=== PATIENT | female | born 1955 | race Caucasian/White ===

== ENCOUNTER 2018-11-30 10:12 | Outpatient (CLI) | payer BC, MEDICARE ==
[~2018-11-30] VITALS: Ht 170.2 cm; Wt 104.4 kg
[~2018-11-30 10:12] MED LIST: AC325T PO; ASP81TEC PO; MULT-974 PO; PANT40TA2 PO; PNT40TEC PO; SERT25TA5 PO
== END 2018-11-30 10:36 | disposition home or self-care (01) ==
LOC: PREOP 10:12
PROVIDERS: ATTEND Surgery
DX: Z01.818 Encounter for other preprocedural examination (principal)

== ENCOUNTER 2018-12-03 08:55 | Inpatient (IN) | payer BC, MEDICARE ==
[2018-12-03] VITALS (13 sets, daily range): BP systolic 106–138; BP diastolic 47–84
[~2018-12-03] VITALS: Ht 170.2 cm; Wt 104.4 kg
[2018-12-03] MEDS: LACTATED RINGERS 1,000 ML IV PRN ×3 (09:20→12:40)
[2018-12-03 09:24] LABS: BASOPHILS % (AUTO) 0 % (0-10); EOSINOPHILS # (AUTO) 0.1 10^3/uL (0.0-0.3); EOSINOPHILS % (AUTO) 2 % (0-10); HEMATOCRIT 42 % (35-52); HEMOGLOBIN 14.1 G/DL (11.5-16.0); LYMPHOCYTES # (AUTO) 2.1 X 10^3 (1.0-4.0); LYMPHOCYTES % (AUTO) 35 % (12-44); MEAN CORPUSCULAR HEMOGLOBIN 29 PG (25-34); MEAN CORPUSCULAR HGB CONC 34 G/DL (32-36); MEAN CORPUSCULAR VOLUME 85 FL (80-99); MEAN PLATELET VOLUME 9.7 FL (7.4-10.4); MONOCYTES # (AUTO) 0.4 X 10^3 (0.0-1.0); MONOCYTES % (AUTO) 6 % (0-12); NEUTROPHILS # (AUTO) 3.4 X 10^3 (1.8-7.8); NEUTROPHILS % (AUTO) 57 % (42-75); PLATELET COUNT 221 10^3/uL (130-400); RED CELL DISTRIBUTION WIDTH 13.2 % (10.0-14.5)
[2018-12-03] MEDS ORDERED: FAMOTIDINE 20MG/2ML IV (PEPCID) ONE (10:00)
[2018-12-03] MEDS ORDERED: FAMOTIDINE 20MG/2ML IV (PEPCID) IVP ONE (10:00)
[2018-12-03] MEDS ORDERED: ceFAZolin 2 GM/50 ML NS 50 ML IV ONE (10:00)
[2018-12-03] MEDS ORDERED: ceFAZolin 2 GM/50 ML NS 50 ML ONE (10:00)
--- NOTE | 2018-12-03 10:16 | Progress Note-Pre Operative ---
Pre-Operative Progress Note H&P Reviewed The H&P was reviewed, patient examined and no changes noted. Date Seen by Provider: Dec 03, 2018 Time Seen by Provider: 10:00 Date H&P Reviewed: Dec 03, 2018 Time H&P Reviewed: :00 Pre-Operative Diagnosis: morbid obesity, GERD, DJD ELIDA FERNANDO MD Dec 03, 2018 10:16
[2018-12-03] MEDS ORDERED: BUP/EPI 0.5% 1:200,000 (SENSORCAINE) 30 ML VIAL ONE (11:46)
[2018-12-03] MEDS ORDERED: fentaNYL INJECTION 100 MCG/2 ML AMP ONE ×2 (11:50→13:57)
[2018-12-03] MEDS ORDERED: SEVOFLURANE (ULTANE) 15 ML INHAL SOLN ONE ×5 (11:50→13:54)
[2018-12-03] MEDS ORDERED: ONDANSETRON 4 MG/2 ML (SDV) Z0FRAN ONE (11:50)
[2018-12-03] MEDS ORDERED: DEXAMETHASONE 10 MG/ML (DECADRON) 1 ML VIAL ONE (11:50)
[2018-12-03] MEDS ORDERED: ROCURONIUM 10 MG/ML 5 ML SYRINGE IV ONE (11:50)
[2018-12-03] MEDS ORDERED: proPOfol 200 MG/20 ML (DIPRIVAN) VIAL IV ONE (11:50)
[2018-12-03] MEDS ORDERED: MIDAZOLAM 2 MG/2 ML (VERSED) VIAL ONE (11:50)
[2018-12-03] MEDS ORDERED: LIDOCAINE PF 2% 5 ML (XYLOCAINE) VIAL ONE (11:50)
[2018-12-03] MEDS ORDERED: diphenhydrAMINE 50 MG/ML INJ (BENADRYL) IVP PRN (14:00)
[2018-12-03] MEDS ORDERED: fentaNYL INJECTION 1,000 MCG in NS (IVPB) 80 ML IV SCH (14:00)
[2018-12-03] MEDS ORDERED: ONDANSETRON 4 MG/2 ML (SDV) Z0FRAN IV PRN (14:00)
[2018-12-03] MEDS ORDERED: NALOXONE 0.4 MG/ML 1 ML (NARCAN) VIAL IV PRN (14:00)
[2018-12-03] MEDS ORDERED: diphenhydrAMINE 50 MG/ML INJ (BENADRYL) IV PRN (14:00)
[2018-12-03] MEDS ORDERED: NS IV 1000 ML 1,000 ML IV SCH (14:00)
[2018-12-03] MEDS ORDERED: METOCLOPRAMIDE INJ 10 MG/2 ML (REGLAN) IV PRN (14:00)
--- NOTE | 2018-12-03 14:00 | Progress Note-Post Operative ---
Post-Operative Progess Note Surgeon (s)/Art Objects Supervisor (s) Surgeon ELIDA FERNANDO MD Art Objects Supervisor: dianne florian TEMPLATE REPRODUCTION TECHNICIAN Pre-Operative Diagnosis morbid obesity, GERD, DJD Post-Operative Diagnosis same, hiatal hernia Procedure & Operative Findings Date of Procedure 12/03/18 Procedure Performed/Findings laparoscopic hiatal hernia repair and gastric sleeve resection. Anesthesia Type GET Estimated Blood Loss Estimated blood loss (mL): minimal Specimens/Packing Specimens Removed stomach ELIDA FERNANDO MD Dec 03, 2018 14:00
[2018-12-03] MEDS ORDERED: ONDN4T PO (14:11)
[2018-12-03] MEDS ORDERED: HYDR-34 PO (14:11)
--- NOTE | 2018-12-03 14:12 | Discharge Inst-Surgical ---
D/C Lap Instructions-ABDULLAHI Follow Up Appt in 2 weeks Activity as tolerated No driving for 24 hours No driving while on pain medications Incentive Spirometry use every 2 hours while awake Phase 1 Clear Liquid Diet 2 weeks. Symptoms to Report: Fever over 101 degree F, Nausea/Vomiting Infection Signs and Symptoms to report: Increased redness, Foul odor of wound, Increased drainage Bathing instructions: May shower Operative Area Clean/Dry; Keep incision clean/dry If any problems/questions: Contact your physician or go to Emergency Room ELIDA FERNANDO MD Dec 03, 2018 14:12
[2018-12-03] MEDS ORDERED: GLYCOPYRROLATE 0.2 MG/ML (ROBINUL) 2 ML VIAL ONE (14:19)
[2018-12-03] MEDS ORDERED: NEOSTIGMINE 1 MG/ML 5 ML SYRINGE ONE (14:19)
[2018-12-03] MEDS ORDERED: morphine INJ 10 MG/ML 1ML (SYR OR VIAL) ONE (14:26)
[2018-12-03] MEDS ORDERED: ONDANSETRON 4 MG/2 ML (SDV) Z0FRAN IVP PRN (14:30)
[2018-12-03] MEDS ORDERED: HYDROmorphone 2 MG/ML VIAL (DILAUDID) IV ONE (14:30)
[2018-12-03] MEDS ORDERED: morphine INJ 10 MG/ML 1ML (SYR OR VIAL) IVP ONE (14:30)
[2018-12-03] MEDS: 1/2 NS W/KCL 20 MEQ/L 1,000 ML IV SCH ×2 (16:26→23:48)
[2018-12-03] MEDS: metroNIDAZOLE 500MG/100ML IVPB 100 ML IV SCH ×2 (16:27→23:52)
[2018-12-03] MEDS: RT-ALBUTEROL SULF 2.5 MG/3 ML PRE-MIX VIAL INH SCH (16:29)
--- NOTE | 2018-12-03 16:31 | NUR ---
patient did not get her 1400 svn bt due to RT not getting to even see the patient until this time; svn bt's will get started at 1600
[2018-12-03] MEDS: ceFAZolin 2 GM IV Premixed 50 ML IV SCH (18:33)
[2018-12-03] MEDS: ONDANSETRON 4 MG/2 ML (SDV) Z0FRAN IVP SCH ×2 (18:34→23:52)
[2018-12-03] MEDS: METOCLOPRAMIDE INJ 10 MG/2 ML (REGLAN) IVP SCH ×2 (18:34→23:52)
--- NOTE | 2018-12-03 20:20 | OPERATIVE REPORT ---
DATE OF SERVICE: 12/03/2018 ATTENDING CUSTOMER SERVICE SALES ASSOCIATE: Leanne Ellison APRN. PREOPERATIVE DIAGNOSES: Morbid obesity, history of hiatal hernia and gastroesophageal reflux disease. POSTOPERATIVE DIAGNOSES: Morbid obesity, history of hiatal hernia and gastroesophageal reflux disease. PROCEDURE: Laparoscopic gastric sleeve resection and hiatal hernia repair. SURGEON: Elida Fernando MD DATA MANAGEMENT ANALYST: Russel Dowell APRN. ANESTHESIA: General endotracheal. ESTIMATED BLOOD LOSS: Minimal. FINDINGS: Significant sized hiatal hernia approximately 3 cm in size. Intra-abdominal adhesions secondary to previous surgery. DISPOSITION: The patient tolerated the procedure well. The patient is a 63-year-old female who is in our surgical weight loss program for the laparoscopic gastric sleeve resection and meets the medical criteria for bariatric surgery. She began to gain the majority of adult weight in the past 4 years. She reports 9 years ago, her and she did have an emotional struggle and began gaining weight over the past several years. She has tried diet programs including Atkins, Weight Watchers, grapefruit diet, [facility] diet, GM diet and would lose some weight; however, would regain the weight back. She also has tried exercise regimens including walking, treadmill, water aerobics, resistance weight training and would again however, did have some success; however, would regain the weight back. She has also tried medications including phentermine and Contrave, however, again would regain weight back after discontinuation of the medication. Her medical comorbidities related to obesity include gastroesophageal reflux disease, hiatal hernia, depression, degenerative joint disease. DESCRIPTION OF PROCEDURE: The patient was brought back to the operating room, laid supine on the table. After adequate IV pain and sedating medications and general endotracheal intubation, the abdomen was prepped and draped in standard surgical fashion. A 0.5% Marcaine with epinephrine was used to anesthetize the overlying skin in the left upper abdominal quadrant and transverse skin incision made using a 15-blade. An 0 silk suture was applied to the medial aspect of the incision for traction and a Veress needle inserted with a low opening pressure of 0 mmHg. The abdomen was then insufflated to 15 mmHg pressure. The Veress needle removed and a 5 mm Xcel trocar placed followed by a 5 mm 45 degree angle laparoscope visualizing the peritoneal cavity. A 4-quadrant abdominal exploration was performed. There were omental adhesions towards the abdominal wall secondary to a previous Jamal incision as well as lower midline laparotomy incision. There was also a hiatal hernia identified which was moderate in size, approximately 3 cm. Under direct visualization, we then proceeded to place a midabdominal left of midline 10 mm port after the skin and peritoneal lining were anesthetized using 0.5% Marcaine with epinephrine and a transverse skin incision made using a 15-blade. In a similar manner, a midabdominal right of midline 15 mm port was placed followed by a right upper abdominal quadrant 5 mm port. The epigastric region was then anesthetized and a small skin incision made using 11-blade and through this opening, a tract was then created using a trocar to a 5 mm port. Through this opening, a medium sized Deb liver retractor was placed and the left lobe of the liver retracted anteriorly and superiorly. The patient was then placed in steep reverse Trendelenburg position. We measured 6 cm from the pylorus along the antrum and marked this with a marking pen. The gastrocolic ligament was then opened using Sonicision entering the lesser sac. We then proceeded with caudal dissection until we were approximately 2 cm below our marking using Sonicision. We then proceeded cephalad taking down the short gastric vessels using the Sonicision. The angle of His connective tissue fibers were then taken down as well as the posterior stomach behind this region. We then proceeded with the hiatal hernia repair and the entire hernia sac was reduced using a Sonicision and blunt dissection taking the phrenoesophageal ligament as well. We then proceeded to repair the defect posteriorly using interrupted 2-0 Surgidac sutures using EndoStitch device restoring the esophageal hiatal architecture. Good hemostasis was observed. A 42-Mauritanian bougie was then placed into the pylorus under direct visualization. We then proceed with a gastric sleeve resection approximately 2 cm below our marking using a GABE polyglycolic acid black load. We then proceeded with one 60 mm black load followed by 60 mm purple loads completing our resection. The stomach was removed through the 15 mm port site. Clips were then placed onto the staple line and then fibrin glue was placed on to the staple line and the omentum placed over the staple line. The fascia and peritoneum to the 10 and 15 mm port sites were then closed under direct visualization using a Tim-Daxa device and 0 Vicryl suture. The abdomen was desufflated. The remaining ports removed. All skin incisions were closed using 4-0 Monocryl running subcuticular sutures. Wounds were then cleaned. We then covered with Dermabond. The patient tolerated the procedure well. We will admit her to the floor and proceed with DVT prophylaxis with early ambulation, calf SCDs as well as Lovenox. We will also start her on a BOTTOM CAGER for pain control. We will also start a phase I clear liquid diet tomorrow morning and when she is able to tolerate at least 60 mL of liquids every half hour, is ambulating well and has adequate pain control with oral pain medication, we will discharge her home. Job ID: [id number] DocumentID: [id number] Dictated Date: 12/03/2018 14:22:32 Entertainment Lawyer Date: 12/03/2018 20:19:19 Dictated By: ELIDA FERNANDO MD MTDD
[2018-12-03] MEDS: ENOXAPARIN 40 MG/0.4 ML (LOVENOX) SYR SC SCH (21:07)
[2018-12-04 00:20] VITALS: BP 123/70
[2018-12-04] MEDS: ceFAZolin 2 GM IV Premixed 50 ML IV SCH ×2 (01:53→10:35)
[2018-12-04] MEDS: RT-ALBUTEROL SULF 2.5 MG/3 ML PRE-MIX VIAL INH SCH ×6 (02:24→22:50)
[2018-12-04 03:38] VITALS: BP 122/74
[2018-12-04 05:09] LABS: HEMOGLOBIN 13.7 G/DL (11.5-16.0); MEAN PLATELET VOLUME 9.8 FL (7.4-10.4); RED CELL DISTRIBUTION WIDTH 13.1 % (10.0-14.5); WHITE BLOOD COUNT 12.2 10^3/uL (4.3-11.0)
[2018-12-04] MEDS: ONDANSETRON 4 MG/2 ML (SDV) Z0FRAN IVP SCH ×2 (05:40→12:27)
[2018-12-04] MEDS: METOCLOPRAMIDE INJ 10 MG/2 ML (REGLAN) IVP SCH ×2 (05:40→12:28)
[2018-12-04 05:49] LABS: BUN/CREATININE RATIO 11; CARBON DIOXIDE 21 MMOL/L (21-32); CHLORIDE 105 MMOL/L (98-107); GFR ESTIMATED > 60; GLUCOSE 120 MG/DL (70-105); POTASSIUM 4.2 MMOL/L (3.6-5.0); SODIUM 135 MMOL/L (135-145)
[2018-12-04] MEDS: metroNIDAZOLE 500MG/100ML IVPB 100 ML IV SCH (06:43)
[2018-12-04] MEDS: 1/2 NS W/KCL 20 MEQ/L 1,000 ML IV SCH ×3 (08:14→12:29)
[2018-12-04 08:22] VITALS: BP 109/59
[2018-12-04] MEDS: oxyCODONE 5 MG/5 ML ORAL SOLN (roxiCODONE) 5 ML UDC PO PRN ×3 (08:26→20:14)
[2018-12-04] MEDS: PANTOPRAZOLE 40 MG (PROTONIX) TAB PO SCH (08:26)
[2018-12-04] MEDS: SENNA W/DOCUSATE (SENOKOT S) TABLET PO SCH (08:26)
[2018-12-04] MEDS: ENOXAPARIN 40 MG/0.4 ML (LOVENOX) SYR SC SCH ×2 (08:26→20:14)
[2018-12-04] MEDS: PANTOPRAZOLE 40 MG (PROTONIX) VIAL IV SCH (09:39)
[2018-12-04 12:53] VITALS: BP 128/67
[2018-12-04] MEDS ORDERED: ONDANSETRON 4 MG/2 ML (SDV) Z0FRAN IVP PRN (14:00)
[2018-12-04] MEDS ORDERED: METOCLOPRAMIDE INJ 10 MG/2 ML (REGLAN) IVP PRN (14:00)
--- NOTE | 2018-12-04 14:08 | Anesthesia-General Post-Op ---
General Patient Condition Mental Status/LOC: Same as Preop Cardiovascular: Satisfactory Nausea/Vomiting: Absent Respiratory: Satisfactory Pain: Controlled Complications: Absent Post Op Complications Complications None Follow Up Care/Instructions Patient Instructions None needed. Anesthesia/Patient Condition Patient Condition Patient is doing well, no complaints, stable vital signs, no apparent adverse anesthesia problems. MISSY CARRANZA DO Dec 04, 2018 14:08
--- NOTE | 2018-12-04 14:58 | Progress Note (SOAP) ---
Subjective Date Seen by a Provider: Dec 04, 2018 Time Seen by a Provider: 14:45 Subjective/Events-last exam doing well. tolerating liquids. pain controlled. no fever/chills. ambulating well. Objective Exam Vital Signs Date Time Temp Pulse Resp B/P (MAP) Pulse Ox O2 Delivery O2 Flow Rate FiO2 12/04/18 14:35 94 Room Air 12/04/18 12:53 97.4 84 19 128/67 (87) 96 Room Air 0.00 12/04/18 10:55 100 Room Air 12/04/18 09:00 98 Room Air 12/04/18 08:22 97.6 99 16 109/59 (76) 99 Nasal Cannula 2.00 12/04/18 07:23 20 12/04/18 06:43 97 Nasal Cannula 2.00 12/04/18 03:38 97.1 71 21 122/74 (90) 100 Nasal Cannula 2.00 12/04/18 02:25 96 Nasal Cannula 2.00 12/04/18 00:20 97.1 65 18 123/70 (87) 98 Nasal Cannula 2.00 12/03/18 22:02 99 Nasal Cannula 2.00 12/03/18 21:00 20 12/03/18 20:00 Nasal Cannula 2.00 12/03/18 19:02 97.9 60 18 126/62 (83) 100 Nasal Cannula 2.00 12/03/18 18:30 58 135/76 (95) 100 Nasal Cannula 3.00 12/03/18 17:30 91 132/84 (100) 99 Nasal Cannula 3.00 12/03/18 16:30 54 122/77 (92) 99 Nasal Cannula 3.00 12/03/18 15:30 98.4 50 15 119/76 (90) 99 Nasal Cannula 3.00 12/03/18 15:20 Nasal Cannula 3.00 12/03/18 15:10 97.4 16 99 Nasal Cannula 3 12/03/18 15:00 16 99 Nasal Cannula 3 I & O 12/04/18 07:00 Intake Total 2440 ml Output Total 2025 ml Balance 415 ml Capillary Refill : General Appearance: No Apparent Distress HEENT: PERRL/EOMI Neck: Full Range of Motion Respiratory: Chest Non Tender, Lungs Clear Cardiovascular: Regular Rate, Rhythm Gastrointestinal: normal bowel sounds, soft Extremity: Normal Capillary Refill Neurologic/Psychiatric: Alert, Oriented x3 Skin: Normal Color Lymphatic: No Adenopathy Results Lab Laboratory Tests 12/04/18 04:40: White Blood Count 12.2H, Red Blood Count 4.71, Hemoglobin 13.7, Hematocrit 39, Mean Corpuscular Volume 84, Mean Corpuscular Hemoglobin 29, Mean Corpuscular Hemoglobin Concent 35, Red Cell Distribution Width 13.1, Platelet Count 231, Mean Platelet Volume 9.8, Sodium Level 135, Potassium Level 4.2, Chloride Level 105, Carbon Dioxide Level 21, Anion Gap 9, Blood Urea Nitrogen 8, Creatinine 0.70, Estimat Glomerular Filtration Rate > 60, BUN/Creatinine Ratio 11, Glucose Level 120H, Calcium Level 9.0 Microbiology 12/03/18 MRSA Screen - Final, Complete MRSA not isolated Assessment/Plan Assessment/Plan Assess & Plan/Chief Complaint s/p laparoscopic gastric sleeve resection and hiatal hernia repair. continue phase 1 clear liquids for 2 weeks. continue ambulation. home soon. Clinical Quality Measures DVT/VTE Risk/Contraindication: Risk Factor Score Per Nursin RFS Level Per Nursing on Admit: 4+=Very High ELIDA FERNANDO MD Dec 04, 2018 14:58
[2018-12-04 15:32] VITALS: BP 100/53
--- OUTSIDE RECORDS SUMMARY | 2018-12-04 16:18 | XMS REPORT | CCD ---
Author Author MIKE FREY Unknown Address [address] [place] [address] Care Team Providers Care Welder Production Line Combination Name Role Phone YESSY HEARD, YAKOV Dwyer Attphys Allergies Allergy Code Allergy Type Reaction Status No Known Allergies 0 Drug allergy Active Active Medications Unknown or Not Available. Problems Unknown or Not Available. Procedures Procedure Code Procedure Type Date Esophagogastroduodenoscopy, flexible, transoral; [place] [id number] CPT 04/18/2017 PATHOLOGY ORDER [id number] SNOMED CT 04/18/2017 Results Unknown or Not Available. Function Status Unknown or Not Available. History of Immunizations Unknown or Not Available. Plan of Treatment Unknown or Not Available. Social History Smoking Status Code Start Date End Date Never smoker [id number] Vital Signs Vital Sign Value Unit Date/Time Recent/Initial? BMI (Body Mass Index) 32.69 kg/m2 04/17/2017 13:00 Initial VS Weight Measured 215 [lb_av] 04/17/2017 13:00 Initial VS Height 68 [in_i] 04/17/2017 13:00 Initial VS BSA (Body Surface Area) 2.16 m2 04/17/2017 13:00 Initial VS Function Status Unknown or Not Available. Goals Unknown or Not Available. ASSESSMENTS Unknown or Not Available. Health Concerns Section Unknown or Not Available.
--- OUTSIDE RECORDS SUMMARY | 2018-12-04 16:20 | XMS REPORT ---
Author Author Verenice Ellison [facility] Address [address] [place], [place] [id number] Care Team Providers Care Revenue Stamper Name Role Phone Verenice Ellison PCP Allergies and Adverse Reactions Name Reaction Notes NO KNOWN DRUG ALLERGIES Plan of Treatment Planned Activity Comments Planned Date Planned Time Plan/Goal Shoulder Min 2Views - Main 11/13/2018 12:00 AM Screening mammography of both breasts 11/25/2014 12:00 AM Bone and/or joint imaging; whole body 11/25/2014 12:00 AM Medications Active Name Start Date Estimated Completion Date SIG Comments pantoprazole 40 mg oral tablet,delayed release (DR/EC) take 1 tablet (40 mg) by oral route once daily sertraline 50 mg oral tablet 08/19/2018 TAKE ONE/HALF TABLET BY MOUTH ONCE DAILY FOR 7 DAYS AND THEN INCREASE TO 1 TABLET BY MOUTH ONCE DAILY Protonix 40 mg oral tablet,delayed release (DR/EC) 10/02/2018 04/30/2019 take 1 tablet (40 mg) by oral route once daily for 30 days Singulair 10 mg oral tablet 10/02/2018 12/26/2019 take 1 tablet (10 mg) by oral route once daily in the evening for 90 days prednisone 10 mg oral tablet 10/02/2018 12/31/2018 use as directed meclizine 25 mg oral tablet 10/02/2018 12/31/2018 take 1 tablet (25 mg) by oral route 4 times per day for 90 days hydrocodone-acetaminophen 10-325 mg oral tablet 11/13/2018 12/13/2018 take 1 tablet by oral route every 4-6 hours as needed for pain for 30 days cyclobenzaprine 10 mg oral tablet 11/13/2018 02/11/2019 take 1 tablet (10 mg) by oral route 3 times per day for 30 days Name Start Date Expiration Date SIG Comments prednisone 20 mg oral tablet 08/29/2014 09/07/2014 take 3 tabs PO x 3 days, then 2 tabs PO x 3 days, and then 1 tab PO x 3 days Ultram 50 mg oral tablet 11/25/2014 take 1 tablet (50 mg) by oral route every 4-6 hours as needed hydrocodone-acetaminophen 5-325 mg oral tablet 12/27/2014 take 1 tablet by oral route every 6 hours as needed for pain prednisone 20 mg oral tablet 01/04/2015 01/13/2015 take 3 tabs PO x 3 days, then 2 tabs PO x 3 days, and then 1 tab PO x 3 days cyclobenzaprine 10 mg oral tablet 07/18/2015 take 1 tablet (10 mg) by oral route 2 times per day as needed for muscle spasms/tension hydrocodone-acetaminophen 5-325 mg oral tablet 11/22/2015 take 1 tablet by oral route every 6 hours as needed for pain colchicine 0.6 mg oral tablet 12/27/2015 take 2 tablets (1.2 mg) by oral route initially, then take 1 tab (0.6 mg ) ievery hour until pain is gone or develops diarrhea Augmentin 875-125 mg oral tablet 04/25/2016 05/05/2016 take 1 tablet by oral route every 12 hours for 10 days phentermine 37.5 mg oral capsule 06/21/2016 07/21/2016 take 1 capsule (37.5 mg) by oral route once daily before breakfast for 30 days vitamin T05-uwkyl acid 500-400 mcg oral tablet 08/29/2016 09/28/2016 take 1 tablet by oral route daily for 30 days phentermine 37.5 mg oral tablet 08/29/2016 09/28/2016 take 1 tablet (37.5 mg) by oral route once daily before breakfast for 30 days Contrave 8-90 mg oral tablet extended release 10/22/2016 01/20/2017 take 2 tablets by oral route 2 times per day in the morning and evening for 30 days Zorvolex 35 mg oral capsule 04/15/2017 07/14/2017 TAKE ONE (1) CAPSULE BY MOUTH THREE (3) TIMES DAILY Zoloft 50 mg oral tablet 11/03/2017 take 1/2 tablet by oral route once daily for 7 days and then increase to 1 tablet by oral route once daily Discontinued Name Start Date Discontinued Date SIG Comments cyclobenzaprine 10 mg oral tablet 01/04/2015 07/18/2015 take 1 tablet (10 mg) by oral route 3 times per day as needed Zorvolex 35 mg oral capsule 01/04/2015 07/18/2015 TAKE 1 CAPSULE BY MOUTH THREE TIMES DAILY ProAir HFA 90 mcg/actuation inhalation HFA aerosol inhaler 03/16/2016 10/22/2016 inhale 1 - 2 puffs (90 - 180 mcg) by inhalation route every 4-6 hours as needed aspirin 81 mg oral tablet,delayed release (DR/EC) 05/04/2018 take 1 tablet (81 mg) by oral route once daily omeprazole 40 mg oral capsule,delayed release(DR/EC) 04/28/2017 take 1 capsule (40 mg) by oral route 2 times per day before a meal sucralfate 1 gram oral tablet 05/04/2018 take 1 tablet (1 gram) by oral route 4 times per day on an empty stomach 1 hour before meals and at bedtime Vitamin D3 oral 05/04/2018 Daily biotin oral 05/04/2018 Daily hxtlcri-rtccgcxvu-zfbj oral 05/04/2018 Daily vitamin B complex oral tablet 05/04/2018 take 1 tablet by oral route daily Probiotic oral 05/04/2018 Daily Turmeric Curcumin 05/04/2018 Daily Problem List Description Status Onset Depression Active Chronic back pain Active Vital Signs Date Time BP-Sys(mm[Hg] BP-Jaleesa(mm[Hg]) HR(bpm) RR(rpm) Temp WT HT HC BMI BSA BMI Percentile O2 Sat(%) 11/13/2018 1:21:00 PM 116 mmHg 68 mmHg 107 bpm 18 rpm 97.7 F 234 lbs 66 in 37.7682 kg/m 2.2232 m 97 % 10/02/2018 9:44:00 AM 110 mmHg 64 mmHg 61 bpm 18 rpm 98.8 F 230.5 lbs 66 in 37.20 kg/m2 2.21 m2 98 % 05/04/2018 3:01:00 PM 124 mmHg 76 mmHg 74 bpm 16 rpm 98.1 F 225 lbs 66 in 36.3156 kg/m 2.18 m 98 % 04/28/2017 11:59:00 AM 102 mmHg 80 mmHg 67 bpm 16 rpm 97.6 F 97 % 04/15/2017 2:21:00 PM 110 mmHg 70 mmHg 75 bpm 16 rpm 96.4 F 216 lbs 66 in 34.863 kg/m 2.136 m 99 % 11/26/2016 1:22:00 PM 114 mmHg 70 mmHg 79 bpm 16 rpm 97.1 F 210.125 lbs 66 in 33.91 kg/m2 2.11 m2 97 % 10/22/2016 4:11:00 PM 110 mmHg 61 mmHg 71 bpm 20 rpm 97.3 F 209.375 lbs 66 in 33.7937 kg/m 2.103 m 96 % 08/29/2016 3:26:00 PM 120 mmHg 70 mmHg 56 bpm 16 rpm 97.6 F 210 lbs 67 in 32.89 kg/m2 2.12 m2 96 % 06/21/2016 10:50:00 AM 130 mmHg 80 mmHg 60 bpm 16 rpm 96.7 F 207 lbs 66 in 33.41 kg/m2 2.09 m2 98 % 04/25/2016 4:07:00 PM 130 mmHg 72 mmHg 72 bpm 18 rpm 97 F 205 lbs 67 in 32.1072 kg/m 2.0966 m 97 % 03/16/2016 10:16:00 AM 118 mmHg 70 mmHg 67 bpm 18 rpm 97.3 F 205 lbs 67 in 32.11 kg/m2 2.10 m2 100 % 02/08/2016 3:43:00 PM 110 mmHg 66 mmHg 80 bpm 18 rpm 98.5 F 208 lbs 68 in 31.626 kg/m 2.1276 m 99 % 12/27/2015 10:49:00 AM 128 mmHg 74 mmHg 61 bpm 18 rpm 96.3 F 207.125 lbs 68 in 31.49 kg/m2 2.12 m2 99 % 11/22/2015 1:40:00 PM 112 mmHg 76 mmHg 57 bpm 17 rpm 97.6 F 216 lbs 68 in 32.8424 kg/m 2.1681 m 97 % 10/04/2015 3:09:00 PM 130 mmHg 80 mmHg 61 bpm 16 rpm 96.9 F 227 lbs 68 in 34.51 kg/m2 2.22 m2 98 % 09/12/2015 8:35:00 AM 110 mmHg 70 mmHg 59 bpm 16 rpm 96.5 F 214 lbs 68 in 32.5383 kg/m 2.158 m 99 % 07/18/2015 2:33:00 PM 117 mmHg 71 mmHg 80 bpm 20 rpm 96.8 F 220 lbs 99 % 05/25/2015 3:39:00 PM 130 mmHg 68 mmHg 69 bpm 16 rpm 96.7 F 213 lbs 98 % 01/04/2015 1:59:00 PM 115 mmHg 72 mmHg 63 bpm 20 rpm 98.2 F 216 lbs 68 in 32.8424 kg/m 2.1681 m 99 % 12/27/2014 2:25:00 PM 120 mmHg 70 mmHg 53 bpm 18 rpm 98.7 F 216 lbs 68 in 32.84 kg/m2 2.17 m2 98 % 11/25/2014 3:52:00 PM 102 mmHg 62 mmHg 65 bpm 20 rpm 97.4 F 219 lbs 68 in 33.2985 kg/m 2.1831 m 97 % 11/15/2014 3:54:00 PM 115 mmHg 69 mmHg 69 bpm 20 rpm 97.8 F 217.2 lbs 68 in 33.02 kg/m2 2.17 m2 99 % 08/29/2014 3:41:00 PM 104 mmHg 66 mmHg 67 bpm 20 rpm 96.6 F 221 lbs 68 in 33.6026 kg/m 2.1931 m 95 % 08/10/2014 3:44:00 PM 115 mmHg 61 mmHg 81 bpm 20 rpm 97.8 F 221 lbs 68 in 33.60 kg/m2 2.19 m2 96 % 03/05/2010 2:29:00 PM 100 mmHg 60 mmHg 64 bpm 18 rpm 97.3 F 243 lbs 01/09/2010 1:54:00 PM 96 mmHg 58 mmHg 88 bpm 18 rpm 98.5 F 244 lbs 68 in 37.0997 kg/m 2.3044 m Social History Name Description Comments Tobacco Never smoker 10/02/2018 - History of Procedures Date Ordered Description Order Status 05/25/2015 12:00 AM THER/PROPH/DIAG INJ SC/IM Reviewed 05/25/2015 12:00 AM Depo-Medrol, Per 80 Mg [facility]#[address]-03 Reviewed 05/25/2015 12:00 AM Decadron, Per 1 Mg [facility]# [address]-45 Reviewed 09/12/2015 12:00 AM COMPLETE CBC W/AUTO DIFF WBC Reviewed 09/12/2015 12:00 AM COMPREHEN METABOLIC PANEL Reviewed 09/12/2015 12:00 AM LIPID PANEL Reviewed 10/04/2015 12:00 AM ASSAY OF FREE THYROXINE Reviewed 10/04/2015 12:00 AM ASSAY THYROID STIM HORMONE Reviewed 10/04/2015 12:00 AM VITAMIN B-12 Reviewed 10/04/2015 12:00 AM ASSAY OF FOLIC ACID SERUM Reviewed 10/04/2015 12:00 AM URNLS DIP STICK/TABLET RGNT AUTO W/O MICROSCOPY Reviewed 04/03/2016 12:00 AM MAMMOGRAPHY BILATERAL DX DIGITAL Reviewed 04/25/2016 12:00 AM COMPLETE CBC W/AUTO DIFF WBC Reviewed 04/25/2016 12:00 AM COMPREHEN METABOLIC PANEL Reviewed 04/25/2016 12:00 AM X-RAY EXAM OF ABDOMEN Reviewed 08/28/2016 12:00 AM COMPLETE CBC W/AUTO DIFF WBC Reviewed 08/28/2016 12:00 AM COMPREHEN METABOLIC PANEL Reviewed 08/28/2016 12:00 AM LIPID PANEL Reviewed 08/28/2016 12:00 AM ASSAY THYROID STIM HORMONE Reviewed 09/02/2016 12:00 AM MAMMOGRAPHY SCREENING, DIGITAL Reviewed 11/26/2016 12:00 AM US EXAM OF HEAD AND NECK Reviewed 10/02/2018 12:00 AM COMPLETE CBC W/AUTO DIFF WBC Reviewed 10/02/2018 12:00 AM ASSAY THYROID STIM HORMONE Reviewed 10/02/2018 12:00 AM ASSAY OF FREE THYROXINE Reviewed 10/02/2018 12:00 AM JADA-MARQUEZ NUCLEAR ANTIGEN Reviewed 10/02/2018 12:00 AM JADA-MARQUEZ CAPSID VCA Reviewed 10/02/2018 12:00 AM ROUTINE VENIPUNCTURE Reviewed 11/13/2018 12:00 AM Decadron 8mg Injection Reviewed 11/13/2018 12:00 AM Depo-Medrol 80mg Injection Reviewed 11/13/2018 12:00 AM THER/PROPH/DIAG INJ SC/IM Reviewed 01/18/2010 12:00 AM MAMMOGRAM SCREENING Reviewed 08/10/2014 12:00 AM METABOLIC PANEL TOTAL CA Reviewed 08/10/2014 12:00 AM LIPID PANEL Reviewed 08/10/2014 12:00 AM General Surgery Consult Reviewed 08/29/2014 12:00 AM RADEX HIP UNILATERAL COMPLETE MINIMUM 2 VIEWS Reviewed 11/15/2014 12:00 AM RADEX SPINE THORACIC 2 VIEWS Reviewed 11/15/2014 12:00 AM RADEX SPINE LUMBOSACRAL 2/3 VIEWS Reviewed 11/15/2014 12:00 AM THER/PROPH/DIAG INJ SC/IM Reviewed 11/15/2014 12:00 AM Decadron, Per 1 Mg [facility]# [address]-48 Reviewed 11/15/2014 12:00 AM Depo-Medrol, Per 80 Mg [facility]#[address]-32 Reviewed 11/17/2014 12:00 AM MRI LUMBAR SPINE W/O DYE Reviewed 11/17/2014 12:00 AM MRI CHEST SPINE W/DYE Reviewed Results Summary Date and Description Results 09/12/2015 9:45 AM WBC 6.8 RBC 4.65 HGB 13.50 g/dLHCT 41.20 %MCV 89.0 fLMCH 29.0 pgMCHC 32.80 g/dLRDW SD 43 RDW CV 13.20 %MPV 9.0 fLPLT 210 NRBC# 0.00 NRBC% 0.0 %NEUT 63.50 %%LYMP 28.70 %%MONO 5.70 %%EOS 1.60 %%BASO 0.40 %#NEUT 4.33 #LYMP 1.96 #MONO 0.39 #EOS 0.11 #BASO 0.03 MANUAL DIFF NOT IND TRIGLYCERIDES 71.0 mg/dLCHOLESTEROL 182.0 mg/dLHDL 70.0 mg/dLTOT CHOL/HDL 2.6 LDL (CALC) 98.0 mg/dLGLUCOSE 94.0 mg/dLSODIUM 140.0 mmol/LPOTASSIUM 4.70 mmol/LCHLORIDE 108.0 mmol/LCO2 26.0 mmol/LBUN 15.0 mg/dLCREATININE 0.80 mg/dLSGOT/AST 20.0 IU/LSGPT/ALT 32.0 IU/LALK PHOS 75.0 IU/LTOTAL PROTEIN 6.60 g/dLALBUMIN 4.20 g/dLTOTAL BILI 0.30 mg/dLCALCIUM 9.30 mg/dLAGE 60 GFR NonAA 73 GFR AA 88 eGFR >60 mL/min/1.73meGFR AA* >60 10/04/2015 3:55 PM COLOR YELLOW APPEARANCE CLEAR SPEC GRAV 1.020 pH 6.0 PROTEIN NEGATIVE GLUCOSE NEGATIVE mg/dLKETONE NEGATIVE BILIRUBIN NEGATIVE BLOOD NEGATIVE NITRITE NEGATIVE LEUK SCREEN NEGATIVE MICRO INDICATED? NOT INDICATED TSH 2.740 uIU/mLVITAMIN B12 360.0 pg/mLFOLATE 11.10 ng/mLFREE T4 1.05 04/25/2016 4:42 PM GLUCOSE 96.0 mg/dLSODIUM 142.0 mmol/LPOTASSIUM 3.80 mmol/LCHLORIDE 107.0 mmol/LCO2 27.0 mmol/LBUN 14.0 mg/dLCREATININE 0.80 mg/dLSGOT/AST 23.0 IU/LSGPT/ALT 22.0 IU/LALK PHOS 152.0 IU/LTOTAL PROTEIN 7.30 g/dLALBUMIN 4.40 g/dLTOTAL BILI 0.20 mg/dLCALCIUM 9.30 mg/dLAGE 60 GFR NonAA 73 GFR AA 88 eGFR >60 mL/min/1.73meGFR AA* >60 WBC 8.0 RBC 4.48 HGB 12.80 g/dLHCT 39.20 %MCV 88.0 fLMCH 28.60 pgMCHC 32.70 g/dLRDW SD 40 RDW CV 12.60 %MPV 9.70 fLPLT 261 NRBC# 0.00 NRBC% 0.0 %NEUT 64.40 %%LYMP 27.50 %%MONO 5.50 %%EOS 1.80 %%BASO 0.50 %#NEUT 5.13 #LYMP 2.19 #MONO 0.44 #EOS 0.14 #BASO 0.04 MANUAL DIFF NOT IND 08/29/2016 5:25 AM WBC 6.4 RBC 4.35 HGB 12.70 g/dLHCT 38.40 %MCV 88.0 fLMCH 29.20 pgMCHC 33.10 g/dLRDW SD 41 RDW CV 12.70 %MPV 9.20 fLPLT 196 NRBC# 0.00 NRBC% 0.0 %NEUT 59.90 %%LYMP 31.0 %%MONO 6.60 %%EOS 2.0 %%BASO 0.30 %#NEUT 3.81 #LYMP 1.97 #MONO 0.42 #EOS 0.13 #BASO 0.02 MANUAL DIFF NOT IND TSH 2.830 uIU/mLGLUCOSE 85.0 mg/dLSODIUM 142.0 mmol/LPOTASSIUM 4.10 mmol/LCHLORIDE 107.0 mmol/LCO2 26.0 mmol/LBUN 16.0 mg/dLCREATININE 0.70 mg/dLSGOT/AST 26.0 IU/LSGPT/ALT 34.0 IU/LALK PHOS 129.0 IU/LTOTAL PROTEIN 6.80 g/dLALBUMIN 4.0 g/dLTOTAL BILI 0.50 mg/dLCALCIUM 9.10 mg/dLAGE 61 GFR NonAA 85 GFR AA 103 eGFR >60 mL/min/1.73meGFR AA* >60 TRIGLYCERIDES 42.0 mg/dLCHOLESTEROL 177.0 mg/dLHDL 74.0 mg/dLTOT CHOL/HDL 2.4 LDL (CALC) 95.0 mg/dL 10/02/2018 10:05 AM TSH 1.51 WBC 6.2 RBC 4.98 HGB 14.3 HCT 43.6 MCV 88 MCH 28.7 MCHC 32.8 RDW SD 44 RDW CV 13.8 MPV 10.3 PLT 273 NRBC# 0.00 NRBC% 0.0 %NEUT 56.5 %LYMP 34.0 %MONO 6.5 %EOS 2.3 %BASO 0.5 #NEUT 3.48 #LYMP 2.09 #MONO 0.40 #EOS 0.14 #BASO 0.03 MANUAL DIFF NOT IND FREE T4 0.96 EBV Ab VCA, IgM <36.0 EBV Early Antigen Ab, IgG 25.7 EBV Ab VCA, IgG 330.0 EBV Nuclear Antigen Ab,IgG <18.0 Interpretation: COMMENT History Of Immunizations Not available. History of Past Illness Name Date of Onset Comments Screening Examination for Breast Cancer Jan 09 2010 1:57PM Abdominal pain, epigastric Mar 05 2010 2:30PM Depression Chronic back pain Routine adult health maintenance Aug 10 2014 3:48PM Ischemic heart disease screen Aug 10 2014 3:48PM Colon cancer screening Aug 10 2014 3:48PM Left hip pain Aug 29 2014 4:10PM Colon Cancer Screening Aug 29 2014 3:43PM Thoracic back pain Nov 15 2014 3:56PM Lumbar pain Nov 15 2014 3:56PM Lumbar pain Nov 17 2014 11:26AM Thoracic back pain Nov 17 2014 11:26AM Thoracic back pain Nov 25 2014 3:55PM Lumbar back pain Nov 25 2014 3:55PM Breast cancer screening Nov 25 2014 3:55PM Abnormal radiographic examination Nov 25 2014 3:55PM Back pain Dec 27 2014 2:27PM Thoracic back pain Jan 04 2015 2:01PM Lumbar back pain Jan 04 2015 2:01PM Right-sided low back pain with right-sided sciatica May 25 2015 3:40PM Chronic back pain greater than 3 months duration Jul 18 2015 2:36PM Pain management Jul 18 2015 2:36PM Depression Jul 18 2015 2:36PM Annual physical exam Sep 12 2015 8:37AM Fatigue Oct 04 2015 3:10PM Dysuria Oct 04 2015 3:10PM Chronic back pain Nov 22 2015 1:45PM Acute gout involving toe of right foot, unspecified cause Nov 22 2015 1:45PM BMI 32.0-32.9,adult Nov 22 2015 1:45PM Dietary counseling and surveillance Nov 22 2015 1:45PM Acute gout involving toe of right foot, unspecified cause Dec 27 2015 10:50AM Dietary counseling and surveillance Dec 27 2015 10:50AM BMI 31.0-31.9,adult Dec 27 2015 10:50AM Dietary counseling and surveillance Feb 08 2016 3:53PM BMI 31.0-31.9,adult Feb 08 2016 3:53PM Chronic back pain Feb 08 2016 3:53PM Non morbid obesity due to excess calories Feb 08 2016 3:53PM Upper respiratory infection Mar 16 2016 10:19AM Cough Mar 16 2016 10:19AM Fatigue Mar 16 2016 10:19AM Screening for breast cancer Apr 03 2016 3:23PM Sinusitis Apr 25 2016 4:12PM Generalized abdominal pain Apr 25 2016 4:12PM Dietary counseling Apr 25 2016 4:12PM BMI 32.0-32.9,adult Apr 25 2016 4:12PM Dietary counseling Jun 21 2016 10:52AM BMI 32.0-32.9,adult Jun 21 2016 10:52AM Moderate episode of recurrent major depressive disorder Jun 21 2016 10:52AM Annual physical exam Aug 28 2016 10:30AM Fatigue Aug 28 2016 10:30AM Screening for breast cancer Sep 02 2016 10:54AM Annual physical exam Aug 29 2016 3:28PM Dorsalgia, unspecified Oct 22 2016 4:15PM Other chronic pain Oct 22 2016 4:15PM Dietary counseling and surveillance Oct 22 2016 4:15PM Polyphagia Oct 22 2016 4:15PM Dysphagia, unspecified type Nov 26 2016 1:26PM Abdominal pain, epigastric Apr 15 2017 2:21PM Dyspepsia Apr 15 2017 2:21PM Chronic hypertrophic gastritis Apr 28 2017 12:00PM Gastric erosion determined by endoscopy Apr 28 2017 12:00PM Abdominal pain, epigastric May 04 2018 3:01PM Dyspepsia May 04 2018 3:01PM [place] exposure Oct 02 2018 9:47AM Pneumonia Oct 02 2018 9:47AM Hypothyroid Oct 02 2018 9:47AM Right shoulder pain Nov 13 2018 1:28PM Plantar fasciitis of left foot Nov 13 2018 1:28PM Obesity Nov 13 2018 1:28PM Depression Nov 13 2018 1:28PM Asthma Nov 13 2018 1:28PM Payers Insurance Name Company Name Plan Name Plan Number Policy Number Policy Group Number Start Date [facility] [id number] Saturday, 2018 [employer] [id number] N/A [employer] Tuesday, 2009 [employer] [place] [id number] Saturday, 2014 [employer] [place] [id number] Thursday, 2017 Medicare Part B Medicare Of [place] [id number] Saturday, 2018 [employer] [place] [id number] N/A Medicare Part B Medicare [facility] [id number] Saturday, 2018 History of Encounters Visit Date Visit Type Provider 11/13/2018 Office visit Verenice Ellison SECURITY SPECIALIST 10/02/2018 Office visit Verenice Ellison SECURITY SPECIALIST 05/07/2018 Surgery Bhavesh Grider MD 05/04/2018 Office visit Bhavesh Grider MD 04/28/2017 Office visit Bhavesh Grider MD 04/18/2017 Surgery Bhavesh Grider MD 04/15/2017 Office visit Bhavesh Grider MD 11/26/2016 Office visit Kam Bullock APRN 10/22/2016 Office visit Kam Bullock APRN 08/29/2016 Office visit Kam Bullock SECURITY SPECIALIST 06/21/2016 Office visit Kam Bullock APRN 04/25/2016 Office visit Kam Bullock APRN 03/16/2016 Office visit Sidney Romero PA-C 02/08/2016 Office visit Kam Bullock APRN 12/27/2015 Office visit Kam Bullock SECURITY SPECIALIST 11/22/2015 Office visit Kam Bullock APRN 10/04/2015 Office visit Kam Bullock APRN 09/12/2015 Office visit Kam Bullock APRN 07/18/2015 Office visit Erica Cassidy SECURITY SPECIALIST 05/25/2015 Office visit Kam Bullock SECURITY SPECIALIST 01/04/2015 Office visit Erica Cassidy SECURITY SPECIALIST 12/27/2014 Office visit Kam Bullock SECURITY SPECIALIST 11/25/2014 Office visit Erica Cassidy SECURITY SPECIALIST 11/15/2014 Office visit Erica Cassidy SECURITY SPECIALIST 09/08/2014 Hospital Bhavesh Grider MD 08/29/2014 Office visit Erica Cassidy SECURITY SPECIALIST 08/29/2014 Voided Bhavesh Grider MD 08/10/2014 Office visit Erica Cassidy SECURITY SPECIALIST 03/08/2010 Surgery Bhavesh Grider MD 03/05/2010 Surgery Bhavesh Grider MD 03/02/2010 Voided Bhavesh Grider MD 01/09/2010 Office visit Hardeep Tsang DO 06/05/2009 Laboratory Adriana Stuart MD
--- OUTSIDE RECORDS SUMMARY | 2018-12-04 16:21 | XMS REPORT ---
Author Author Verenice Ellison [facility] Address [address] [place], [place] [address] Care Team Providers Care Supervisor Glycerin Name Role Phone Verenice Ellison PCP Allergies [...] daily before breakfast for 30 days vitamin B69-ctpuv acid 500-400 mcg oral tablet 08/29/2016 09/28/2016 [...] oral 05/04/2018 Daily biotin oral 05/04/2018 Daily zoqpyns-aurdcgaht-dihw oral 05/04/2018 Daily vitamin B complex oral [...] 05/25/2015 12:00 AM Depo-Medrol, Per 80 Mg [facility]#[address]-02 Reviewed 05/25/2015 12:00 AM Decadron, Per 1 Mg [facility]# [address]-97 Reviewed 09/12/2015 12:00 AM COMPLETE CBC W/AUTO [...] 11/15/2014 12:00 AM Decadron, Per 1 Mg [facility]# [address]-86 Reviewed 11/15/2014 12:00 AM Depo-Medrol, Per 80 Mg [facility]#[address]-37 Reviewed 11/17/2014 12:00 AM MRI LUMBAR SPINE [...] 2018 3:01PM Dyspepsia May 04 2018 3:01PM [place] exposure Oct 02 2018 9:47AM Pneumonia Oct 02 2018 9:47AM Hypothyroid Oct 02 2018 9:47AM Right shoulder pain Nov 13 2018 1:28PM Plantar fasciitis of left foot Nov 13 2018 1:28PM Obesity Nov 13 2018 1:28PM Depression Nov 13 2018 1:28PM Asthma Nov 13 2018 1:28PM Payers Insurance Name Company Name Plan Name Plan Number Policy Number Policy Group Number Start Date [facility] [id number] Saturday, 2018 [employer] [id number] N/A [employer] Assistance [employer] Tuesday, 2009 [employer] [place] [id number] Saturday, 2014 [employer] [place] [id number] Thursday, 2017 Medicare Part B Medicare Of [place] [id number] Saturday, 2018 [employer] [place] [id number] N/A Medicare Part B Medicare [facility] [id number] Saturday, 2018 History of Encounters Visit Date Visit Type Provider 11/13/2018 Office visit Verenice Ellison BANK CREDIT CARD COLLECTION CLERK 10/02/2018 Office visit Verenice Ellison BANK CREDIT CARD COLLECTION CLERK 05/07/2018 Surgery Bhavesh Grider MD 05/04/2018 Office visit Bhavesh Grider MD 04/28/2017 Office visit Bhavesh Grider MD 04/18/2017 Surgery Bhavesh Grider MD 04/15/2017 Office visit Bhavesh Grider MD 11/26/2016 Office visit Kam Bullock APRN 10/22/2016 Office visit Kam Bullock APRN 08/29/2016 Office visit Kam Bullock BANK CREDIT CARD COLLECTION CLERK 06/21/2016 Office visit Kam Bullock APRN 04/25/2016 Office visit Kam Bullock APRN 03/16/2016 Office visit Sidney Romero PA-C 02/08/2016 Office visit Kam Bullock APRN 12/27/2015 Office visit Kam Bullock BANK CREDIT CARD COLLECTION CLERK 11/22/2015 Office visit Kam Bullock APRN 10/04/2015 Office visit Kam Bullock APRN 09/12/2015 Office visit Kam Bullock APRN 07/18/2015 Office visit Erica Cassidy BANK CREDIT CARD COLLECTION CLERK 05/25/2015 Office visit Kam Bullock BANK CREDIT CARD COLLECTION CLERK 01/04/2015 Office visit Erica Cassidy BANK CREDIT CARD COLLECTION CLERK 12/27/2014 Office visit Kam Bullock BANK CREDIT CARD COLLECTION CLERK 11/25/2014 Office visit Erica Cassidy BANK CREDIT CARD COLLECTION CLERK 11/15/2014 Office visit Erica Cassidy BANK CREDIT CARD COLLECTION CLERK 09/08/2014 Hospital Bhavesh Grider MD 08/29/2014 Office visit Erica Cassidy BANK CREDIT CARD COLLECTION CLERK 08/29/2014 Voided Bhavesh Grider MD 08/10/2014 Office visit Erica Cassidy BANK CREDIT CARD COLLECTION CLERK 03/08/2010 Surgery Bhavesh Grider MD 03/05/2010 Surgery Bhavesh Grider MD 03/02/2010 Voided Bhavesh Grider MD 01/09/2010 Office visit Hardeep Tsang DO 06/05/2009 Laboratory Adriana Stuart MD
--- OUTSIDE RECORDS SUMMARY | 2018-12-04 16:22 | XMS REPORT ---
Author Author Verenice Ellison [facility] Address [address] [place], [place] [address] Care Team Providers Care Structural Iron Erector Name Role Phone Verenice Ellison PCP Allergies [...] daily before breakfast for 30 days vitamin J23-bxzqi acid 500-400 mcg oral tablet 08/29/2016 09/28/2016 [...] oral 05/04/2018 Daily biotin oral 05/04/2018 Daily bhimhen-wycusnrjw-dkwp oral 05/04/2018 Daily vitamin B complex oral [...] 05/25/2015 12:00 AM Depo-Medrol, Per 80 Mg [facility]#[address]-45 Reviewed 05/25/2015 12:00 AM Decadron, Per 1 Mg [facility]# [address]-74 Reviewed 09/12/2015 12:00 AM COMPLETE CBC W/AUTO [...] 11/15/2014 12:00 AM Decadron, Per 1 Mg [facility]# [address]-06 Reviewed 11/15/2014 12:00 AM Depo-Medrol, Per 80 Mg [facility]#[address]-14 Reviewed 11/17/2014 12:00 AM MRI LUMBAR SPINE [...] 2018 3:01PM Dyspepsia May 04 2018 3:01PM [place] exposure Oct 02 2018 9:47AM Pneumonia Oct 02 2018 9:47AM Hypothyroid Oct 02 2018 9:47AM Right shoulder pain Nov 13 2018 1:28PM Plantar fasciitis of left foot Nov 13 2018 1:28PM Obesity Nov 13 2018 1:28PM Depression Nov 13 2018 1:28PM Payers Insurance Name Company Name Plan Name Plan Number Policy Number Policy Group Number Start Date [facility] [id number] Saturday, 2018 Early Detection Works Early Detection Works [id number] N/A [employer] Financial Assistance [employer] Dc [place] Tuesday, 2009 BCBS [employer] [place] [id number] Saturday, 2014 BCBS [employer] [place] [id number] Thursday, 2017 Medicare Part B Medicare Of [place] [id number] Saturday, 2018 BCBS [employer] [place] [id number] N/A Medicare Part B Medicare Of [place] [id number] Saturday, 2018 History of Encounters Visit Date Visit Type Provider 11/13/2018 Office visit Verenice Ellison PATIENT SUPPORT PARTNER 10/02/2018 Office visit Verenice Ellison PATIENT SUPPORT PARTNER 05/07/2018 Surgery Bhavesh Grider MD 05/04/2018 Office visit Bhavesh Grider MD 04/28/2017 Office visit Bhavesh Grider MD 04/18/2017 Surgery Bhavesh Grider MD 04/15/2017 Office visit Bhavesh Grider MD 11/26/2016 Office visit Kam Bullock APRN 10/22/2016 Office visit Kam Bullock PATIENT SUPPORT PARTNER 08/29/2016 Office visit Kam Bullock PATIENT SUPPORT PARTNER 06/21/2016 Office visit Kam Bullock APRN 04/25/2016 Office visit Kam Bullock APRN 03/16/2016 Office visit Sidney Romero PA-C 02/08/2016 Office visit Kam Bullock APRN 12/27/2015 Office visit Kam Bullock APRN 11/22/2015 Office visit Kam Bullock APRN 10/04/2015 Office visit Kam Bullock APRN 09/12/2015 Office visit Kam Bullock APRN 07/18/2015 Office visit Erica Cassidy APRN 05/25/2015 Office visit Kam Bullock APRN 01/04/2015 Office visit Erica Cassidy PATIENT SUPPORT PARTNER 12/27/2014 Office visit Kam Bullock PATIENT SUPPORT PARTNER 11/25/2014 Office visit Erica Cassidy PATIENT SUPPORT PARTNER 11/15/2014 Office visit Erica Cassidy PATIENT SUPPORT PARTNER 09/08/2014 Hospital Bhavesh Grider MD 08/29/2014 Office visit Erica Cassidy PATIENT SUPPORT PARTNER 08/29/2014 Voided Bhavesh Grider MD 08/10/2014 Office visit Erica Cassidy PATIENT SUPPORT PARTNER 03/08/2010 Surgery Bhavesh Grider MD 03/05/2010 Surgery Bhavesh Grider MD 03/02/2010 Voided Bhavesh Grider MD 01/09/2010 Office visit Hardeep Tsang DO 06/05/2009 Laboratory Adriana Stuart MD
--- OUTSIDE RECORDS SUMMARY | 2018-12-04 16:23 | XMS REPORT ---
Author Author Verenice Ellison [facility] Address [address] [place], [place] [address] Care Team Providers Care Hr Intern Name Role Phone Verenice Ellison PCP Allergies [...] daily before breakfast for 30 days vitamin Y46-tqdxf acid 500-400 mcg oral tablet 08/29/2016 09/28/2016 [...] oral 05/04/2018 Daily biotin oral 05/04/2018 Daily hprvtsb-hzwkulldq-aufa oral 05/04/2018 Daily vitamin B complex oral [...] Per 80 Mg [facility]#[address]-71 Reviewed 05/25/2015 12:00 AM Decadron, Per 1 Mg [facility]# [address]-53 Reviewed 09/12/2015 12:00 AM COMPLETE CBC W/AUTO [...] 1 Mg [facility]# [address]-83 Reviewed 11/15/2014 12:00 AM Depo-Medrol, Per 80 Mg [facility]#[address]-20 Reviewed 11/17/2014 12:00 AM MRI LUMBAR SPINE [...] 2018 3:01PM Dyspepsia May 04 2018 3:01PM [place] exposure Oct 02 2018 9:47AM Pneumonia Oct 02 2018 9:47AM Hypothyroid Oct 02 2018 9:47AM Right shoulder pain Nov 13 2018 1:28PM Plantar fasciitis of left foot Nov 13 2018 1:28PM Obesity Nov 13 2018 1:28PM Depression Nov 13 2018 1:28PM Payers Insurance Name Company Name Plan Name Plan Number Policy Number Policy Group Number Start Date [facility] [id number] Saturday, 2018 Early Detection Works Early Detection Works [id number] N/A [employer] Financial Assistance [employer] Financial Dc Green Tuesday, 2009 BCBS [employer] [place] [id number] Saturday, 2014 BCBS [employer] [place] [id number] Thursday, 2017 Medicare Part B Medicare Of [place] [id number] Saturday, 2018 [employer]BS [employer] [place] [id number] N/A Medicare Part B Medicare Of [place] [id number] Saturday, 2018 History of Encounters Visit Date Visit Type Provider 11/13/2018 Office visit Verenice Ellison GLOBAL CLIMATE CHANGE ANALYST 10/02/2018 Office visit Verenice Ellison GLOBAL CLIMATE CHANGE ANALYST 05/07/2018 Surgery Bhavesh Grider MD 05/04/2018 Office visit Bhavesh Grider MD 04/28/2017 Office visit Bhavesh Grider MD 04/18/2017 Surgery Bhavesh Grider MD 04/15/2017 Office visit Bhavesh Grider MD 11/26/2016 Office visit Kam Bullock APRN 10/22/2016 Office visit Kam Bullock GLOBAL CLIMATE CHANGE ANALYST 08/29/2016 Office visit Kam Bullock GLOBAL CLIMATE CHANGE ANALYST 06/21/2016 Office visit Kam Bullock APRN 04/25/2016 [...] Bullock APRN 01/04/2015 Office visit Erica Cassidy GLOBAL CLIMATE CHANGE ANALYST 12/27/2014 Office visit Kam Bullock GLOBAL CLIMATE CHANGE ANALYST 11/25/2014 Office visit Erica Cassidy GLOBAL CLIMATE CHANGE ANALYST 11/15/2014 Office visit Erica Cassidy GLOBAL CLIMATE CHANGE ANALYST 09/08/2014 Hospital Bhavesh Grider MD 08/29/2014 Office visit Erica Cassidy GLOBAL CLIMATE CHANGE ANALYST 08/29/2014 Voided Bhavesh Grider MD 08/10/2014 Office visit Erica Cassidy GLOBAL CLIMATE CHANGE ANALYST 03/08/2010 Surgery Bhavesh Grider MD 03/05/2010 Surgery Bhavesh Grider MD 03/02/2010 Voided Bhavesh Grider MD 01/09/2010 Office visit Hardeep Tsang DO 06/05/2009 Laboratory Adriana Stuart MD
--- OUTSIDE RECORDS SUMMARY | 2018-12-04 16:24 | XMS REPORT ---
Author Author Verenice Ellison [facility] Address [address] [place], [place] [address] Care Team Providers Care Laundry Worker Name Role Phone Verenice Ellison PCP Allergies [...] daily before breakfast for 30 days vitamin U90-sgsuc acid 500-400 mcg oral tablet 08/29/2016 09/28/2016 [...] oral 05/04/2018 Daily biotin oral 05/04/2018 Daily lgbfkfa-wgvppjmde-vsej oral 05/04/2018 Daily vitamin B complex oral [...] 05/25/2015 12:00 AM Depo-Medrol, Per 80 Mg [facility]#[address]-52 Reviewed 05/25/2015 12:00 AM Decadron, Per 1 Mg [facility]# [address]-93 Reviewed 09/12/2015 12:00 AM COMPLETE CBC W/AUTO [...] 11/15/2014 12:00 AM Decadron, Per 1 Mg [facility]# [address]-41 Reviewed 11/15/2014 12:00 AM Depo-Medrol, Per 80 Mg [facility]#[address]-08 Reviewed 11/17/2014 12:00 AM MRI LUMBAR SPINE [...] 2018 3:01PM Dyspepsia May 04 2018 3:01PM [place] exposure Oct 02 2018 9:47AM Pneumonia Oct 02 2018 9:47AM Hypothyroid Oct 02 2018 9:47AM Right shoulder pain Nov 13 2018 1:28PM Plantar fasciitis of left foot Nov 13 2018 1:28PM Obesity Nov 13 2018 1:28PM Depression Nov 13 2018 1:28PM Payers Insurance Name Company Name Plan Name Plan Number Policy Number Policy Group Number Start Date [facility] [id number] Saturday, 2018 Early Detection Works Early Detection Works [id number] N/A [employer] Financial Assistance [employer] Dc [place] Tuesday, 2009 BCBS [employer] [place] [id number] Saturday, 2014 BCBS [employer] [place] [id number] Thursday, 2017 Medicare Part B Medicare Of [place] [id number] Saturday, 2018 BCBS [employer] [place] [id number] N/A Medicare Part B Medicare Of [place] [id number] Saturday, 2018 History of Encounters Visit Date Visit Type Provider 11/13/2018 Office visit Verenice Ellison DRUM BARKER OPERATOR 10/02/2018 Office visit Verenice Ellison DRUM BARKER OPERATOR 05/07/2018 Surgery Bhavesh Grider MD 05/04/2018 Office visit Bhavesh Grider MD 04/28/2017 Office visit Bhavesh Grider MD 04/18/2017 Surgery Bhavesh Grider MD 04/15/2017 Office visit Bhavesh Grider MD 11/26/2016 Office visit Kam Bullock APRN 10/22/2016 Office visit Kam Bullock DRUM BARKER OPERATOR 08/29/2016 Office visit Kam Bullock DRUM BARKER OPERATOR 06/21/2016 Office visit Kam Bullock APRN 04/25/2016 Office visit Kam Bullock APRN 03/16/2016 Office visit Sidney Romero PA-C 02/08/2016 Office visit Kam Bullock APRN 12/27/2015 Office visit Kam Bullock APRN 11/22/2015 Office visit Kam Bullock APRN 10/04/2015 Office visit Kam Bullock APRN 09/12/2015 Office visit Kam Blulock APRN 07/18/2015 Office visit Erica Cassidy APRN 05/25/2015 Office visit Kam Blulock APRN 01/04/2015 Office visit Erica Cassidy DRUM BARKER OPERATOR 12/27/2014 Office visit Kam Bullock DRUM BARKER OPERATOR 11/25/2014 Office visit Erica Cassidy DRUM BARKER OPERATOR 11/15/2014 Office visit Erica Cassidy DRUM BARKER OPERATOR 09/08/2014 Hospital Bhavesh Grider MD 08/29/2014 Office visit Erica Cassidy DRUM BARKER OPERATOR 08/29/2014 Voided Bhavesh Grider MD 08/10/2014 Office visit Erica Cassidy DRUM BARKER OPERATOR 03/08/2010 Surgery Bhavesh Grider MD 03/05/2010 Surgery Bhavesh Grider MD 03/02/2010 Voided Bhavesh Grider MD 01/09/2010 Office visit Hardeep Tsang DO 06/05/2009 Laboratory Adriana Stuart MD
--- OUTSIDE RECORDS SUMMARY | 2018-12-04 16:25 | XMS REPORT ---
Author Author Verenice Ellison [facility] Address [address] [place], [place] [address] Care Team Providers Care Contact Center Team Lead Name Role Phone Verenice Ellison PCP Allergies [...] daily before breakfast for 30 days vitamin T75-ekwqu acid 500-400 mcg oral tablet 08/29/2016 09/28/2016 [...] oral 05/04/2018 Daily biotin oral 05/04/2018 Daily pejoleq-ktyfzevrp-swqj oral 05/04/2018 Daily vitamin B complex oral [...] 12:00 AM Depo-Medrol, Per 80 Mg [facility]#[address]-49 Reviewed 05/25/2015 12:00 AM Decadron, Per 1 Mg [facility]# [address]-23 Reviewed 09/12/2015 12:00 AM COMPLETE CBC W/AUTO [...] 12:00 AM Decadron, Per 1 Mg [facility]# [address]-76 Reviewed 11/15/2014 12:00 AM Depo-Medrol, Per 80 Mg [facility]#[address]-60 Reviewed 11/17/2014 12:00 AM MRI LUMBAR SPINE [...] 2018 3:01PM Dyspepsia May 04 2018 3:01PM [place] exposure Oct 02 2018 9:47AM Pneumonia Oct 02 2018 9:47AM Hypothyroid Oct 02 2018 9:47AM Right shoulder pain Nov 13 2018 1:28PM Plantar fasciitis of left foot Nov 13 2018 1:28PM Obesity Nov 13 2018 1:28PM Depression Nov 13 2018 1:28PM Payers Insurance Name Company Name Plan Name Plan Number Policy Number Policy Group Number Start Date Medicare Part B Medicare Of [place] [id number] N/A BCBS Bcbs [employer] [place] [id number] N/A Early Detection Works Early Detection Works [id number] N/A [employer] Financial Assistance [employer] Financial Dc Green Tuesday, 2009 BCBS [employer] [place] [id number] Saturday, 2014 BCBS [employer] [place] [id number] Thursday, 2017 Medicare Part B Medicare Of [place] [id number] Saturday, 2018 History of Encounters Visit Date Visit Type Provider 11/13/2018 Office visit Verenice Ellison FIELD SUPERINTENDENT 10/02/2018 Office visit Verenice Ellison FIELD SUPERINTENDENT 05/07/2018 Surgery Bhavesh Grider MD 05/04/2018 Office visit Bhavesh Grider MD 04/28/2017 Office visit Bhavesh Grider MD 04/18/2017 Surgery Bhavesh Grider MD 04/15/2017 Office visit Bhavesh Grider MD 11/26/2016 Office visit Kam Bullock FIELD SUPERINTENDENT 10/22/2016 Office visit Kam Bullock FIELD SUPERINTENDENT 08/29/2016 Office visit Kam Bullock FIELD SUPERINTENDENT 06/21/2016 Office visit Kam Bullock FIELD SUPERINTENDENT 04/25/2016 Office visit Kam Bullock FIELD SUPERINTENDENT 03/16/2016 Office visit Sidney Romero PA-C 02/08/2016 Office visit Kam Bullock FIELD SUPERINTENDENT 12/27/2015 Office visit Kam Bullock FIELD SUPERINTENDENT 11/22/2015 Office visit Kam Bullock FIELD SUPERINTENDENT 10/04/2015 Office visit Kam Bullock APRN 09/12/2015 Office visit Kam Bullock FIELD SUPERINTENDENT 07/18/2015 Office visit Erica Cassidy FIELD SUPERINTENDENT 05/25/2015 Office visit Kam Bullock APRN 01/04/2015 Office visit Erica Cassidy FIELD SUPERINTENDENT 12/27/2014 Office visit Kam Bullock APRN 11/25/2014 Office visit Erica Cassidy FIELD SUPERINTENDENT 11/15/2014 Office visit Erica Cassidy FIELD SUPERINTENDENT 09/08/2014 Hospital Bhavesh Grider MD 08/29/2014 Office visit Erica Cassidy FIELD SUPERINTENDENT 08/29/2014 Voided Bhavesh Grider MD 08/10/2014 Office visit Erica Cassidy FIELD SUPERINTENDENT 03/08/2010 Surgery Bhavesh Grider MD 03/05/2010 Surgery Bhavesh Grider MD 03/02/2010 Voided Bhavesh Grider MD 01/09/2010 Office visit Hardeep Tsang DO 06/05/2009 Laboratory Adriana Stuart MD
--- OUTSIDE RECORDS SUMMARY | 2018-12-04 16:26 | XMS REPORT ---
Author Author Verenice Ellison Organization [facility] Address [address] [place], [place] [address] Care Team Providers Care Electrical Parts Reconditioner Name Role Phone Verenice Ellison PCP Allergies and Adverse Reactions Name Reaction Notes NO KNOWN DRUG ALLERGIES Plan of Treatment Planned Activity Comments Planned Date Planned Time Plan/Goal Screening mammography of both breasts 11/25/2014 12:00 [...] 4 times per day for 90 days Name Start Date Expiration Date SIG [...] daily before breakfast for 30 days vitamin L56-aazxp acid 500-400 mcg oral tablet 08/29/2016 09/28/2016 [...] oral 05/04/2018 Daily biotin oral 05/04/2018 Daily ktjmeiq-vxxorasij-ufkm oral 05/04/2018 Daily vitamin B complex oral tablet 05/04/2018 take 1 tablet by oral route daily Probiotic oral 05/04/2018 Daily Turmeric Curcumin 05/04/2018 Daily Problem List Description Status Onset Depression Active Chronic back pain Active Vital Signs Date Time BP-Sys(mm[Hg] BP-Jaleesa(mm[Hg]) HR(bpm) RR(rpm) Temp WT HT HC BMI BSA BMI Percentile O2 Sat(%) 10/02/2018 9:44:00 AM 110 mmHg 64 mmHg 61 bpm 18 rpm 98.8 F 230.5 lbs 66 in 37.2033 kg/m 2.2065 m 98 % 05/04/2018 3:01:00 PM 124 mmHg 76 mmHg 74 bpm 16 rpm 98.1 F 225 lbs 66 in 36.32 kg/m2 2.18 m2 98 % 04/28/2017 11:59:00 AM 102 mmHg [...] 05/25/2015 12:00 AM Depo-Medrol, Per 80 Mg [facility]#[address]-35 Reviewed 05/25/2015 12:00 AM Decadron, Per 1 Mg [facility]# [address]-39 Reviewed 09/12/2015 12:00 AM COMPLETE CBC W/AUTO [...] 12:00 AM COMPLETE CBC W/AUTO DIFF WBC Returned 10/02/2018 12:00 AM ASSAY THYROID STIM HORMONE Returned 10/02/2018 12:00 AM ASSAY OF FREE THYROXINE Returned 10/02/2018 12:00 AM JADA-MARQUEZ NUCLEAR ANTIGEN Returned 10/02/2018 12:00 AM JADA-MARQUEZ CAPSID VCA Returned 10/02/2018 12:00 AM ROUTINE VENIPUNCTURE Reviewed 01/18/2010 12:00 AM MAMMOGRAM SCREENING Reviewed [...] 11/15/2014 12:00 AM Decadron, Per 1 Mg [facility]# [address]-39 Reviewed 11/15/2014 12:00 AM Depo-Medrol, Per 80 Mg [facility]#[address]-66 Reviewed 11/17/2014 12:00 AM MRI LUMBAR SPINE [...] mg/dLTOT CHOL/HDL 2.4 LDL (CALC) 95.0 mg/dL History Of Immunizations Not available. History of [...] 2018 3:01PM Dyspepsia May 04 2018 3:01PM [place] exposure Oct 02 2018 9:47AM Pneumonia Oct 02 2018 9:47AM Hypothyroid Oct 02 2018 9:47AM Payers Insurance Name Company Name Plan Name Plan Number Policy Number Policy Group Number Start Date Medicare Part B Medicare Of [place] [id number] N/A BCBS Bcbs [facility] [id number] N/A Early Detection Works Early Detection Works [id number] N/A [employer] Financial Assistance [employer] Dc [place] Tuesday, 2009 BCBS Bcbs [facility] [id number] Saturday, 2014 BCBS Bcbs [facility] [id number] Thursday, 2017 History of Encounters Visit Date Visit Type Provider 10/02/2018 Office visit Verenice Ellison APRN 05/07/2018 Surgery Bhavesh Grider MD 05/04/2018 Office visit Bhavesh Grider MD 04/28/2017 Office visit Bhavesh Grider MD 04/18/2017 Surgery Bhavesh Grider MD 04/15/2017 Office visit Bhavesh Grider MD 11/26/2016 Office visit Kam Bullock APRN 10/22/2016 Office visit Kam Bullock APRN 08/29/2016 Office visit Kam Bullock APRN 06/21/2016 Office visit Kam Bullock APRN 04/25/2016 Office visit Kam Bullock APRN 03/16/2016 Office visit Sidney Romero PA-C 02/08/2016 Office visit Kam Bullock APRN 12/27/2015 Office visit Kam Bullock APRN 11/22/2015 Office visit Kam Bullock APRN 10/04/2015 Office visit Kam Bullock APRN 09/12/2015 Office visit Kam Bullock APRN 07/18/2015 Office visit Erica Cassidy PIGMENT WEIGHER 05/25/2015 Office visit Kam Bullock PIGMENT WEIGHER 01/04/2015 Office visit Erica Cassidy PIGMENT WEIGHER 12/27/2014 Office visit Kam Bullock PIGMENT WEIGHER 11/25/2014 Office visit Erica Cassidy PIGMENT WEIGHER 11/15/2014 Office visit Erica Cassidy PIGMENT WEIGHER 09/08/2014 Hospital Bhavesh Grider MD 08/29/2014 Office visit Erica Cassidy PIGMENT WEIGHER 08/29/2014 Voided Bhavesh Girder MD 08/10/2014 Office visit Erica Cassidy PIGMENT WEIGHER 03/08/2010 Surgery Bhavesh Grider MD 03/05/2010 Surgery Bhavesh Grider MD 03/02/2010 Voided Bhavesh Grider MD 01/09/2010 Office visit Hardeep Tsang DO 06/05/2009 Laboratory Adriana Stuart MD
--- OUTSIDE RECORDS SUMMARY | 2018-12-04 16:27 | XMS REPORT ---
Author Author Verenice Ellison Organization [facility] Address [address] [place], [place] [address] Care Team Providers Care Client Experience Administrator Name Role Phone Verenice Ellison PCP Allergies and Adverse Reactions Name Reaction Notes NO KNOWN DRUG ALLERGIES Plan of Treatment Planned Activity Comments Planned Date Planned Time Plan/Goal CBC W/ AUTO DIFF (RFLX MAN DIFF IF IND). 10/02/2018 12:00 AM TSH 10/02/2018 12:00 AM T4 FREE 10/02/2018 12:00 AM EBV comprehensive antibody panel 10/02/2018 12:00 AM EBV comprehensive antibody panel 10/02/2018 12:00 AM Screening mammography of both breasts [...] daily before breakfast for 30 days vitamin F91-ossdc acid 500-400 mcg oral tablet 08/29/2016 09/28/2016 [...] oral 05/04/2018 Daily biotin oral 05/04/2018 Daily ixtzdhn-uquxybupn-jmnc oral 05/04/2018 Daily vitamin B complex oral [...] 12:00 AM Depo-Medrol, Per 80 Mg [facility]#[address]-11 Reviewed 05/25/2015 12:00 AM Decadron, Per 1 Mg [facility]# [address]-78 Reviewed 09/12/2015 12:00 AM COMPLETE CBC W/AUTO [...] HEAD AND NECK Reviewed 10/02/2018 12:00 AM ROUTINE VENIPUNCTURE Reviewed 01/18/2010 [...] 12:00 AM Decadron, Per 1 Mg [facility]# [address]-92 Reviewed 11/15/2014 12:00 AM Depo-Medrol, Per 80 Mg [facility]#[address]-95 Reviewed 11/17/2014 12:00 AM MRI LUMBAR SPINE [...] 2018 3:01PM Dyspepsia May 04 2018 3:01PM [place] exposure Oct 02 2018 9:47AM Pneumonia Oct 02 2018 9:47AM Hypothyroid Oct 02 2018 9:47AM Payers Insurance Name Company Name Plan Name Plan Number Policy Number Policy Group Number Start Date Medicare Part B Medicare Of [place] [id number] N/A BCBS Bcbs Of [place] [id number] N/A Early Detection Works Early Detection Works [id number] N/A [employer] Financial Assistance [employer] Dc [place] Tuesday, 2009 BCBS Bcbs [facility] [id number] Saturday, 2014 BCBS Bcbs [employer] [place] [id number] Thursday, 2017 History of Encounters Visit Date [...] Bullock APRN 07/18/2015 Office visit Erica Cassidy PHP CONSULTANT 05/25/2015 Office visit Kam Bullock PHP CONSULTANT 01/04/2015 Office visit Erica Cassidy PHP CONSULTANT 12/27/2014 Office visit Kam Bullock PHP CONSULTANT 11/25/2014 Office visit Erica Cassidy PHP CONSULTANT 11/15/2014 Office visit Erica Cassidy PHP CONSULTANT 09/08/2014 Hospital Bhavesh Grider MD 08/29/2014 Office visit Erica Cassidy PHP CONSULTANT 08/29/2014 Voided Bhavesh Grider MD 08/10/2014 Office visit Erica Cassidy PHP CONSULTANT 03/08/2010 Surgery Bhavesh Grider MD 03/05/2010 Surgery Bhavesh Grider MD 03/02/2010 Voided Bhavesh Grider MD 01/09/2010 Office visit Hardeep Tsang DO 06/05/2009 Laboratory Adriana Stuart MD
--- OUTSIDE RECORDS SUMMARY | 2018-12-04 16:27 | XMS REPORT ---
Author Author Verenice Ellison Organization [facility] Address [address] [place], [place] [address] Care Team Providers Care It Admin Name Role Phone Verenice Ellison PCP Allergies and Adverse Reactions Name Reaction Notes NO KNOWN DRUG ALLERGIES Plan of Treatment Planned Activity Comments Planned Date Planned Time Plan/Goal EBV comprehensive antibody panel 10/02/2018 12:00 AM [...] daily before breakfast for 30 days vitamin Q59-fsmxh acid 500-400 mcg oral tablet 08/29/2016 09/28/2016 [...] oral 05/04/2018 Daily biotin oral 05/04/2018 Daily mxusogm-pjsqmcmfn-woch oral 05/04/2018 Daily vitamin B complex oral [...] 12:00 AM Depo-Medrol, Per 80 Mg [facility]#[address]-09 Reviewed 05/25/2015 12:00 AM Decadron, Per 1 Mg [facility]# [address]-18 Reviewed 09/12/2015 12:00 AM COMPLETE CBC W/AUTO [...] OF FREE THYROXINE Returned 10/02/2018 12:00 AM ROUTINE VENIPUNCTURE Reviewed [...] 12:00 AM Decadron, Per 1 Mg [facility]# [address]-07 Reviewed 11/15/2014 12:00 AM Depo-Medrol, Per 80 Mg [facility]#[address]-81 Reviewed 11/17/2014 12:00 AM MRI LUMBAR SPINE [...] 2018 3:01PM Dyspepsia May 04 2018 3:01PM [place] exposure Oct 02 2018 9:47AM Pneumonia Oct 02 2018 9:47AM Hypothyroid Oct 02 2018 9:47AM Payers Insurance Name Company Name Plan Name Plan Number Policy Number Policy Group Number Start Date Medicare Part B Medicare Of [place] [id number] N/A BCBS Bcbs Of [place] [id number] N/A Early Detection Works Early Detection Works [id number] N/A [employer] Financial Assistance [employer] Dc [place] Tuesday, 2009 BCBS Bcbs [facility] [id number] Saturday, 2014 BCBS Bcbs [facility] [id number] Thursday, 2017 History of Encounters Visit Date [...] Bullock APRN 07/18/2015 Office visit Erica Cassidy CHIEF DATA OFFICER 05/25/2015 Office visit Kam Bullock CHIEF DATA OFFICER 01/04/2015 Office visit Erica Cassidy CHIEF DATA OFFICER 12/27/2014 Office visit Kam Bullock CHIEF DATA OFFICER 11/25/2014 Office visit Erica Cassidy CHIEF DATA OFFICER 11/15/2014 Office visit Erica Cassidy CHIEF DATA OFFICER 09/08/2014 Hospital Bhavesh Grider MD 08/29/2014 Office visit Erica Cassidy CHIEF DATA OFFICER 08/29/2014 Voided Bhavesh Grider MD 08/10/2014 Office visit Erica Cassidy CHIEF DATA OFFICER 03/08/2010 Surgery Bhavesh Grider MD 03/05/2010 Surgery Bhavesh Grider MD 03/02/2010 Voided Bhavesh Grider MD 01/09/2010 Office visit Hardeep Tsang DO 06/05/2009 Laboratory Adriana Stuart MD
--- OUTSIDE RECORDS SUMMARY | 2018-12-04 16:28 | XMS REPORT ---
Author Author Verenice Ellison Organization [facility] Address [address] [place], [place] [id number] Care Team Providers Care Screener And Blender Operator Name Role Phone Verenice Ellison PCP Allergies [...] daily before breakfast for 30 days vitamin G49-gntbo acid 500-400 mcg oral tablet 08/29/2016 09/28/2016 [...] oral 05/04/2018 Daily biotin oral 05/04/2018 Daily dottrld-sakblbmne-mndn oral 05/04/2018 Daily vitamin B complex oral [...] 05/25/2015 12:00 AM Depo-Medrol, Per 80 Mg [facility]#[address]-77 Reviewed 05/25/2015 12:00 AM Decadron, Per 1 Mg [facility]# [address]-30 Reviewed 09/12/2015 12:00 AM COMPLETE CBC W/AUTO [...] US EXAM OF HEAD AND NECK Reviewed 01/18/2010 12:00 AM MAMMOGRAM SCREENING Reviewed [...] 11/15/2014 12:00 AM Decadron, Per 1 Mg [facility]# [address]-87 Reviewed 11/15/2014 12:00 AM Depo-Medrol, Per 80 Mg [facility]#[address]-19 Reviewed 11/17/2014 12:00 AM MRI LUMBAR SPINE [...] 2018 3:01PM Dyspepsia May 04 2018 3:01PM [place] exposure Oct 02 2018 9:47AM Pneumonia Oct 02 2018 9:47AM Hypothyroid Oct 02 2018 9:47AM Payers Insurance Name Company Name Plan Name Plan Number Policy Number Policy Group Number Start Date Medicare Part B [employer] [place] [id number] N/A BCBS Bcbs [facility] [id number] N/A Early Detection Works Early Detection Works [id number] N/A [employer] Financial Assistance [employer] Dc Green Tuesday, 2009 BCBS Bcbs [facility] [id number] Saturday, 2014 BCBS Bcbs [facility] [id number] Thursday, 2017 History of Encounters Visit Date [...] Bullock APRN 01/04/2015 Office visit Erica Cassidy SOLID FIBER PASTER OPERATOR 12/27/2014 Office visit Kam Bullock SOLID FIBER PASTER OPERATOR 11/25/2014 Office visit Erica Cassidy SOLID FIBER PASTER OPERATOR 11/15/2014 Office visit Erica Cassidy SOLID FIBER PASTER OPERATOR 09/08/2014 Hospital Bhavesh Grider MD 08/29/2014 Office visit Erica Cassidy SOLID FIBER PASTER OPERATOR 08/29/2014 Voided Bhavesh Grider MD 08/10/2014 Office visit Erica Cassidy SOLID FIBER PASTER OPERATOR 03/08/2010 Surgery Bhavesh Grider MD 03/05/2010 Surgery Bhavesh Grider MD 03/02/2010 Voided Bhavesh Grider MD 01/09/2010 Office visit Hardeep Tsang DO 06/05/2009 Laboratory Adriana Stuart MD
--- OUTSIDE RECORDS SUMMARY | 2018-12-04 16:29 | XMS REPORT ---
Author Author Bhavesh Grider [facility] Address [address] [place], [place] [id number] Care Team Providers Care Staff Internist Office Based Only Name Role Phone Bhavesh Grider PCP Allergies and Adverse Reactions Name Reaction [...] (40 mg) by oral route once daily Zoloft 50 mg oral tablet 11/03/2017 take 1/2 tablet by oral route once daily for 7 days and then increase to 1 tablet by oral route once daily sertraline 50 mg oral tablet 04/14/2018 TAKE ONE/HALF TABLET BY MOUTH ONCE DAILY FOR 7 DAYS AND THEN INCREASE TO 1 TABLET BY MOUTH ONCE DAILY Name Start Date Expiration Date SIG Comments [...] daily before breakfast for 30 days vitamin S37-vyeae acid 500-400 mcg oral tablet 08/29/2016 09/28/2016 [...] CAPSULE BY MOUTH THREE (3) TIMES DAILY Discontinued Name Start Date Discontinued Date SIG [...] oral 05/04/2018 Daily biotin oral 05/04/2018 Daily qwlqtdg-khsuggbac-pqcz oral 05/04/2018 Daily vitamin B complex oral tablet 05/04/2018 take 1 tablet by oral route daily Probiotic oral 05/04/2018 Daily Turmeric Curcumin 05/04/2018 Daily Problem List Description Status Onset Depression Active Chronic back pain Active Vital Signs Date Time BP-Sys(mm[Hg] BP-Jaleesa(mm[Hg]) HR(bpm) RR(rpm) Temp WT HT HC BMI BSA BMI Percentile O2 Sat(%) 05/04/2018 3:01:00 PM 124 mmHg 76 mmHg [...] History Name Description Comments Tobacco Never smoker History of Procedures Date Ordered Description Order Status 05/25/2015 12:00 AM THER/PROPH/DIAG INJ SC/IM Reviewed 05/25/2015 12:00 AM Depo-Medrol, Per 80 Mg [facility]#[address]-21 Reviewed 05/25/2015 12:00 AM Decadron, Per 1 Mg [facility]# [address]-32 Reviewed 09/12/2015 12:00 AM COMPLETE CBC W/AUTO [...] 12:00 AM Decadron, Per 1 Mg [facility]# [address]-09 Reviewed 11/15/2014 12:00 AM Depo-Medrol, Per 80 Mg [facility]#[address]-19 Reviewed 11/17/2014 12:00 AM MRI LUMBAR SPINE [...] 2018 3:01PM Dyspepsia May 04 2018 3:01PM Payers Insurance Name Company Name Plan Name Plan Number Policy Number Policy Group Number Start Date [facility] [id number] Thursday, 2017 Early Detection Works Early Detection Works [id number] N/A PRX Financial Assistance [employer] Dc Galindo Tuesday, 2009 [facility] [id number] Saturday, 2014 History of Encounters Visit Date Visit Type Provider 05/04/2018 Office visit Bhavesh Grider MD 04/28/2017 Office visit Bhavesh Grider MD 04/18/2017 Surgery Bhavesh Grider MD 04/15/2017 Office visit Bhavesh Grider MD 11/26/2016 Office visit Kam Bullock TEST DRILLER 10/22/2016 Office visit Kam Bullock TEST DRILLER 08/29/2016 Office visit Kam Bullock TEST DRILLER 06/21/2016 Office visit Kam Dengran TEST DRILLER 04/25/2016 Office visit Kam Degnran TEST DRILLER 03/16/2016 Office visit Sidney Romero PA-C 02/08/2016 Office visit Kam Bullock TEST DRILLER 12/27/2015 Office visit Kam Dengran TEST DRILLER 11/22/2015 Office visit Kam Dengran TEST DRILLER 10/04/2015 Office visit Kam Dengran TEST DRILLER 09/12/2015 Office visit Kam Dengran TEST DRILLER 07/18/2015 Office visit Erica Cassidy TEST DRILLER 05/25/2015 Office visit Kam Bullock TEST DRILLER 01/04/2015 Office visit Erica Cassidy TEST DRILLER 12/27/2014 Office visit Kam Bullock TEST DRILLER 11/25/2014 Office visit Erica Cassidy TEST DRILLER 11/15/2014 Office visit Erica Cassidy TEST DRILLER 09/08/2014 Hospital Bhavesh Grider MD 08/29/2014 Office visit Erica Cassidy TEST DRILLER 08/29/2014 Voided Bhavesh Grider MD 08/10/2014 Office visit Erica Cassidy TEST DRILLER 03/08/2010 Surgery Bhavesh Grider MD 03/05/2010 Surgery Bhavesh Grider MD 03/02/2010 Voided Bhavesh Grider MD 01/09/2010 Office visit Hardeep Tsang DO 06/05/2009 Laboratory Adriana Stuart MD
--- OUTSIDE RECORDS SUMMARY | 2018-12-04 16:30 | XMS REPORT ---
Author Author Kam Bullock [facility] Address [address] [place], [place] [address] Care Team Providers Care Media Consultant Name Role Phone Kam Bullock PCP Allergies and Adverse Reactions Name Reaction Notes NO KNOWN DRUG ALLERGIES Plan of Treatment Planned Activity Comments Planned Date Planned Time Plan/Goal MAMMOGRAM SCREENING 11/25/2014 12:00 AM BONE IMAGING WHOLE BODY 11/25/2014 12:00 AM Medications Active Name Start Date Estimated Completion Date SIG Comments cyclobenzaprine 10 mg oral tablet 07/18/2015 take 1 tablet (10 mg) by oral route 2 times per day as needed for muscle spasms/tension Zoloft 50 mg oral tablet 10/20/2015 take 1/2 tablet by oral route once daily for 7 days and then increase to 1 tablet by oral route once daily hydrocodone-acetaminophen 5-325 mg oral tablet 11/22/2015 take 1 tablet by oral route every 6 hours as needed for pain phentermine 37.5 mg oral capsule 11/22/2015 12/22/2015 take 1 capsule (37.5 mg) by oral route once daily before breakfast for 30 days colchicine 0.6 mg oral tablet 11/22/2015 take 2 tablets (1.2 mg) by oral route initially, then take 1 tab (0.6 mg ) ievery hour until pain is gone or develops diarrhea Zorvolex 35 mg oral capsule 11/22/2015 take 1 capsule (35 mg) by oral route 3 times per day Name Start Date Expiration Date SIG Comments [...] then 1 tab PO x 3 days Discontinued Name Start Date Discontinued Date SIG Comments cyclobenzaprine 10 mg oral tablet 01/04/2015 07/18/2015 take 1 tablet (10 mg) by oral route 3 times per day as needed Zorvolex 35 mg oral capsule 01/04/2015 07/18/2015 TAKE 1 CAPSULE BY MOUTH THREE TIMES DAILY Problem List Description Status Onset Depression Active Chronic back pain Active Vital Signs Date Time BP-Sys(mm[Hg] BP-Jaleesa(mm[Hg]) HR(bpm) RR(rpm) Temp WT HT HC BMI BSA BMI Percentile O2 Sat(%) 11/22/2015 1:40:00 PM 112 mmHg 76 mmHg 57 bpm 17 rpm 97.6 F 216 lbs 68 in 32.84 kg/m2 2.17 m2 97 % 10/04/2015 3:09:00 PM 130 mmHg 80 mmHg 61 bpm 16 rpm 96.9 F 227 lbs 68 in 34.5149 kg/m 2.2226 m 98 % 09/12/2015 8:35:00 AM 110 mmHg 70 mmHg 59 bpm 16 rpm 96.5 F 214 lbs 68 in 32.54 kg/m2 2.16 m2 99 % 07/18/2015 2:33:00 PM 117 mmHg [...] rpm 98.5 F 244 lbs 68 in 37.10 kg/m2 2.30 m2 Social History Name Description Comments Tobacco Never smoker History of Procedures Date Ordered Description Order Status 05/25/2015 12:00 AM THER/PROPH/DIAG INJ SC/IM Reviewed 05/25/2015 12:00 AM Depo-Medrol, Per 80 Mg [facility]#[address]-61 Reviewed 05/25/2015 12:00 AM Decadron, Per 1 Mg [facility]# [address]-75 Reviewed 09/12/2015 12:00 AM COMPLETE CBC W/AUTO DIFF WBC Returned 09/12/2015 12:00 AM COMPREHEN METABOLIC PANEL Returned 09/12/2015 12:00 AM LIPID PANEL Returned 10/04/2015 12:00 AM ASSAY OF FREE THYROXINE Returned 10/04/2015 12:00 AM ASSAY THYROID STIM HORMONE Returned 10/04/2015 12:00 AM VITAMIN B-12 Returned 10/04/2015 12:00 AM ASSAY OF FOLIC ACID SERUM Returned 10/04/2015 12:00 AM URNLS DIP STICK/TABLET RGNT AUTO W/O MICROSCOPY Returned 01/18/2010 12:00 AM MAMMOGRAM SCREENING Reviewed 08/10/2014 12:00 AM METABOLIC PANEL TOTAL CA Returned 08/10/2014 12:00 AM LIPID PANEL Returned 08/10/2014 12:00 AM General Surgery Consult Reviewed 08/29/2014 12:00 AM RADEX HIP UNILATERAL COMPLETE MINIMUM 2 VIEWS Returned 11/15/2014 12:00 AM RADEX SPINE THORACIC 2 VIEWS Returned 11/15/2014 12:00 AM RADEX SPINE LUMBOSACRAL 2/3 VIEWS Returned 11/15/2014 12:00 AM THER/PROPH/DIAG INJ SC/IM Reviewed 11/15/2014 12:00 AM Decadron, Per 1 Mg [facility]# [address]-65 Reviewed 11/15/2014 12:00 AM Depo-Medrol, Per 80 Mg [facility]#[address]-91 Reviewed 11/17/2014 12:00 AM MRI LUMBAR SPINE W/O DYE Returned 11/17/2014 12:00 AM MRI CHEST SPINE W/DYE Returned Results Summary Data and Description Results 09/12/2015 9:45 AM WBC 6.8 RBC 4.65 HGB 13.50 g/dLHCT 41.20 %MCV 89.0 fLMCH 29.0 pgMCHC 32.80 g/dLRDW CV 13.20 %MPV 9.0 fLPLT 210 %NEUT 63.50 %%LYMP 28.70 %%MONO 5.70 %%EOS 1.60 %%BASO 0.40 %#NEUT 4.33 #LYMP 1.96 #MONO 0.39 #EOS 0.11 #BASO 0.03 TRIGLYCERIDES 71.0 mg/dLCHOLESTEROL 182.0 mg/dLHDL 70.0 mg/dLLDL (CALC) 98.0 mg/dLGLUCOSE 94.0 mg/dLSODIUM 140.0 mmol/LPOTASSIUM 4.70 mmol/LCHLORIDE 108.0 mmol/LCO2 26.0 mmol/LBUN 15.0 mg/dLCREATININE 0.80 mg/dLSGOT/AST 20.0 IU/LSGPT/ALT 32.0 IU/LALK PHOS 75.0 IU/LTOTAL PROTEIN 6.60 g/dLALBUMIN 4.20 g/dLTOTAL BILI 0.30 mg/dLCALCIUM 9.30 mg/dLeGFR >60 mL/min/1.73m 10/04/2015 3:55 PM COLOR YELLOW APPEARANCE CLEAR SPEC GRAV 1.020 pH 6.0 PROTEIN NEGATIVE GLUCOSE NEGATIVE mg/dLKETONE NEGATIVE BILIRUBIN NEGATIVE BLOOD NEGATIVE NITRITE NEGATIVE LEUK SCREEN NEGATIVE TSH 2.740 uIU/mLVITAMIN B12 360.0 pg/mLFOLATE 11.10 ng/mL History Of Immunizations Not available. History of [...] counseling and surveillance Nov 22 2015 1:45PM Payers Insurance Name Company Name Plan Name Plan Number Policy Number Policy Group Number Start Date [id number] Saturday, 2014 Early Detection Works Early Detection Works [id number] N/A [employer] Financial Assistance [employer] D[employer] Tuesday, 2009 History of Encounters Visit Date Visit Type Provider 11/22/2015 Office visit Kam Bullock BUS DISPATCHER INTERSTATE 10/04/2015 Office visit Kam Bullock BUS DISPATCHER INTERSTATE 09/12/2015 Office visit Kam Bullock BUS DISPATCHER INTERSTATE 07/18/2015 Office visit Erica Cassidy BUS DISPATCHER INTERSTATE 05/25/2015 Office visit Kam Bullock BUS DISPATCHER INTERSTATE 01/04/2015 Office visit Erica Cassidy BUS DISPATCHER INTERSTATE 12/27/2014 Office visit Kam Bullock BUS DISPATCHER INTERSTATE 11/25/2014 Office visit Erica Cassidy BUS DISPATCHER INTERSTATE 11/15/2014 Office visit Erica Cassidy BUS DISPATCHER INTERSTATE 09/08/2014 [facility] Bhavesh Grider MD 08/29/2014 Office visit Erica Cassidy APRN 08/29/2014 Voided Bhavesh Grider MD 08/10/2014 Office visit Erica Cassidy APRN 03/08/2010 Surgery Bhavesh Grider MD 03/05/2010 Surgery Bhavesh Grider MD 03/02/2010 Voided hBavesh Grider MD 01/09/2010 Office visit Hardeep Tsang DO 06/05/2009 Laboratory Adriana Stuart MD
--- OUTSIDE RECORDS SUMMARY | 2018-12-04 16:30 | XMS REPORT ---
Author Author [facility] Organization [facility] Address [address] [place], [place] [address] Care Team Providers Care Black Ash Worker Name Role Phone PCP Unavailable Allergies and Adverse Reactions Name Reaction Notes NO KNOWN DRUG ALLERGIES Plan of Treatment Planned Activity Comments Planned Date Planned Time Plan/Goal X-RAY EXAM THORAC SPINE 2VWS 11/15/2014 12:00 AM X-RAY EXAM L-S SPINE 07/26 VWS 11/15/2014 12:00 AM Medications Active Name Start Date Estimated Completion Date SIG Comments Zorvolex oral capsule 35 mg 08/29/2014 take 1 capsule (35 mg) by oral route 3 times per day cyclobenzaprine oral tablet 10 mg 11/15/2014 take 1 tablet (10 mg) by oral route 3 times per day as needed Name Start Date Expiration Date SIG Comments prednisone oral tablet 20 mg 08/29/2014 09/07/2014 take 3 tabs PO x 3 days, then 2 tabs PO x 3 days, and then 1 tab PO x 3 days Problem List Not available. Vital Signs Date Time BP-Sys(mm[Hg] BP-Jaleesa(mm[Hg]) HR(bpm) RR(rpm) Temp WT HT HC BMI BSA BMI Percentile O2 Sat(%) 11/15/2014 3:54:00 PM 115 mmHg 69 mmHg [...] of Procedures Date Ordered Description Order Status 01/18/2010 12:00 AM MAMMOGRAM SCREENING Reviewed 08/10/2014 12:00 AM METABOLIC PANEL TOTAL CA Returned 08/10/2014 12:00 AM LIPID PANEL Returned Results Summary Not available. History Of Immunizations Not available. History of Past Illness Name Date of Onset Comments Screening Examination for Breast Cancer Jan 09 2010 1:57PM Abdominal pain, epigastric Mar 05 2010 2:30PM Routine adult health maintenance Aug 10 2014 3:48PM Ischemic heart disease screen Aug 10 2014 3:48PM Colon cancer screening Aug 10 2014 3:48PM Left hip pain Aug 29 2014 4:10PM Colon Cancer Screening Aug 29 2014 3:43PM Thoracic back pain Nov 15 2014 3:56PM Lumbar pain Nov 15 2014 3:56PM Payers Insurance Name Company Name Plan Name Plan Number Policy Number Policy Group Number Start Date Bcbs Bcbs [facility] [id number] Saturday, 2014 Early Detection Works Early Detection Works [id number] N/A [employer] Financial Assistance [employer] Dc Green Tuesday, 2009 History of Encounters Visit Date Visit Type Provider 11/15/2014 Office visit Erica Cassidy INDUSTRIAL ECOLOGIST 09/08/2014 [facility] Bhavesh Grider MD 08/29/2014 Voided Bhavesh Grider MD 08/29/2014 Office visit Erica Cassidy INDUSTRIAL ECOLOGIST 08/10/2014 Office visit Erica Cassidy INDUSTRIAL ECOLOGIST 03/08/2010 Surgery Bhavesh Grider MD 03/05/2010 Surgery Bhavesh Grider MD 03/02/2010 Voided Bhavesh Grider MD 01/09/2010 Office visit Hardeep Tsang DO 06/05/2009 Laboratory Adriana Stuart MD
--- OUTSIDE RECORDS SUMMARY | 2018-12-04 16:30 | XMS REPORT ---
Author Author Kam Bullock [facility] Address [address] [place], [place] [address] Care Team Providers Care Programmer Analyst Name Role Phone Kam Bullock PCP Allergies and Adverse Reactions Name Reaction Notes NO KNOWN DRUG ALLERGIES Plan of Treatment Planned Activity Comments Planned Date Planned Time Plan/Goal MAMMOGRAM SCREENING 11/25/2014 12:00 AM BONE IMAGING WHOLE BODY 11/25/2014 12:00 AM Medications Active Name Start Date Estimated Completion Date SIG Comments Zorvolex 35 mg oral capsule 08/29/2014 take 1 capsule (35 mg) by oral route 3 times per day cyclobenzaprine 10 mg oral tablet 01/04/2015 take 1 tablet (10 mg) by oral route 3 times per day as needed Zorvolex 35 mg oral capsule 01/04/2015 TAKE 1 CAPSULE BY MOUTH THREE TIMES DAILY Name Start Date Expiration Date SIG [...] HC BMI BSA BMI Percentile O2 Sat(%) 05/25/2015 3:39:00 PM 130 mmHg 68 mmHg [...] 12:00 AM Depo-Medrol, Per [address] [facility]#[address]-26 Reviewed 05/25/2015 12:00 AM Decadron, Per [address] [facility]# [address]-93 Reviewed 01/18/2010 12:00 AM MAMMOGRAM SCREENING Reviewed [...] 12:00 AM Decadron, Per [address] [facility]# [address]-65 Reviewed 11/15/2014 12:00 AM Depo-Medrol, Per [address] [facility]#[address]-61 Reviewed 11/17/2014 12:00 AM MRI LUMBAR SPINE W/O DYE Returned 11/17/2014 12:00 AM MRI CHEST SPINE W/DYE Returned Results Summary Not available. History Of [...] with right-sided sciatica May 25 2015 3:40PM Payers Insurance Name Company Name Plan Name Plan Number Policy Number Policy Group Number Start Date [facility] [id number] Saturday, 2014 Early Detection Works Early Detection Works [id number] N/A [employer] Financial Assistance [employer] Dc Green Tuesday, 2009 History of Encounters Visit Date Visit Type Provider 05/25/2015 Office visit Kam Bullock APRN 01/04/2015 Office visit Erica Cassidy APRN 12/27/2014 Office visit Kam Bullock APRN 11/25/2014 Office visit Erica Cassidy APRN 11/15/2014 Office visit Erica Cassidy APRN 09/08/2014 [facility] Bhavesh Grider MD 08/29/2014 Office visit Erica Cassidy APRN 08/29/2014 Voided Bhavesh Grider MD 08/10/2014 Office visit Erica Cassidy APRN 03/08/2010 Surgery Bhavesh Grider MD 03/05/2010 Surgery Bhavesh Grider MD 03/02/2010 Voided Bhavesh Grider MD 01/09/2010 Office visit Hardeep Tsang DO 06/05/2009 Laboratory Adriana Stuart MD
--- OUTSIDE RECORDS SUMMARY | 2018-12-04 16:30 | XMS REPORT ---
Author Author Erica Cassidy [facility] Address [address] [place], [place] [address] Care Team Providers Care Jar Filler Name Role Phone Erica Cassidy PCP Unavailable Allergies and Adverse Reactions Name Reaction Notes NO KNOWN DRUG ALLERGIES Plan of Treatment Planned Activity Comments Planned Date Planned Time Plan/Goal MAMMOGRAM SCREENING 11/25/2014 12:00 AM BONE IMAGING WHOLE BODY 11/25/2014 12:00 AM Medications Active Name Start Date Estimated Completion Date SIG Comments Zorvolex 35 mg oral capsule 07/18/2015 take 1 capsule (35 mg) by oral route 3 times per day cyclobenzaprine 10 mg oral tablet 07/18/2015 take 1 tablet (10 mg) by oral route 2 times per day as needed for muscle spasms/tension hydrocodone-acetaminophen 5-325 mg oral tablet 07/18/2015 take 1 tablet by oral route every 6 hours as needed for pain Zoloft 50 mg oral tablet 07/18/2015 take 1/2 tablet by oral route once daily for 7 days and then increase to 1 tablet by oral route once daily Name Start Date Expiration Date SIG Comments [...] BY MOUTH THREE TIMES DAILY Problem List Not available. Vital Signs Date Time BP-Sys(mm[Hg] BP-Jaleesa(mm[Hg]) HR(bpm) RR(rpm) Temp WT HT HC BMI BSA BMI Percentile O2 Sat(%) 07/18/2015 2:33:00 PM 117 mmHg 71 mmHg 80 bpm 20 rpm 96.8 F 220 lbs 99 % 05/25/2015 3:39:00 PM 130 mmHg 68 mmHg 69 bpm 16 rpm 96.7 F 213 lbs 98 % 01/04/2015 1:59:00 PM 115 mmHg 72 mmHg 63 bpm 20 rpm 98.2 F 216 lbs 68 in 32.84 kg/m2 2.17 m2 99 % 12/27/2014 2:25:00 PM 120 mmHg 70 mmHg 53 bpm 18 rpm 98.7 F 216 lbs 68 in 32.8424 kg/m 2.1681 m 98 % 11/25/2014 3:52:00 PM 102 mmHg 62 mmHg 65 bpm 20 rpm 97.4 F 219 lbs 68 in 33.30 kg/m2 2.18 m2 97 % 11/15/2014 3:54:00 PM 115 mmHg 69 mmHg 69 bpm 20 rpm 97.8 F 217.2 lbs 68 in 33.0248 kg/m 2.1741 m 99 % 08/29/2014 3:41:00 PM 104 mmHg 66 mmHg 67 bpm 20 rpm 96.6 F 221 lbs 68 in 33.60 kg/m2 2.19 m2 95 % 08/10/2014 3:44:00 PM 115 mmHg 61 mmHg 81 bpm 20 rpm 97.8 F 221 lbs 68 in 33.6026 kg/m 2.1931 m 96 % 03/05/2010 2:29:00 PM 100 mmHg [...] 05/25/2015 12:00 AM Depo-Medrol, Per 80 Mg [facility]#[address]-42 Reviewed 05/25/2015 12:00 AM Decadron, Per 1 Mg [facility]# [address]-49 Reviewed 01/18/2010 12:00 AM MAMMOGRAM SCREENING Reviewed [...] 11/15/2014 12:00 AM Decadron, Per 1 Mg [facility]# [address]-90 Reviewed 11/15/2014 12:00 AM Depo-Medrol, Per 80 Mg [facility]#[address]-74 Reviewed 11/17/2014 12:00 AM MRI LUMBAR SPINE [...] 2015 2:36PM Depression Jul 18 2015 2:36PM Payers Insurance Name Company Name Plan Name Plan Number Policy Number Policy Group Number Start Date BCBS [facility] [place] [id number] Saturday, 2014 Early Detection Works Early Detection Works [id number] N/A [employer] Financial Assistance [employer] [employer] Tuesday, 2009 History of Encounters Visit Date Visit Type Provider 07/18/2015 Office visit Erica Cassidy CASTING SORTER 05/25/2015 Office visit Kam Bullock CASTING SORTER 01/04/2015 Office visit Erica Cassidy CASTING SORTER 12/27/2014 Office visit Kam Bullock CASTING SORTER 11/25/2014 Office visit Erica Cassidy CASTING SORTER 11/15/2014 Office visit Erica Cassidy CASTING SORTER 09/08/2014 [facility] Bhavesh Grider MD 08/29/2014 Office visit Erica Cassidy CASTING SORTER 08/29/2014 Voided Bhavesh Grider MD 08/10/2014 Office visit Erica Cassidy APRN 03/08/2010 Surgery Bhavesh Grider MD 03/05/2010 Surgery Bhavesh Grider MD 03/02/2010 Voided Bhavesh Grider MD 01/09/2010 Office visit Hardeep Tsang DO 06/05/2009 Laboratory Adriana Stuart MD
--- OUTSIDE RECORDS SUMMARY | 2018-12-04 16:31 | XMS REPORT ---
Author Author Kam Bullock [facility] Address [address] [place], [place] [id number] Care Team Providers Care Director Field Services Name Role Phone Kam Bullock PCP Allergies [...] until pain is gone or develops diarrhea ProAir HFA 90 mcg/actuation inhalation HFA aerosol inhaler 03/16/2016 inhale 1 - 2 puffs (90 - 180 mcg) by inhalation route every 4-6 hours as needed Zorvolex 35 mg oral capsule 04/25/2016 take 1 capsule (35 mg) by oral route 3 times per day phentermine 37.5 mg oral capsule 06/21/2016 07/21/2016 take 1 capsule (37.5 mg) by oral route once daily before breakfast for 30 days Zoloft 50 mg oral tablet 06/21/2016 take 1/2 tablet by oral route once [...] then 1 tab PO x 3 days Augmentin 875-125 mg oral tablet 04/25/2016 05/05/2016 take 1 tablet by oral route every 12 hours for 10 days Discontinued Name Start Date Discontinued Date [...] HC BMI BSA BMI Percentile O2 Sat(%) 06/21/2016 10:50:00 AM 130 mmHg 80 mmHg [...] Depo-Medrol, Per 80 Mg [facility]#[address]-80 Reviewed 05/25/2015 12:00 AM Decadron, Per 1 Mg [facility]# [address]-91 Reviewed 09/12/2015 12:00 AM COMPLETE CBC W/AUTO [...] DIP STICK/TABLET RGNT AUTO W/O MICROSCOPY Returned 04/25/2016 12:00 AM COMPLETE CBC W/AUTO DIFF WBC Returned 04/25/2016 12:00 AM COMPREHEN METABOLIC PANEL Returned 04/25/2016 12:00 AM X-RAY EXAM OF ABDOMEN Returned 01/18/2010 12:00 AM MAMMOGRAM SCREENING Reviewed [...] Per 1 Mg [facility]# [address]-40 Reviewed 11/15/2014 12:00 AM Depo-Medrol, Per 80 Mg [facility]#[address]-87 Reviewed 11/17/2014 12:00 AM MRI LUMBAR SPINE W/O DYE Reviewed 11/17/2014 12:00 AM MRI CHEST SPINE W/DYE Reviewed Results Summary Data and Description Results 09/12/2015 [...] 0.14 #BASO 0.04 MANUAL DIFF NOT IND History Of Immunizations Not available. History of [...] major depressive disorder Jun 21 2016 10:52AM Payers Insurance Name Company Name Plan Name Plan Number Policy Number Policy Group Number Start Date BCBS [employer] [place] [id number] Saturday, 2014 Early Detection Works [employer] [id number] N/A [employer] Financial Assistance [employer] Tuesday, 2009 History of Encounters Visit Date Visit Type Provider 06/21/2016 Office visit Kam Bullock APRN 04/25/2016 Office visit Kam Bullock ALLERGY AND IMMUNOLOGY CHIEF 03/16/2016 Office visit Sidney Romero PA-C 02/08/2016 Office visit Kam Bullock APRN 12/27/2015 Office visit Kam Bullock APRN 11/22/2015 Office visit Kam Bullock APRN 10/04/2015 Office visit Kam Bullock APRN 09/12/2015 Office visit Kam Bullock APRN 07/18/2015 Office visit Erica Cassidy APRN 05/25/2015 Office visit Kam Bullock APRN 01/04/2015 Office visit Erica Cassidy APRN 12/27/2014 Office visit Kam Bullock ALLERGY AND IMMUNOLOGY CHIEF 11/25/2014 Office visit Erica Cassidy APRN 11/15/2014 Office visit Erica Cassidy APRN 09/08/2014 [facility] Bhavesh Grider MD 08/29/2014 Office visit Erica Cassidy APRN 08/29/2014 Voided Bhavesh Grider MD 08/10/2014 Office visit Erica Cassidy APRN 03/08/2010 Surgery Bhavesh Grider MD 03/05/2010 Surgery Bhavesh Grider MD 03/02/2010 Voided Bhavesh Grider MD 01/09/2010 Office visit Hardeep Tsang DO 06/05/2009 Laboratory Adriana Stuart MD
--- OUTSIDE RECORDS SUMMARY | 2018-12-04 16:31 | XMS REPORT ---
Author Author Kam Bullock [facility] Address [address] [place], [place] [address] Care Team Providers Care Baker Pastry Name Role Phone Kam Bullock PCP Allergies [...] every 6 hours as needed for pain Zorvolex 35 mg oral capsule 11/22/2015 take 1 capsule (35 mg) by oral route 3 times per day Zoloft 50 mg oral tablet 12/22/2015 take 1/2 tablet by oral route once daily for 7 days and then increase to 1 tablet by oral route once daily phentermine 37.5 mg oral capsule 12/27/2015 01/26/2016 take 1 capsule (37.5 mg) by oral route once daily before breakfast for 30 days colchicine 0.6 mg oral tablet 12/27/2015 take 2 tablets (1.2 mg) by oral route initially, then take 1 tab (0.6 mg ) ievery hour until pain is gone or develops diarrhea Name Start Date Expiration Date SIG Comments [...] HC BMI BSA BMI Percentile O2 Sat(%) 12/27/2015 10:49:00 AM 128 mmHg 74 mmHg [...] 05/25/2015 12:00 AM Depo-Medrol, Per 80 Mg [facility]#[address]-11 Reviewed 05/25/2015 12:00 AM Decadron, Per 1 Mg [facility]# [address]-08 Reviewed 09/12/2015 12:00 AM COMPLETE CBC W/AUTO [...] 11/15/2014 12:00 AM Decadron, Per 1 Mg [facility]# [address]-42 Reviewed 11/15/2014 12:00 AM Depo-Medrol, Per 80 Mg [facility]#[address]-19 Reviewed 11/17/2014 12:00 AM MRI LUMBAR SPINE [...] 10:50AM BMI 31.0-31.9,adult Dec 27 2015 10:50AM Payers Insurance Name Company Name Plan Name Plan Number Policy Number Policy Group Number [id number], 2014 Early Detection Works Early [employer] [id number] N/A [employer] Financial Assistance [employer] Tuesday, 2009 History of Encounters Visit Date Visit Type Provider 12/27/2015 Office visit Kam Bullock APRN 11/22/2015 Office visit Kam Bullock APRN 10/04/2015 Office visit Kam Bullock MERCHANDISING STOCK ASSOCIATE 09/12/2015 Office visit Kam Bullock MERCHANDISING STOCK ASSOCIATE 07/18/2015 Office visit Erica Cassidy MERCHANDISING STOCK ASSOCIATE 05/25/2015 Office visit Kam Bullock MERCHANDISING STOCK ASSOCIATE 01/04/2015 Office visit Erica Cassidy MERCHANDISING STOCK ASSOCIATE 12/27/2014 Office visit Kam Bullock MERCHANDISING STOCK ASSOCIATE 11/25/2014 Office visit Erica Cassidy MERCHANDISING STOCK ASSOCIATE 11/15/2014 Office visit Erica Cassidy MERCHANDISING STOCK ASSOCIATE 09/08/2014 Hospital Bhavesh Grider MD 08/29/2014 Office visit Erica Cassidy MERCHANDISING STOCK ASSOCIATE 08/29/2014 Voided Bhavesh Grider MD 08/10/2014 Office visit Erica Cassidy MERCHANDISING STOCK ASSOCIATE 03/08/2010 Surgery Bhavesh Grider MD 03/05/2010 Surgery Bhavesh Grider MD 03/02/2010 Voided Bhavesh Grider MD 01/09/2010 Office visit Hardeep Tsang DO 06/05/2009 Laboratory Adriana Stuart MD
--- OUTSIDE RECORDS SUMMARY | 2018-12-04 16:32 | XMS REPORT ---
Author Author Sidney Romero Organization [facility] Address [address] [place], [place] [id number] Care Team Providers Care Runner Out Name Role Phone Sidney Romero PCP Unavailable Allergies and Adverse Reactions Name [...] 1 tablet by oral route once daily colchicine 0.6 mg oral tablet 12/27/2015 take 2 tablets (1.2 mg) by oral route initially, then take 1 tab (0.6 mg ) ievery hour until pain is gone or develops diarrhea Augmentin 875-125 mg oral tablet 03/16/2016 03/26/2016 take 1 tablet by oral route every 12 hours for 10 days ProAir HFA 90 mcg/actuation inhalation HFA aerosol inhaler 03/16/2016 inhale 1 - 2 puffs (90 - 180 mcg) by inhalation route every 4-6 hours as needed Name Start Date Expiration Date [...] then 1 tab PO x 3 days phentermine 37.5 mg oral capsule 02/08/2016 03/09/2016 take 1 capsule (37.5 mg) by oral route once daily before breakfast for 30 days Discontinued Name Start Date Discontinued Date [...] HC BMI BSA BMI Percentile O2 Sat(%) 03/16/2016 10:16:00 AM 118 mmHg 70 mmHg [...] F 216 lbs 68 in 32.8424 kg/m 2.17 m2 99 % 12/27/2014 2:25:00 PM 120 mmHg 70 mmHg 53 bpm 18 rpm 98.7 F 216 lbs 68 in 32.84 kg/m2 2.1681 m 98 % 11/25/2014 3:52:00 PM 102 mmHg 62 mmHg 65 bpm 20 rpm 97.4 F 219 lbs 68 in 33.2985 kg/m 2.18 m2 97 % 11/15/2014 3:54:00 PM 115 mmHg 69 mmHg 69 bpm 20 rpm 97.8 F 217.2 lbs 68 in 33.02 kg/m2 2.1741 m 99 % 08/29/2014 3:41:00 PM 104 mmHg 66 mmHg 67 bpm 20 rpm 96.6 F 221 lbs 68 in 33.6026 kg/m 2.19 m2 95 % 08/10/2014 3:44:00 PM 115 mmHg 61 mmHg 81 bpm 20 rpm 97.8 F 221 lbs 68 in 33.60 kg/m2 2.1931 m 96 % 03/05/2010 2:29:00 PM 100 mmHg 60 mmHg 64 bpm 18 rpm 97.3 F 243 lbs 01/09/2010 1:54:00 PM 96 mmHg 58 mmHg 88 bpm 18 rpm 98.5 F 244 lbs 68 in 37.10 kg/m2 2.3044 m Social History Name Description Comments Tobacco Never smoker History of Procedures Date Ordered Description Order Status 05/25/2015 12:00 AM THER/PROPH/DIAG INJ SC/IM Reviewed 05/25/2015 12:00 AM Depo-Medrol, Per 80 Mg [facility]#[address]-16 Reviewed 05/25/2015 12:00 AM Decadron, Per 1 Mg [facility]# [address]-94 Reviewed 09/12/2015 12:00 AM COMPLETE CBC W/AUTO [...] 11/15/2014 12:00 AM Decadron, Per 1 Mg [facility]# [address]-26 Reviewed 11/15/2014 12:00 AM Depo-Medrol, Per 80 Mg [facility]#[address]-91 Reviewed 11/17/2014 12:00 AM MRI LUMBAR SPINE [...] 2016 10:19AM Fatigue Mar 16 2016 10:19AM Payers Insurance Name Company Name Plan Name Plan Number Policy Number Policy Group Number Start Date BCBS [employer] [place] [id number] Saturday, 2014 Early Detection Works Early [employer] [id number] N/A [employer] Financial Assistance [employer] Tuesday, 2009 History of Encounters Visit Date Visit Type Provider 03/16/2016 Office visit Sidney Romero PA-C 02/08/2016 Office visit Kam Bullock ENGAGEMENT EXECUTIVE 12/27/2015 Office visit Kam Bullock ENGAGEMENT EXECUTIVE 11/22/2015 Office visit Kam Blulock ENGAGEMENT EXECUTIVE 10/04/2015 Office visit Kam Bullock ENGAGEMENT EXECUTIVE 09/12/2015 Office visit Kam Bullock ENGAGEMENT EXECUTIVE 07/18/2015 Office visit Erica Cassidy ENGAGEMENT EXECUTIVE 05/25/2015 Office visit Kam Bullock APRN 01/04/2015 Office visit Erica Cassidy ENGAGEMENT EXECUTIVE 12/27/2014 Office visit Kam Bullock ENGAGEMENT EXECUTIVE 11/25/2014 Office visit Erica Cassidy ENGAGEMENT EXECUTIVE 11/15/2014 Office visit Erica Cassidy ENGAGEMENT EXECUTIVE 09/08/2014 Hospital Bhavesh Grider MD 08/29/2014 Office visit Erica Cassidy ENGAGEMENT EXECUTIVE 08/29/2014 Voided Bhavesh Grider MD 08/10/2014 Office visit Erica Cassidy ENGAGEMENT EXECUTIVE 03/08/2010 Surgery Bhavesh Grider MD 03/05/2010 Surgery Bhavesh Grider MD 03/02/2010 Voided Bhavesh Grider MD 01/09/2010 Office visit Hardeep Tsang DO 06/05/2009 Laboratory Adriana Stuart MD
--- OUTSIDE RECORDS SUMMARY | 2018-12-04 16:33 | XMS REPORT ---
Author Author Sidney Romero [facility] Address [address] [place], [place] [address] Care Team Providers Care Pipe Puller Name Role Phone Sidney Romero PCP Unavailable [...] once daily before breakfast for 30 days Augmentin 875-125 mg oral tablet 03/16/2016 03/26/2016 [...] Depo-Medrol, Per 80 Mg [facility]#[address]-59 Reviewed 05/25/2015 12:00 AM Decadron, Per 1 Mg [facility]# [address]-39 Reviewed 09/12/2015 12:00 AM COMPLETE CBC W/AUTO [...] Decadron, Per 1 Mg [facility]# [address]-04 Reviewed 11/15/2014 12:00 AM Depo-Medrol, Per 80 Mg [facility]#[address]-89 Reviewed 11/17/2014 12:00 AM MRI LUMBAR SPINE [...] for breast cancer Apr 03 2016 3:23PM Payers Insurance Name Company Name Plan Name Plan Number Policy Number Policy Group Number Start Date BCBS [employer] [place] [id number] Saturday, 2014 Early Detection Works Early Detection Works [id number] N/A [employer] Financial Assistance [employer] Tuesday, 2009 History of Encounters Visit Date Visit Type Provider 03/16/2016 Office visit Sidney Romero PA-C 02/08/2016 Office visit Kam Bullock BIOINFORMATICS SCIENTIST 12/27/2015 Office visit Kam Bullock BIOINFORMATICS SCIENTIST 11/22/2015 Office visit Kam Bullock BIOINFORMATICS SCIENTIST 10/04/2015 Office visit Kam Bullock BIOINFORMATICS SCIENTIST 09/12/2015 Office visit Kam Bullock BIOINFORMATICS SCIENTIST 07/18/2015 Office visit Erica Cassidy BIOINFORMATICS SCIENTIST 05/25/2015 Office visit Kam Bullock BIOINFORMATICS SCIENTIST 01/04/2015 Office visit Erica Cassidy BIOINFORMATICS SCIENTIST 12/27/2014 Office visit Kam Bullock BIOINFORMATICS SCIENTIST 11/25/2014 Office visit Erica Cassidy BIOINFORMATICS SCIENTIST 11/15/2014 Office visit Erica Cassidy BIOINFORMATICS SCIENTIST 09/08/2014 Hospital Bhavesh Grider MD 08/29/2014 Office visit Erica Cassidy BIOINFORMATICS SCIENTIST 08/29/2014 Voided Bhavesh Grider MD 08/10/2014 Office visit Erica Cassidy BIOINFORMATICS SCIENTIST 03/08/2010 Surgery Bhavesh Grider MD 03/05/2010 Surgery Bhavesh Grider MD 03/02/2010 Voided Bhavesh Grider MD 01/09/2010 Office visit Hardeep Tsang DO 06/05/2009 Laboratory Adriana Sutart MD
--- OUTSIDE RECORDS SUMMARY | 2018-12-04 16:33 | XMS REPORT ---
Author Author Kam Bullock [facility] Address [address] [place], [place] [address] Care Team Providers Care Photographic Supervisor Name Role Phone Kam Bullock PCP Kam Bullock PreferredProvider Allergies and Adverse Reactions Name Reaction Notes NO KNOWN DRUG ALLERGIES Plan of Treatment Planned Activity Comments Planned Date Planned Time Plan/Goal Screening mammography of both breasts 11/25/2014 12:00 AM Bone and/or joint imaging; whole body 11/25/2014 12:00 AM Medications Active Name Start Date Estimated Completion Date SIG Comments ProAir HFA 90 mcg/actuation inhalation HFA aerosol inhaler 03/16/2016 inhale 1 - 2 puffs (90 - 180 mcg) by inhalation route every 4-6 hours as needed Zorvolex 35 mg oral capsule 04/25/2016 take 1 capsule (35 mg) by oral route 3 times per day Zoloft 50 mg oral tablet 06/21/2016 take 1/2 tablet by oral route once daily for 7 days and then increase to 1 tablet by oral route once daily vitamin G66-sdgrv acid 500-400 mcg oral tablet 08/29/2016 09/28/2016 take 1 tablet by oral route daily for 30 days phentermine 37.5 mg oral tablet 08/29/2016 09/28/2016 take 1 tablet (37.5 mg) by oral route once daily before breakfast for 30 days Name Start Date Expiration [...] HC BMI BSA BMI Percentile O2 Sat(%) 08/29/2016 3:26:00 PM 120 mmHg 70 mmHg 56 bpm 16 rpm 97.6 F 210 lbs 67 in 32.89 kg/m2 2.12 m2 96 % 06/21/2016 10:50:00 AM 130 mmHg 80 mmHg 60 bpm 16 rpm 96.7 F 207 lbs 66 in 33.4103 kg/m 2.091 m 98 % 04/25/2016 4:07:00 PM 130 mmHg 72 mmHg 72 bpm 18 rpm 97 F 205 lbs 67 in 32.11 kg/m2 2.10 m2 97 % 03/16/2016 10:16:00 AM 118 mmHg 70 mmHg 67 bpm 18 rpm 97.3 F 205 lbs 67 in 32.1072 kg/m 2.0966 m 100 % 02/08/2016 3:43:00 PM 110 mmHg 66 mmHg 80 bpm 18 rpm 98.5 F 208 lbs 68 in 31.63 kg/m2 2.13 m2 99 % 12/27/2015 10:49:00 AM 128 mmHg 74 mmHg 61 bpm 18 rpm 96.3 F 207.125 lbs 68 in 31.4929 kg/m 2.1231 m 99 % 11/22/2015 1:40:00 PM 112 mmHg [...] 05/25/2015 12:00 AM Depo-Medrol, Per [address] [facility]#[address]-34 Reviewed 05/25/2015 12:00 AM Decadron, Per [address] [facility]# [address]-41 Reviewed 09/12/2015 12:00 AM COMPLETE CBC W/AUTO [...] 09/02/2016 12:00 AM MAMMOGRAPHY SCREENING, DIGITAL Reviewed 01/18/2010 12:00 AM MAMMOGRAM SCREENING Reviewed [...] 11/15/2014 12:00 AM Decadron, Per [address] [facility]# [address]-77 Reviewed 11/15/2014 12:00 AM Depo-Medrol, Per [address] [facility]#[address]-33 Reviewed 11/17/2014 12:00 AM MRI LUMBAR SPINE [...] Annual physical exam Aug 29 2016 3:28PM Payers Insurance Name Company Name Plan Name Plan Number Policy Number Policy Group Number [facility] Date [id number] Saturday, 2014 Early Detection Works Early Detection Works [id number] N/A [employer] Financial Assistance [employer] Tuesday, 2009 History of Encounters Visit Date Visit Type Provider 08/29/2016 Office visit Kam Bullock APRN 06/21/2016 [...] Bullock APRN 01/04/2015 Office visit Erica Cassidy OPTOMECHANICAL TECHNICIAN 12/27/2014 Office visit Kam Bullock OPTOMECHANICAL TECHNICIAN 11/25/2014 Office visit Erica Cassidy OPTOMECHANICAL TECHNICIAN 11/15/2014 Office visit Erica Cassidy OPTOMECHANICAL TECHNICIAN 09/08/2014 Hospital Bhavesh Grider MD 08/29/2014 Office visit Erica Cassidy OPTOMECHANICAL TECHNICIAN 08/29/2014 Voided Bhavesh Grider MD 08/10/2014 Office visit Erica Cassidy OPTOMECHANICAL TECHNICIAN 03/08/2010 Surgery Bhavesh Grider MD 03/05/2010 Surgery Bhavesh Grider MD 03/02/2010 Voided Bhavesh Grider MD 01/09/2010 Office visit Hardeep Tsang DO 06/05/2009 Laboratory Adriana Stuart MD
--- OUTSIDE RECORDS SUMMARY | 2018-12-04 16:34 | XMS REPORT ---
Author Author Kam Bullock [facility] Address [address] [place], [place] [address] Care Team Providers Care Jig And Fixture Builder Name Role Phone Kam Bullock PCP Allergies [...] muscle spasms/tension Zoloft 50 mg oral tablet 07/18/2015 take 1/2 tablet by oral route once daily for 7 days and then increase to 1 tablet by oral route once daily hydrocodone-acetaminophen 5-325 mg oral tablet 09/12/2015 take 1 tablet by oral route every 6 hours as needed for pain Name Start Date Expiration Date SIG Comments [...] HC BMI BSA BMI Percentile O2 Sat(%) 09/12/2015 8:35:00 AM 110 mmHg 70 mmHg [...] 12:00 AM Depo-Medrol, Per 80 Mg [facility]#[address]-71 Reviewed 05/25/2015 12:00 AM Decadron, Per 1 Mg [facility]# [address]-66 Reviewed 09/12/2015 12:00 AM COMPLETE CBC W/AUTO DIFF WBC Returned 09/12/2015 12:00 AM COMPREHEN METABOLIC PANEL Returned 09/12/2015 12:00 AM LIPID PANEL Returned 01/18/2010 12:00 AM MAMMOGRAM SCREENING Reviewed [...] 12:00 AM Decadron, Per 1 Mg [facility]# [address]-49 Reviewed 11/15/2014 12:00 AM Depo-Medrol, Per 80 Mg [facility]#[address]-57 Reviewed 11/17/2014 12:00 AM MRI LUMBAR SPINE [...] BILI 0.30 mg/dLCALCIUM 9.30 mg/dLeGFR >60 mL/min/1.73m History Of Immunizations Not available. History of [...] Annual physical exam Sep 12 2015 8:37AM Payers Insurance Name Company Name Plan Name Plan Number Policy Number Policy Group Number Start Date [facility] [id number] Saturday, 2014 Early Detection Works Early Detection Works [id number] N/A [employer] Financial Assistance [employer] Tuesday, June 23, 2009 History of Encounters Visit Date Visit Type Provider 09/12/2015 Office visit Kam Bullock CLERICAL SUPPORT SPECIALIST 07/18/2015 Office visit Erica Cassidy CLERICAL SUPPORT SPECIALIST 05/25/2015 Office visit Kam Bullock CLERICAL SUPPORT SPECIALIST 01/04/2015 Office visit Erica Cassidy CLERICAL SUPPORT SPECIALIST 12/27/2014 Office visit Kam Bullock CLERICAL SUPPORT SPECIALIST 11/25/2014 Office visit Erica Cassidy CLERICAL SUPPORT SPECIALIST 11/15/2014 Office visit Erica Cassidy CLERICAL SUPPORT SPECIALIST 09/08/2014 Hospital Bhavesh Grider MD 08/29/2014 Office visit Erica Cassidy CLERICAL SUPPORT SPECIALIST 08/29/2014 Voided Bhavesh Grider MD 08/10/2014 Office visit Erica Cassidy CLERICAL SUPPORT SPECIALIST 03/08/2010 Surgery Bhavesh Grider MD 03/05/2010 Surgery Bhavesh Grider MD 03/02/2010 Voided Bhavesh Grider MD 01/09/2010 Office visit Hardeep Tsang DO 06/05/2009 Laboratory Adriana Stuart MD
--- OUTSIDE RECORDS SUMMARY | 2018-12-04 16:35 | XMS REPORT ---
Author Author Sidney Romero Organization [facility] Address [address] [place], [place] [address] Care Team Providers Care Specialty Cook Name Role Phone Sidney Romero PCP Unavailable [...] 05/25/2015 12:00 AM Depo-Medrol, Per [address] [facility]#[address]-84 Reviewed 05/25/2015 12:00 AM Decadron, Per [address] [facility]# [address]-20 Reviewed 09/12/2015 12:00 AM COMPLETE CBC W/AUTO [...] 11/15/2014 12:00 AM Decadron, Per [address] [facility]# [address]-31 Reviewed 11/15/2014 12:00 AM Depo-Medrol, Per [address] [facility]#[address]-17 Reviewed 11/17/2014 12:00 AM MRI LUMBAR SPINE [...] Group Number Start Date BCBS [employer] [place] [id number] Saturday, 2014 Early Detection Works Early Detection Works [id number] N/A [employer] Financial Assistance [employer] Tuesday, 2009 History of Encounters Visit Date Visit Type Provider 03/16/2016 Office visit Sidney Romero PA-C 02/08/2016 Office visit Kam Bullock DRY STARCH OPERATOR 12/27/2015 Office visit Kam Bullock DRY STARCH OPERATOR 11/22/2015 Office visit Kam Bullock DRY STARCH OPERATOR 10/04/2015 Office visit Kam Bullock DRY STARCH OPERATOR 09/12/2015 Office visit Kam Bullock DRY STARCH OPERATOR 07/18/2015 Office visit Erica Cassidy DRY STARCH OPERATOR 05/25/2015 Office visit Kam Bullock APRN 01/04/2015 Office visit Erica Cassidy DRY STARCH OPERATOR 12/27/2014 Office visit Kam Bullock DRY STARCH OPERATOR 11/25/2014 Office visit Erica Cassidy DRY STARCH OPERATOR 11/15/2014 Office visit Erica Cassidy DRY STARCH OPERATOR 09/08/2014 Hospital Bhavesh Grider MD 08/29/2014 Office visit Erica Cassidy DRY STARCH OPERATOR 08/29/2014 Voided Bhavesh Grider MD 08/10/2014 Office visit Erica Cassidy DRY STARCH OPERATOR 03/08/2010 Surgery Bhavesh Grider MD 03/05/2010 Surgery Bhavesh Grider MD 03/02/2010 Voided Bhavesh Grider MD 01/09/2010 Office visit Hardeep Tsang DO 06/05/2009 Laboratory Adriana Stuart MD
--- OUTSIDE RECORDS SUMMARY | 2018-12-04 16:35 | XMS REPORT ---
Author Author Kam Bullock [facility] Address [address] [place], [place] [address] Care Team Providers Care Pepper Picker Name Role Phone Kam Bullock PCP Kam Bullock PreferredProvider Allergies and Adverse Reactions Name Reaction Notes NO KNOWN DRUG ALLERGIES Plan of Treatment Planned Activity Comments Planned Date Planned Time Plan/Goal US SOFT TISSUES HEAD AND NECK 11/26/2016 12:00 AM Screening mammography of both breasts 11/25/2014 12:00 AM Bone and/or joint imaging; whole body 11/25/2014 12:00 AM Medications Active Name Start Date Estimated Completion Date SIG Comments Zoloft 50 mg oral tablet 06/21/2016 take 1/2 tablet by oral route once daily for 7 days and then increase to 1 tablet by oral route once daily Contrave 8-90 mg oral tablet extended release 10/22/2016 01/20/2017 take 2 tablets by oral route 2 times per day in the morning and evening for 30 days Zorvolex 35 mg oral capsule 10/22/2016 take 1 capsule (35 mg) by oral [...] daily before breakfast for 30 days vitamin F50-tvrkq acid 500-400 mcg oral tablet 08/29/2016 09/28/2016 [...] inhalation route every 4-6 hours as needed Problem List Description Status Onset Depression Active Chronic back pain Active Vital Signs Date Time BP-Sys(mm[Hg] BP-Jaleesa(mm[Hg]) HR(bpm) RR(rpm) Temp WT HT HC BMI BSA BMI Percentile O2 Sat(%) 11/26/2016 1:22:00 PM 114 mmHg 70 mmHg [...] 05/25/2015 12:00 AM Depo-Medrol, Per 80 Mg [facility]#[id number] Reviewed 05/25/2015 12:00 AM Decadron, Per 1 Mg [facility]# [id number] Reviewed 09/12/2015 12:00 AM COMPLETE CBC W/AUTO [...] 11/15/2014 12:00 AM Decadron, Per 1 Mg [facility]# [id number] Reviewed 11/15/2014 12:00 AM Depo-Medrol, Per 80 Mg [facility]#[id number] Reviewed 11/17/2014 12:00 AM MRI LUMBAR SPINE [...] Dysphagia, unspecified type Nov 26 2016 1:26PM Payers Insurance Name Company Name Plan Name Plan Number Policy Number Policy Group Number [id number] Saturday, 2014 Early Detection Works [employer] [id number] N/A [employer] Financial Assistance [facility] Financial D[employer] Tuesday, June 23, 2009 History of Encounters Visit Date Visit Type Provider 11/26/2016 Office visit Kam Bullock AVIATION SURVIVAL TECHNICIAN 10/22/2016 Office visit Kam Bullock AVIATION SURVIVAL TECHNICIAN 08/29/2016 Office visit Kam Bullock AVIATION SURVIVAL TECHNICIAN 06/21/2016 Office visit Kam Bullock AVIATION SURVIVAL TECHNICIAN 04/25/2016 Office visit Kam Bullock AVIATION SURVIVAL TECHNICIAN 03/16/2016 Office visit Sidney Romero PA-C 02/08/2016 Office visit Kam Bullock AVIATION SURVIVAL TECHNICIAN 12/27/2015 Office visit Kam Bullock AVIATION SURVIVAL TECHNICIAN 11/22/2015 Office visit Kam Bullock AVIATION SURVIVAL TECHNICIAN 10/04/2015 Office visit Kam Bullock AVIATION SURVIVAL TECHNICIAN 09/12/2015 Office visit Kam Bullock AVIATION SURVIVAL TECHNICIAN 07/18/2015 Office visit Erica Cassidy AVIATION SURVIVAL TECHNICIAN 05/25/2015 Office visit Kam Bullock AVIATION SURVIVAL TECHNICIAN 01/04/2015 Office visit Erica Cassidy AVIATION SURVIVAL TECHNICIAN 12/27/2014 Office visit Kam Bullock AVIATION SURVIVAL TECHNICIAN 11/25/2014 Office visit rEica Cassidy AVIATION SURVIVAL TECHNICIAN 11/15/2014 Office visit Erica Cassidy AVIATION SURVIVAL TECHNICIAN 09/08/2014 Hospital Bhavesh Gridre MD 08/29/2014 Office visit Erica Cassidy AVIATION SURVIVAL TECHNICIAN 08/29/2014 Voided Bhavesh Grider MD 08/10/2014 Office visit Erica Cassidy AVIATION SURVIVAL TECHNICIAN 03/08/2010 Surgery Bhavesh Grider MD 03/05/2010 Surgery Bhavesh Grider MD 03/02/2010 Voided Bhavesh Grider MD 01/09/2010 Office visit Hardeep Tsang DO 06/05/2009 Laboratory Adriana Stuart MD
--- OUTSIDE RECORDS SUMMARY | 2018-12-04 16:36 | XMS REPORT ---
Author Author Kam Bullock [facility] Address [address] [place], [place] [address] Care Team Providers Care Sailing Officer Name Role Phone Kam Bullock PCP Allergies [...] HC BMI BSA BMI Percentile O2 Sat(%) 10/04/2015 3:09:00 PM 130 mmHg 80 mmHg [...] 05/25/2015 12:00 AM Depo-Medrol, Per 80 Mg [facility]#[id number] Reviewed 05/25/2015 12:00 AM Decadron, Per 1 Mg [place]# [id number] Reviewed 09/12/2015 12:00 AM COMPLETE CBC W/AUTO [...] 12:00 AM Decadron, Per 1 Mg [facility]# [id number] Reviewed 11/15/2014 12:00 AM Depo-Medrol, Per 80 Mg ND#[id number] Reviewed 11/17/2014 12:00 AM MRI LUMBAR SPINE [...] 2015 3:10PM Dysuria Oct 04 2015 3:10PM Payers Insurance Name Company Name Plan Name Plan Number Policy Number Policy Group Number Start Date BCBS [facility] [place] [id number] Saturday, 2014 Early Detection Works [employer] [id number] N/A [employer] Financial Assistance [employer] Financial D[employer] Tuesday, 2009 History of Encounters Visit Date Visit Type Provider 10/04/2015 Office visit Kam Bullock LINUX ADMIN ENGINEER 09/12/2015 Office visit Kam Bullock LINUX ADMIN ENGINEER 07/18/2015 Office visit Erica Cassidy LINUX ADMIN ENGINEER 05/25/2015 Office visit Kam Bullock LINUX ADMIN ENGINEER 01/04/2015 Office visit Erica Cassidy LINUX ADMIN ENGINEER 12/27/2014 Office visit Kam Bullock LINUX ADMIN ENGINEER 11/25/2014 Office visit Erica Cassidy LINUX ADMIN ENGINEER 11/15/2014 Office visit Erica Cassidy LINUX ADMIN ENGINEER 09/08/2014 Hospital Bhavesh Grider MD 08/29/2014 Office visit Erica Cassidy LINUX ADMIN ENGINEER 08/29/2014 Voided Bhavesh Grider MD 08/10/2014 Office visit Erica Cassidy LINUX ADMIN ENGINEER 03/08/2010 Surgery Bhavesh Grider MD 03/05/2010 Surgery Bhavesh Grider MD 03/02/2010 Voided Bhavesh Grider MD 01/09/2010 Office visit Hardeep Tsang DO 06/05/2009 Laboratory Adriana Stuart MD
--- OUTSIDE RECORDS SUMMARY | 2018-12-04 16:37 | XMS REPORT ---
Author Author [facility] Organization [facility] Address [address] [place], [place] [address] Care Team Providers Care Radiologic Tech Name Role Phone PCP Unavailable Allergies and Adverse Reactions Name Reaction Notes NO KNOWN DRUG ALLERGIES Plan of Treatment Planned Activity Comments Planned Date Planned Time Plan/Goal MRI LUMBAR SPINE W/O DYE 11/17/2014 12:00 AM MRI CHEST SPINE W/DYE 11/17/2014 12:00 AM Medications Active Name Start Date [...] Returned 08/10/2014 12:00 AM LIPID PANEL Returned 11/15/2014 12:00 AM THER/PROPH/DIAG INJ SC/IM Reviewed Results Summary Not available. History Of Immunizations [...] Thoracic back pain Nov 17 2014 11:26AM Payers Insurance Name Company Name Plan Name Plan Number Policy Number Policy Group Number Start Date Bcbs Bcbs [facility] [id number] Saturday, 2014 Early Detection Works [employer] [id number] N/A [employer] Financial Assistance [employer] D[employer] Tuesday, 2009 History of Encounters Visit Date Visit Type Provider 11/15/2014 Office visit Erica Cassidy FOOD CLERK 09/08/2014 Hospital Bhavesh Grider MD 08/29/2014 Voidjorge alberto Grider MD 08/29/2014 Office visit Erica Cassidy FOOD CLERK 08/10/2014 Office visit Erica Cassidy APRN 03/08/2010 Surgery Bhavesh Grider MD 03/05/2010 Surgery Bhavesh Grider MD 03/02/2010 Voided Bhavesh Grider MD 01/09/2010 Office visit Hardeep Tsang DO 06/05/2009 Laboratory Adriana Stuart MD
--- OUTSIDE RECORDS SUMMARY | 2018-12-04 16:37 | XMS REPORT ---
Author Author Kam Bullock [facility] Address [address] [place], [place] [phone] Care Team Providers Care Cattle Feeder Name Role Phone Kam Bullock PCP Allergies and Adverse Reactions Name Reaction Notes NO KNOWN DRUG ALLERGIES Plan of Treatment Planned Activity Comments Planned Date Planned Time Plan/Goal CBC W/ AUTO DIFF (RFLX MAN DIFF IF IND). 08/28/2016 12:00 AM CMP 08/28/2016 12:00 AM LIPID PANEL 08/28/2016 12:00 AM TSH 08/28/2016 12:00 AM Screening mammography of both breasts [...] 05/25/2015 12:00 AM Depo-Medrol, Per 80 Mg ND#[id number] Reviewed 05/25/2015 12:00 AM Decadron, Per 1 Mg [facility]# [address]-91 Reviewed 09/12/2015 12:00 AM COMPLETE CBC W/AUTO [...] DIP STICK/TABLET RGNT AUTO W/O MICROSCOPY Reviewed 04/25/2016 12:00 AM COMPLETE CBC W/AUTO DIFF WBC Reviewed 04/25/2016 12:00 AM COMPREHEN METABOLIC PANEL Reviewed 04/25/2016 12:00 AM X-RAY EXAM OF ABDOMEN Reviewed 01/18/2010 12:00 AM MAMMOGRAM SCREENING Reviewed [...] 11/15/2014 12:00 AM Decadron, Per 1 Mg [facility]# [address]-74 Reviewed 11/15/2014 12:00 AM Depo-Medrol, Per 80 Mg [facility]#[address]-11 Reviewed 11/17/2014 12:00 AM MRI LUMBAR SPINE [...] 2016 10:30AM Fatigue Aug 28 2016 10:30AM Payers Insurance Name Company Name Plan Name Plan Number Policy Number Policy Group Number Start Date BCBS [facility] [id number] Saturday, 2014 Early Detection Works Early [employer] [id number] N/A [employer] Financial Assistance [email or web address] Financial D[employer] Tuesday, 2009 History of [...] Cassidy APRN 12/27/2014 Office visit Kam Bullock DIE STORAGE WORKER 11/25/2014 Office visit Erica Cassidy DIE STORAGE WORKER 11/15/2014 Office visit Erica Cassidy DIE STORAGE WORKER 09/08/2014 Hospital Bhavesh Grider MD 08/29/2014 Office visit Erica Cassidy DIE STORAGE WORKER 08/29/2014 Voided Bhavesh Grider MD 08/10/2014 Office visit Erica Cassidy DIE STORAGE WORKER 03/08/2010 Surgery Bhavesh Grider MD 03/05/2010 Surgery Bhavesh Grider MD 03/02/2010 Voided Bhavesh Grider MD 01/09/2010 Office visit Hardeep Tsang DO 06/05/2009 Laboratory Adriana Stuart MD
--- OUTSIDE RECORDS SUMMARY | 2018-12-04 16:37 | XMS REPORT ---
Author Author Kam Bullock [facility] Address [address] [place], [place] [address] Care Team Providers Care Costume Technician Name Role Phone Kam Bullock PCP Kam [...] tablet by oral route once daily vitamin C18-skhyo acid 500-400 mcg oral tablet 08/29/2016 09/28/2016 [...] 05/25/2015 12:00 AM Depo-Medrol, Per 80 Mg [facility]#[address]-30 Reviewed 05/25/2015 12:00 AM Decadron, Per 1 Mg [facility]# [address]-14 Reviewed 09/12/2015 12:00 AM COMPLETE CBC W/AUTO [...] AM COMPLETE CBC W/AUTO DIFF WBC Returned 08/28/2016 12:00 AM COMPREHEN METABOLIC PANEL Returned 08/28/2016 12:00 AM LIPID PANEL Returned 08/28/2016 12:00 AM ASSAY THYROID STIM HORMONE Returned 01/18/2010 12:00 AM MAMMOGRAM SCREENING Reviewed [...] 11/15/2014 12:00 AM Decadron, Per 1 Mg [facility]# [address]-64 Reviewed 11/15/2014 12:00 AM Depo-Medrol, Per 80 Mg [facility]#[address]-39 Reviewed 11/17/2014 12:00 AM MRI LUMBAR SPINE [...] Number Policy Group Number [facility] Date [id number] Saturday, 2014 Early Detection Works Early [employer] Works [id number] N/A [employer] Financial Assistance [employer] Financial Dc Green Tuesday, 2009 History of Encounters Visit Date Visit Type Provider 08/29/2016 Office visit Kam Bullock APRN 06/21/2016 Office visit Kam Bullock APRN 04/25/2016 Office visit Kam Bullock DUTY ENGINEER 03/16/2016 Office visit Sidney Romero PA-C 02/08/2016 Office visit Kam Bullock DUTY ENGINEER 12/27/2015 Office visit Kam Bullock DUTY ENGINEER 11/22/2015 Office visit Kam Bullock DUTY ENGINEER 10/04/2015 Office visit Kam Bullock DUTY ENGINEER 09/12/2015 Office visit Kam Bullock DUTY ENGINEER 07/18/2015 Office visit Erica Cassidy DUTY ENGINEER 05/25/2015 Office visit Kam Bullock DUTY ENGINEER 01/04/2015 Office visit Erica Cassidy DUTY ENGINEER 12/27/2014 Office visit Kam Bullock DUTY ENGINEER 11/25/2014 Office visit Erica Cassidy DUTY ENGINEER 11/15/2014 Office visit Erica Cassidy DUTY ENGINEER 09/08/2014 Hospital Bhavesh Grider MD 08/29/2014 Office visit Erica Cassidy DUTY ENGINEER 08/29/2014 Voided Bhavesh Grider MD 08/10/2014 Office visit Erica Cassidy APRN 03/08/2010 Surgery Bhavesh Grider MD 03/05/2010 Surgery Bhavesh Grider MD 03/02/2010 Voided Bhavesh Grider MD 01/09/2010 Office visit Hardeep Tsang DO 06/05/2009 Laboratory Adriana Stuart MD
--- OUTSIDE RECORDS SUMMARY | 2018-12-04 16:38 | XMS REPORT ---
Author Author [facility] Organization [facility] Address [address] [place], [place] [address] Care Team Providers Care Psychiatric Registered Nurse Name Role Phone PCP Unavailable Allergies and [...] route 3 times per day as needed hydrocodone-acetaminophen oral tablet 5-325 mg 12/27/2014 take 1 tablet by oral route every 6 hours as needed for pain Name Start Date Expiration Date SIG Comments prednisone oral tablet 20 mg 08/29/2014 09/07/2014 take 3 tabs PO x 3 days, then 2 tabs PO x 3 days, and then 1 tab PO x 3 days Ultram oral tablet 50 mg 11/25/2014 take 1 tablet (50 mg) by oral route every 4-6 hours as needed Problem List Not available. Vital Signs Date Time BP-Sys(mm[Hg] BP-Jaleesa(mm[Hg]) HR(bpm) RR(rpm) Temp WT HT HC BMI BSA BMI Percentile O2 Sat(%) 12/27/2014 2:25:00 PM 120 mmHg 70 mmHg [...] 11/15/2014 12:00 AM THER/PROPH/DIAG INJ SC/IM Reviewed 11/17/2014 12:00 AM MRI LUMBAR SPINE [...] 3:55PM Back pain Dec 27 2014 2:27PM Payers Insurance Name Company Name Plan Name Plan Number Policy Number Policy Group Number Start Date Bcbs [facility] [id number] Saturday, 2014 Early Detection Works Early [employer] [id number] N/A [employer] Financial Assistance [employer] D[employer] Tuesday, 2009 History of Encounters Visit Date Visit Type Provider 12/27/2014 Office visit Kam Bullock DANCE MASTER 11/25/2014 Office visit Erica Cassidy DANCE MASTER 11/15/2014 Office visit Erica Cassidy DANCE MASTER 09/08/2014 Hospital Bhavesh Grider MD 08/29/2014 Voided Bhavesh Grider MD 08/29/2014 Office visit Erica Cassidy DANCE MASTER 08/10/2014 Office visit Erica Cassidy DANCE MASTER 03/08/2010 Surgery Bhavesh Grider MD 03/05/2010 Surgery Bhavesh Grider MD 03/02/2010 Voided Bhavesh Griedr MD 01/09/2010 Office visit Hardeep Tsang DO 06/05/2009 Laboratory Adriana Stuart MD
--- OUTSIDE RECORDS SUMMARY | 2018-12-04 16:38 | XMS REPORT ---
Author Author Kam Bullock [facility] Address [address] [place], [place] [address] Care Team Providers Care Folder Gluer Operator Name Role Phone Kam Bullock PCP Allergies [...] for pain Zoloft 50 mg oral tablet 12/22/2015 take [...] per day phentermine 37.5 mg oral capsule 04/25/2016 05/25/2016 take 1 capsule (37.5 mg) by oral [...] HC BMI BSA BMI Percentile O2 Sat(%) 04/25/2016 4:07:00 PM 130 mmHg 72 mmHg [...] 05/25/2015 12:00 AM Depo-Medrol, Per 80 Mg [facility]#[address]-96 Reviewed 05/25/2015 12:00 AM Decadron, Per 1 Mg [facility]# [address]-79 Reviewed 09/12/2015 12:00 AM COMPLETE CBC W/AUTO [...] 11/15/2014 12:00 AM Decadron, Per 1 Mg [facility]# [address]-70 Reviewed 11/15/2014 12:00 AM Depo-Medrol, Per 80 Mg [facility]#[address]-73 Reviewed 11/17/2014 12:00 AM MRI LUMBAR SPINE [...] 4:12PM BMI 32.0-32.9,adult Apr 25 2016 4:12PM Payers Insurance Name Company Name Plan Name Plan Number Policy Number Policy Group Number Start Date BCBS [facility] [facility] [place] [id number] Saturday, 2014 Early Detection Works [employer] [id number] N/A [employer] Financial Assistance [employer] D[employer] Tuesday, 2009 History of Encounters Visit Date Visit Type Provider 04/25/2016 Office visit Kam Bullock IMPREGNATION OPERATOR 03/16/2016 Office visit Sidney Romero PA-C 02/08/2016 Office visit Kam Bullock IMPREGNATION OPERATOR 12/27/2015 Office visit Kam Bullock IMPREGNATION OPERATOR 11/22/2015 Office visit Kam Bullock IMPREGNATION OPERATOR 10/04/2015 Office visit Kam Bullock IMPREGNATION OPERATOR 09/12/2015 Office visit Kam Bullock IMPREGNATION OPERATOR 07/18/2015 Office visit Erica Cassidy IMPREGNATION OPERATOR 05/25/2015 Office visit Kam Bullock IMPREGNATION OPERATOR 01/04/2015 Office visit Erica Cassidy IMPREGNATION OPERATOR 12/27/2014 Office visit Kam Bullock IMPREGNATION OPERATOR 11/25/2014 Office visit Erica Cassidy IMPREGNATION OPERATOR 11/15/2014 Office visit Erica Cassidy IMPREGNATION OPERATOR 09/08/2014 Hospital Bhavesh Grider MD 08/29/2014 Office visit Erica Cassidy IMPREGNATION OPERATOR 08/29/2014 Voided Bhavesh Grider MD 08/10/2014 Office visit Erica Cassidy APRN 03/08/2010 Surgery Bhavesh Grider MD 03/05/2010 Surgery Bhavesh Grider MD 03/02/2010 Voided Bhavesh Grider MD 01/09/2010 Office visit Hardeep Tsang DO 06/05/2009 Laboratory Adriana Stuart MD
--- OUTSIDE RECORDS SUMMARY | 2018-12-04 16:39 | XMS REPORT ---
Author Author Kam Bullock [facility] Address [address] [place], [place] [address] Care Team Providers Care Plaster Machine Tender Name Role Phone Kam Bullock PCP Kam [...] daily before breakfast for 30 days vitamin B58-zmdva acid 500-400 mcg oral tablet 08/29/2016 09/28/2016 [...] HC BMI BSA BMI Percentile O2 Sat(%) 10/22/2016 4:11:00 PM 110 mmHg 61 mmHg 71 bpm 20 rpm 97.3 F 209.375 lbs 66 in 33.79 kg/m2 2.10 m2 96 % 08/29/2016 3:26:00 PM 120 mmHg 70 mmHg 56 bpm 16 rpm 97.6 F 210 lbs 67 in 32.8903 kg/m 2.122 m 96 % 06/21/2016 10:50:00 AM 130 mmHg [...] 12:00 AM Depo-Medrol, Per [address] [facility]#[address]-03 Reviewed 05/25/2015 12:00 AM Decadron, Per [address] [facility]# [address]-39 Reviewed 09/12/2015 12:00 AM COMPLETE CBC W/AUTO [...] 12:00 AM Decadron, Per [address] [facility]# [address]-43 Reviewed 11/15/2014 12:00 AM Depo-Medrol, Per [address] [facility]#[address]-09 Reviewed 11/17/2014 12:00 AM MRI LUMBAR SPINE [...] 2016 4:15PM Polyphagia Oct 22 2016 4:15PM Payers Insurance Name Company Name Plan Name Plan Number Policy Number Policy Group Number [facility] [id number] Saturday, 2014 Early Detection Works [employer] [id number] N/A [employer] Financial Assistance [employer] D[employer] Tuesday, 2009 History of Encounters Visit Date Visit Type Provider 10/22/2016 Office visit Kam Bullock TOOL SHAPER SET UP OPERATOR 08/29/2016 Office visit Kam Dengran TOOL SHAPER SET UP OPERATOR 06/21/2016 Office visit Kam Dengran TOOL SHAPER SET UP OPERATOR 04/25/2016 Office visit Kam Dengran TOOL SHAPER SET UP OPERATOR 03/16/2016 Office visit Sidney Romero PA-C 02/08/2016 Office visit Kam Bullock TOOL SHAPER SET UP OPERATOR 12/27/2015 Office visit Kam Bullock TOOL SHAPER SET UP OPERATOR 11/22/2015 Office visit Kam Bullock TOOL SHAPER SET UP OPERATOR 10/04/2015 Office visit Kam Dengran TOOL SHAPER SET UP OPERATOR 09/12/2015 Office visit Kam Bullock TOOL SHAPER SET UP OPERATOR 07/18/2015 Office visit Erica Cassidy TOOL SHAPER SET UP OPERATOR 05/25/2015 Office visit Kam Bullock TOOL SHAPER SET UP OPERATOR 01/04/2015 Office visit Erica Cassidy TOOL SHAPER SET UP OPERATOR 12/27/2014 Office visit Kam Bullock TOOL SHAPER SET UP OPERATOR 11/25/2014 Office visit Erica Cassidy TOOL SHAPER SET UP OPERATOR 11/15/2014 Office visit Erica Cassidy TOOL SHAPER SET UP OPERATOR 09/08/2014 Hospital Bhavesh Grider MD 08/29/2014 Office visit Erica Cassidy TOOL SHAPER SET UP OPERATOR 08/29/2014 Voided Bhavesh Grider MD 08/10/2014 Office visit Erica Cassidy TOOL SHAPER SET UP OPERATOR 03/08/2010 Surgery Bhavesh Grider MD 03/05/2010 Surgery Bhavesh Grider MD 03/02/2010 Voided Bhavesh Grider MD 01/09/2010 Office visit Hardeep Tsang DO 06/05/2009 Laboratory Adriana Stuart MD
--- OUTSIDE RECORDS SUMMARY | 2018-12-04 16:40 | XMS REPORT ---
Author Author [facility] Organization [facility] Address [address] [place], [place] [address] Care Team Providers Care Residential Assistant Name Role Phone PCP Unavailable Allergies and [...] route 3 times per day as needed Ultram oral tablet 50 mg 11/25/2014 take 1 tablet (50 mg) by oral route every 4-6 hours as needed Name [...] HC BMI BSA BMI Percentile O2 Sat(%) 11/25/2014 3:52:00 PM 102 mmHg 62 mmHg [...] Abnormal radiographic examination Nov 25 2014 3:55PM Payers Insurance Name Company Name Plan Name Plan Number Policy Number Policy Group Number Start Date Bcbs [employer] [place] [id number] Saturday, 2014 Early Detection Works [employer] [id number] N/A [employer] Financial Assistance [employer] Dc [employer] Tuesday, 2009 History of Encounters Visit Date Visit Type Provider 11/25/2014 Office visit Erica Cassidy BLOCKER HAND 11/15/2014 Office visit Erica Cassidy BLOCKER HAND 09/08/2014 [facility] Bhavesh Grider MD 08/29/2014 Voided Bhavesh Grider MD 08/29/2014 Office visit Erica Cassidy BLOCKER HAND 08/10/2014 Office visit Erica Cassidy BLOCKER HAND 03/08/2010 Surgery Bhavesh Grider MD 03/05/2010 Surgery Bhavesh Grider MD 03/02/2010 Voided Bhavesh Grider MD 01/09/2010 Office visit Hardeep Tsang DO 06/05/2009 Laboratory Adriana Stuart MD
--- OUTSIDE RECORDS SUMMARY | 2018-12-04 16:40 | XMS REPORT ---
Author Author Bhavesh Grider [facility] Address [address] [place], [place] [id number] Care Team Providers Care Pain Management Specialist Name Role Phone Bhavesh Grider PCP Unavailable Kam Bullock PreferredProvider Allergies and Adverse Reactions Name Reaction Notes NO KNOWN DRUG ALLERGIES Plan of Treatment Planned Activity Comments Planned Date Planned Time Plan/Goal Screening mammography of both breasts 11/25/2014 12:00 AM Bone and/or joint imaging; whole body 11/25/2014 12:00 AM Medications Active Name Start Date Estimated Completion Date SIG Comments Zoloft 50 mg oral tablet 12/30/2016 take 1/2 tablet by oral route once daily for 7 days and then increase to 1 tablet by oral route once daily Zorvolex 35 mg oral capsule 04/15/2017 07/14/2017 TAKE ONE (1) CAPSULE BY MOUTH THREE (3) TIMES DAILY aspirin 81 mg oral tablet,delayed release (DR/EC) take 1 tablet (81 mg) by oral route once daily omeprazole 40 mg oral capsule,delayed release(DR/EC) take 1 capsule (40 mg) by oral route 2 times per day before a meal sucralfate 1 gram oral tablet take 1 tablet (1 gram) by oral route 4 times per day on an empty stomach 1 hour before meals and at bedtime Vitamin D3 oral Daily biotin oral Daily hynvtih-gpgihvbrp-ibyy oral Daily vitamin B complex oral tablet take 1 tablet by oral route daily Probiotic oral Daily Turmeric Curcumin Daily Name Start Date Expiration Date SIG Comments [...] daily before breakfast for 30 days vitamin U87-czczw acid 500-400 mcg oral tablet 08/29/2016 09/28/2016 [...] the morning and evening for 30 days Discontinued Name Start Date [...] HC BMI BSA BMI Percentile O2 Sat(%) 04/15/2017 2:21:00 PM 110 mmHg 70 mmHg 75 bpm 16 rpm 96.4 F 216 lbs 66 in 34.86 kg/m2 2.14 m2 99 % 11/26/2016 1:22:00 PM 114 mmHg 70 mmHg 79 bpm 16 rpm 97.1 F 210.125 lbs 66 in 33.9147 kg/m 2.1067 m 97 % 10/22/2016 4:11:00 PM 110 mmHg [...] 05/25/2015 12:00 AM Depo-Medrol, Per 80 Mg [facility]#[address]-05 Reviewed 05/25/2015 12:00 AM Decadron, Per 1 Mg [facility]# [address]-70 Reviewed 09/12/2015 12:00 AM COMPLETE CBC W/AUTO [...] 11/15/2014 12:00 AM Decadron, Per 1 Mg [facility]# [address]-57 Reviewed 11/15/2014 12:00 AM Depo-Medrol, Per 80 Mg [facility]#[address]-88 Reviewed 11/17/2014 12:00 AM MRI LUMBAR SPINE [...] 2017 2:21PM Dyspepsia Apr 15 2017 2:21PM Payers Insurance Name Company Name Plan Name Plan Number Policy Number Policy Group Number Start Date BCBS Bcbs [facility] [id number] Saturday, 2014 Early Detection Works Early Detection [employer] [id number] N/A [employer] Assistance [employer] Tuesday, 2009 History of Encounters Visit Date Visit Type Provider 04/15/2017 Office visit Bhavesh Grider MD 11/26/2016 [...] 11/15/2014 Office visit Erica Cassidy APRN 09/08/2014 [facility] Bhavesh Grider MD 08/29/2014 Office visit Erica Cassidy APRN 08/29/2014 Voided Bhavesh Grider MD 08/10/2014 Office visit Erica Cassidy APRN 03/08/2010 Surgery Bhavesh Grider MD 03/05/2010 Surgery Bhvaesh Grider MD 03/02/2010 Voided Bhavesh Grider MD 01/09/2010 Office visit Hardeep Tsang DO 06/05/2009 Laboratory Adriana Stuart MD
--- OUTSIDE RECORDS SUMMARY | 2018-12-04 16:41 | XMS REPORT ---
Author Author Sidney Romero Organization [facility] Address [address] [place], [place] [address] Care Team Providers Care On Car Supervisor Name Role Phone Sidney Romero PCP Unavailable [...] AM Depo-Medrol, Per 80 Mg [facility]#[address]-23 Reviewed 05/25/2015 12:00 AM Decadron, Per 1 Mg [facility]# [address]-21 Reviewed 09/12/2015 12:00 AM COMPLETE CBC W/AUTO [...] AM Decadron, Per 1 Mg [facility]# [address]-07 Reviewed 11/15/2014 12:00 AM Depo-Medrol, Per 80 Mg [facility]#[address]-73 Reviewed 11/17/2014 12:00 AM MRI LUMBAR SPINE [...] Group Number Start Date BCBS [employer]bs [facility] [place] [id number] Saturday, 2014 Early Detection Works [employer] [id number] N/A [employer] Financial Assistance [employer] Dc [employer] Tuesday, 2009 History of Encounters Visit Date Visit Type Provider 03/16/2016 Office visit Sidney Romero PA-C 02/08/2016 Office visit Kam Bullock BASKETBALL SCOUT 12/27/2015 Office visit Kam Bullock BASKETBALL SCOUT 11/22/2015 Office visit Kam Bullock BASKETBALL SCOUT 10/04/2015 Office visit Kam Bullock BASKETBALL SCOUT 09/12/2015 Office visit Kam Bullock BASKETBALL SCOUT 07/18/2015 Office visit Erica Cassidy BASKETBALL SCOUT 05/25/2015 Office visit Kam Bullock APRN 01/04/2015 Office visit Erica Cassidy BASKETBALL SCOUT 12/27/2014 Office visit Kam Bullock BASKETBALL SCOUT 11/25/2014 Office visit Erica Cassidy BASKETBALL SCOUT 11/15/2014 Office visit Erica Cassidy BASKETBALL SCOUT 09/08/2014 Hospital Bhavesh Grider MD 08/29/2014 Office visit Erica Cassidy BASKETBALL SCOUT 08/29/2014 Voided Bhavesh Grider MD 08/10/2014 Office visit Erica Cassidy BASKETBALL SCOUT 03/08/2010 Surgery Bhavesh Grider MD 03/05/2010 Surgery Bhavesh Grider MD 03/02/2010 Voided Bhavesh Grider MD 01/09/2010 Office visit Hardeep Tsang DO 06/05/2009 Laboratory Adriana Stuart MD
--- OUTSIDE RECORDS SUMMARY | 2018-12-04 16:41 | XMS REPORT ---
Author Author Kam Bullock [facility] Address [address] [place], [place] [address] Care Team Providers Care Cruise Coordinator Name Role Phone Kam Bullock PCP Kam [...] tablet by oral route once daily vitamin Q12-vsahw acid 500-400 mcg oral tablet 08/29/2016 09/28/2016 [...] 05/25/2015 12:00 AM Depo-Medrol, Per 80 Mg [facility]#[address]-81 Reviewed 05/25/2015 12:00 AM Decadron, Per 1 Mg [facility]# [address]-78 Reviewed 09/12/2015 12:00 AM COMPLETE CBC W/AUTO [...] 11/15/2014 12:00 AM Decadron, Per 1 Mg [facility]# [address]-01 Reviewed 11/15/2014 12:00 AM Depo-Medrol, Per 80 Mg [facility]#[address]-89 Reviewed 11/17/2014 12:00 AM MRI LUMBAR SPINE [...] for breast cancer Sep 02 2016 10:54AM Payers Insurance Name Company Name Plan Name Plan Number Policy Number Policy Group Number Start Date [facility] [id number] Saturday, 2014 Early Detection Works Early Detection Works [id number] N/A [employer] Financial Assistance [employer] Dc Green Tuesday, 2009 History of [...] Cassidy APRN 12/27/2014 Office visit Kam Bullock MAINTENANCE ADVISOR 11/25/2014 Office visit Erica Cassidy MAINTENANCE ADVISOR 11/15/2014 Office visit Erica Cassidy MAINTENANCE ADVISOR 09/08/2014 Hospital Bhavesh Grider MD 08/29/2014 Office visit Erica Cassidy MAINTENANCE ADVISOR 08/29/2014 Voided Bhavesh Grider MD 08/10/2014 Office visit Erica Cassidy MAINTENANCE ADVISOR 03/08/2010 Surgery Bhavesh Grider MD 03/05/2010 Surgery Bhavesh Grider MD 03/02/2010 Voided Bhavesh Grider MD 01/09/2010 Office visit Hardeep Tsang DO 06/05/2009 Laboratory Adriana Stuart MD
--- OUTSIDE RECORDS SUMMARY | 2018-12-04 16:42 | XMS REPORT ---
Author Author Kam Bullock [facility] Address [address] [place], [place] [address] Care Team Providers Care Nursery Manager Name Role Phone Kam Bullock PCP Allergies [...] until pain is gone or develops diarrhea phentermine 37.5 mg oral capsule 02/08/2016 03/09/2016 [...] HC BMI BSA BMI Percentile O2 Sat(%) 02/08/2016 3:43:00 PM 110 mmHg 66 mmHg [...] lbs 68 in 32.84 kg/m2 2.1681 m 99 % 12/27/2014 2:25:00 PM 120 mmHg 70 mmHg 53 bpm 18 rpm 98.7 F 216 lbs 68 in 32.8424 kg/m 2.17 m2 98 % 11/25/2014 3:52:00 PM 102 mmHg 62 mmHg 65 bpm 20 rpm 97.4 F 219 lbs 68 in 33.30 kg/m2 2.1831 m 97 % 11/15/2014 3:54:00 PM 115 mmHg 69 mmHg 69 bpm 20 rpm 97.8 F 217.2 lbs 68 in 33.0248 kg/m 2.17 m2 99 % 08/29/2014 3:41:00 PM 104 mmHg 66 mmHg 67 bpm 20 rpm 96.6 F 221 lbs 68 in 33.60 kg/m2 2.1931 m 95 % 08/10/2014 3:44:00 PM 115 mmHg 61 mmHg 81 bpm 20 rpm 97.8 F 221 lbs 68 in 33.6026 kg/m 2.19 m2 96 % 03/05/2010 2:29:00 PM 100 mmHg 60 mmHg 64 bpm 18 rpm 97.3 F 243 lbs 01/09/2010 1:54:00 PM 96 mmHg 58 mmHg 88 bpm 18 rpm 98.5 F 244 lbs 68 in 37.0997 kg/m 2.30 m2 Social History Name Description Comments Tobacco Never smoker History of Procedures Date Ordered Description Order Status 05/25/2015 12:00 AM THER/PROPH/DIAG INJ SC/IM Reviewed 05/25/2015 12:00 AM Depo-Medrol, Per 80 Mg [facility]#[address]-29 Reviewed 05/25/2015 12:00 AM Decadron, Per 1 Mg [facility]# [address]-18 Reviewed 09/12/2015 12:00 AM COMPLETE CBC W/AUTO [...] 1 Mg [facility]# [address]-08 Reviewed 11/15/2014 12:00 AM Depo-Medrol, Per 80 Mg [facility]#[address]-77 Reviewed 11/17/2014 12:00 AM MRI LUMBAR SPINE [...] to excess calories Feb 08 2016 3:53PM Payers Insurance Name Company Name Plan Name Plan Number Policy Number Policy Group Number Start Date [id number] Saturday, 2014 Early Detection Works Early Detection Works [id number] N/A [employer] Financial Assistance [employer] Financial Dc Green Tuesday, 2009 History of Encounters Visit Date Visit Type Provider 02/08/2016 Office visit Kam Bullock JOB FORWARDER 12/27/2015 Office visit Kam Bullock JOB FORWARDER 11/22/2015 Office visit Kam Bullock JOB FORWARDER 10/04/2015 Office visit Kam Bullock JOB FORWARDER 09/12/2015 Office visit Kam Bullock JOB FORWARDER 07/18/2015 Office visit Erica Cassidy JOB FORWARDER 05/25/2015 Office visit Kam Bullock JOB FORWARDER 01/04/2015 Office visit Erica Cassidy JOB FORWARDER 12/27/2014 Office visit Kam Bullock JOB FORWARDER 11/25/2014 Office visit Erica Cassidy JOB FORWARDER 11/15/2014 Office visit Erica Cassidy JOB FORWARDER 09/08/2014 [facility] Bhavesh Grider MD 08/29/2014 Office visit Erica Cassidy JOB FORWARDER 08/29/2014 Voided Bhavesh Grider MD 08/10/2014 Office visit Erica Cassidy APRN 03/08/2010 Surgery Bhavesh Grider MD 03/05/2010 Surgery Bhavesh Grider MD 03/02/2010 Voided Bhavesh Grider MD 01/09/2010 Office visit Hardeep Tsang DO 06/05/2009 Laboratory Adriana Stuart MD
--- OUTSIDE RECORDS SUMMARY | 2018-12-04 16:42 | XMS REPORT ---
Author Author Kam Bullock [facility] Address [address] [place], [place] [address] Care Team Providers Care Nail Feeder Name Role Phone Kam Bullock PCP Kam [...] tablet by oral route once daily vitamin A56-ujvmp acid 500-400 mcg oral tablet 08/29/2016 09/28/2016 [...] 05/25/2015 12:00 AM Depo-Medrol, Per 80 Mg [facility]#[address]-40 Reviewed 05/25/2015 12:00 AM Decadron, Per 1 Mg [facility]# [address]-40 Reviewed 09/12/2015 12:00 AM COMPLETE CBC W/AUTO [...] 12:00 AM ASSAY THYROID STIM HORMONE Reviewed 01/18/2010 12:00 AM MAMMOGRAM SCREENING Reviewed [...] 11/15/2014 12:00 AM Decadron, Per 1 Mg [facility]# [address]-94 Reviewed 11/15/2014 12:00 AM Depo-Medrol, Per 80 Mg [facility]#[address]-76 Reviewed 11/17/2014 12:00 AM MRI LUMBAR SPINE [...] Group Number Start Date BCBS Bcbs [facility] [place] [id number] Saturday, 2014 Early Detection Works Early Detection Works [id number] N/A [employer] Financial Assistance [employer] Dc Green Tuesday, 2009 History of [...] Bullock APRN 11/25/2014 Office visit Erica Cassidy SHOE SPRAYER 11/15/2014 Office visit Erica Cassidy SHOE SPRAYER 09/08/2014 Hospital Bhavesh Grider MD 08/29/2014 Office visit Erica Cassidy SHOE SPRAYER 08/29/2014 Voided Bhavesh Grider MD 08/10/2014 Office visit Erica Cassidy SHOE SPRAYER 03/08/2010 Surgery Bhavesh Grider MD 03/05/2010 Surgery Bhavesh Grider MD 03/02/2010 Voided Bhavesh Grider MD 01/09/2010 Office visit Hardeep Tsang DO 06/05/2009 Laboratory Adriana Stuart MD
--- OUTSIDE RECORDS SUMMARY | 2018-12-04 16:43 | XMS REPORT | Continuity of Care Document ---
Demographics Preferred Language Unknown Marital Status Unknown Bahai Affiliation Unknown Race Unknown Ethnic Group Unknown Author Organization Unknown Address Unknown Allergies Active Description Code Type Severity Reaction Onset Reported/Identified Relationship to Patient Clinical Status Yes No Known Allergies [id number] N/A N/A Yes No Known Drug Allergies [id number] Drug Allergy Unknown N/A 11/30/2018 Medications There is no data. Problems Date Dx Coded Attending Type Code Diagnosis Diagnosed By 02/15/2011 727.51 SYNOVIAL CYST OF POPLITEAL SPACE 04/11/2011 836.0 TEAR OF MEDIAL CARTILAGE OR MENISCUS OF KNEE CURRENT 10/04/2011 789.06 abdominal pain in the central upper belly (epigastric) 11/11/2011 786.50 UNSPECIFIED CHEST PAIN 11/13/2011 Ot 397.0 11/13/2011 Ot 414.01 11/13/2011 Ot 424.0 11/13/2011 Ot 426.4 11/13/2011 Ot 429.3 11/13/2011 Ot 729.5 11/13/2011 Ot 786.09 11/13/2011 Ot 786.50 11/13/2011 Ot 786.59 11/13/2011 Ot 794.30 02/26/2012 459.81 VENOUS INSUFFICIENCY 02/26/2012 780.79 FATIGUE 02/26/2012 789.00 abdominal pain feels crampy / colicky 08/09/2015 Ot 564.00 08/09/2015 Ot 789.05 08/09/2015 Ot 211.3 08/09/2015 Ot 530.11 08/09/2015 Ot 535.40 08/09/2015 Ot 569.3 08/09/2015 Ot V72.84 08/11/2015 Ot 564.00 08/11/2015 Ot 789.05 08/11/2015 Ot 211.3 08/11/2015 Ot 530.11 08/11/2015 Ot 535.40 08/11/2015 Ot 569.3 08/11/2015 Ot V72.84 08/11/2015 ANYI HEARD, HOLDEN Abebe Ot M51.16 INTERVERTEBRAL DISC DISORDERS W RADICULO 09/01/2015 Ot 564.00 09/01/2015 Ot 789.05 09/01/2015 Ot 211.3 09/01/2015 Ot 530.11 09/01/2015 Ot 535.40 09/01/2015 Ot 569.3 09/01/2015 Ot V72.84 09/01/2015 HOLDEN DE SANTIAGO MD, Ot M47.816 SPONDYLOSIS W/O MYELOPATHY OR RADICULOPA 09/01/2015 HOLDEN DE SANTIAGO MD, Ot M51.16 INTERVERTEBRAL DISC DISORDERS W RADICULO 09/08/2015 HOLDEN DE SANTIAGO MD, Ot M47.816 09/08/2015 HOLDEN DE SANTIAGO MD, Ot M51.16 09/10/2015 HOLDEN DE SANTIAGO MD, Ot M47.816 09/10/2015 HOLDEN DE SANTIAGO MD, Ot M51.16 09/15/2015 HOLDEN DE SANTIAGO MD, Ot M47.816 09/15/2015 HOLDEN DE SANTIAGO MD Ot M51.16 10/02/2018 P E039 Hypothyroidism, unspecified 10/02/2018 S J189 Pneumonia, unspecified organism 10/02/2018 S [id number] Contact with and (suspected) exposure to other viral communicable diseases 11/30/2018 ABDULLAHI HEARD, ELIDA Ot Z01.818 ENCOUNTER FOR OTHER PREPROCEDURAL EXAMIN Procedures There is no data. Results Test Result Range EBV Acute Infection Antibodies - 10/02/18 10:05 EBV Nuclear Antigen Ab, IgG <18.0 U/mL 0.0-17.9 EBV Early Antigen Ab, IgG 25.7 U/mL 0.0-8.9 EBV Ab VCA, IgG 330.0 U/mL 0.0-17.9 EBV Ab VCA, IgM <36.0 U/mL 0.0-35.9 Interpretation: Comment Complete blood count (CBC) with automated white blood cell (WBC) differential - 12/03/18 09:14 Blood leukocytes automated count (number/volume) 6.0 10*3/uL 4.3-11.0 Blood erythrocytes automated count (number/volume) 4.89 10*6/uL 4.35-5.85 Venous blood hemoglobin measurement (mass/volume) 14.1 g/dL 11.5-16.0 Blood hematocrit (volume fraction) 42 % 35-52 Automated erythrocyte mean corpuscular volume 85 [foz_us] 80-99 Automated erythrocyte mean corpuscular hemoglobin (mass per erythrocyte) 29 pg 25-34 Automated erythrocyte mean corpuscular hemoglobin concentration measurement (mass/volume) 34 g/dL 32-36 Automated erythrocyte distribution width ratio 13.2 % 10.0- 14.5 Automated blood platelet count (count/volume) 221 10*3/uL 130-400 Automated blood platelet mean volume measurement 9.7 [foz_us] 7.4-10.4 Automated blood neutrophils/100 leukocytes 57 % 42-75 Automated blood lymphocytes/100 leukocytes 35 % 12-44 Blood monocytes/100 leukocytes 6 % 0-12 Automated blood eosinophils/100 leukocytes 2 % 0-10 Automated blood basophils/100 leukocytes 0 % 0-10 Blood neutrophils automated count (number/volume) 3.4 10*3 1.8-7.8 Blood lymphocytes automated count (number/volume) 2.1 10*3 1.0-4.0 Blood monocytes automated count (number/volume) 0.4 10*3 0.0- 1.0 Automated eosinophil count 0.1 10*3/uL 0.0-0.3 Automated blood basophil count (count/volume) 0.0 10*3/uL 0.0-0.1 Methicillin resistant Staphylococcus aureus (MRSA) screening culture - 12/03/18 09:14 Methicillin resistant Staphylococcus aureus (MRSA) screening culture NEG [facility] Automated blood complete blood count (hemogram) panel - 12/04/18 04:40 Blood leukocytes automated count (number/volume) 12.2 10*3/uL 4.3-11.0 Blood erythrocytes automated count (number/volume) 4.71 10*6/uL 4.35-5.85 Venous blood hemoglobin measurement (mass/volume) 13.7 g/dL 11.5-16.0 Blood hematocrit (volume fraction) 39 % 35-52 Automated erythrocyte mean corpuscular volume 84 [foz_us] 80-99 Automated erythrocyte mean corpuscular hemoglobin (mass per erythrocyte) 29 pg 25-34 Automated erythrocyte mean corpuscular hemoglobin concentration measurement (mass/volume) 35 g/dL 32-36 Automated erythrocyte distribution width ratio 13.1 % 10.0- 14.5 Automated blood platelet count (count/volume) 231 10*3/uL 130-400 Automated blood platelet mean volume measurement 9.8 [foz_us] 7.4-10.4 Whole blood basic metabolic panel - 12/04/18 04:40 Serum or plasma sodium measurement (moles/volume) 135 mmol/L 135-145 Serum or plasma potassium measurement (moles/volume) 4.2 mmol/L 3.6-5.0 Serum or plasma chloride measurement (moles/volume) 105 mmol/L 98-107 Carbon dioxide 21 mmol/L 21-32 Serum or plasma anion gap determination (moles/volume) 9 mmol/L 5-14 Serum or plasma urea nitrogen measurement (mass/volume) 8 mg/dL 7-18 Serum or plasma creatinine measurement (mass/volume) 0.70 mg/dL 0.60-1.30 Serum or plasma urea nitrogen/creatinine mass ratio 11 NRG Serum or plasma creatinine measurement with calculation of estimated glomerular filtration rate > NRG Serum or plasma glucose measurement (mass/volume) 120 mg/dL 70-105 Serum or plasma calcium measurement (mass/volume) 9.0 mg/dL 8.5-10.1 Encounters ACCT No. Visit Date/Time Discharge Status Pt. Type Provider Facility Loc./Unit Complaint [id number] 10/02/2018 16:08:33 Document Registration [id number] 05/06/2018 00:07:15 Document Registration [id number] 04/03/2018 11:35:44 Document Registration [id number] 12/08/2017 10:18:12 Document Registration [id number] 10/06/2017 13:40:48 Document Registration [id number] 10/02/2017 08:16:32 Document Registration [id number] 09/30/2017 09:56:13 Document Registration [id number] 04/16/2017 15:06:18 Document Registration [id number] 04/15/2017 14:55:16 Document Registration [id number] 04/11/2017 10:21:30 Document Registration [id number] 11/30/2018 10:12:00 11/30/2018 23:59:59 CLS Outpatient ELIDA FERNANDO MD [facility] PREOP MORBID OBESITY [id number] 09/01/2015 09:55:00 09/01/2015 10:51:00 DIS Outpatient HOLDEN DE SANTIAGO MD [facility] CARD DISC DISORDER W/RADICULOPATHY LUMBAR [id number] 08/11/2015 11:09:00 08/11/2015 12:28:00 DIS Outpatient HOLDEN DE SANTIAGO MD [facility] CARD DISC DISORDER WITH LUMBAR RADICULOPATHY [id number] 12/03/2018 08:55:00 ACT Outpatient ELIDA FERNANDO MD [facility] 4TH MORBID OBESITY [id number] 01/30/2012 12:13:00 Document Registration [id number] 01/29/2012 07:29:00 Document Registration [id number] 11/11/2011 16:30:00 Document Registration [id number] 10/04/2011 12:10:00 Document Registration [id number] 11/13/2018 19:00:58 11/13/2018 23:59:59 CLS Outpatient Dorothea Ellisondy [id number] 10/02/2018 10:34:57 10/02/2018 23:59:59 CLS Outpatient Leanne Ellison [id number] 05/08/2018 09:35:00 05/08/2018 23:59:59 CLS Outpatient Bhavesh Grider [id number] 05/04/2018 15:37:17 05/04/2018 23:59:59 NATALI Outpatient Bhavesh Grider [id number] 04/28/2017 12:25:34 04/28/2017 23:59:59 CLS Outpatient Bhavesh Grider [id number] 04/21/2017 11:21:46 04/21/2017 23:59:59 CLS Outpatient Bhavesh Grider [id number] 04/15/2017 14:45:58 04/15/2017 23:59:59 NATALI Outpatient Bhavesh Grider [id number] 11/26/2016 14:19:45 11/26/2016 23:59:59 CLS Outpatient Kam Bullock [id number] 10/22/2016 17:08:10 10/22/2016 23:59:59 CLS Outpatient Kam Bullock [id number] 08/29/2016 16:08:07 08/29/2016 23:59:59 CLS Outpatient Kam Bullock [id number] 06/21/2016 11:43:41 06/21/2016 23:59:59 CLS Outpatient Kam Bullock [id number] 03/16/2016 11:11:35 03/16/2016 23:59:59 CLS Outpatient Sidney Romero [id number] 02/08/2016 16:41:32 02/08/2016 23:59:59 CLS Outpatient Kam Bullock [id number] 12/27/2015 11:39:20 12/27/2015 23:59:59 CLS Outpatient BullockKam [id number] 09/12/2015 09:24:03 09/12/2015 23:59:59 CLS Outpatient BullockKam [id number] 07/18/2015 15:25:15 07/18/2015 23:59:59 CLS Outpatient Khanh Erica Nuzhat [id number] 05/25/2015 16:35:53 05/25/2015 23:59:59 CLS Outpatient BullockKam [id number] 01/30/2015 22:16:25 01/30/2015 23:59:59 CLS Outpatient KhanhErica [id number] 01/30/2015 22:10:55 01/30/2015 23:59:59 CLS Outpatient BullockKam [id number] 01/30/2015 21:50:08 01/30/2015 23:59:59 CLS Outpatient KhanhErica [id number] 01/30/2015 21:35:44 01/30/2015 23:59:59 CLS Outpatient Erica Cassidy [id number] 09/19/2014 16:31:06 09/19/2014 23:59:59 CLS Outpatient Bhavesh Grider [id number] 09/14/2014 17:47:59 09/14/2014 23:59:59 CLS Outpatient Bhavesh Grider [id number] 10/07/2018 08:09:00 Document Registration [id number] 11/18/2018 11:00:00 11/18/2018 23:59:59 CLS Outpatient SHARMAINE LANCASTER APRN [facility] [id number] 02/26/2012 13:41:00 02/26/2012 23:59:59 CLS Outpatient
--- OUTSIDE RECORDS SUMMARY | 2018-12-04 16:43 | XMS REPORT ---
Author Author Migration, Doctor Organization [facility] Address Unknown Phone Unavailable Care Team Providers Care Operations Trainer Name Role Phone Migration, Doctor Unavailable Unavailable PROBLEMS Type Condition ICD9-CM Code ILE91-XU Code Onset Dates Condition Status SNOMED Code Problem Other malaise and fatigue 780.79 Active 838693409 Problem Unspecified venous (peripheral) insufficiency 459.81 Active 00110804 Problem Abdominal pain, epigastric 789.06 Active 48511252 Problem Abdominal pain, unspecified site 789.00 Active 05277322 Problem Chest pain, unspecified 786.50 Active 37252270 ALLERGIES No Information ENCOUNTERS Encounter Location Date Diagnosis [facility] [id number] [place] [phone] October, [facility] [id number] [place] [phone] Sep, [facility] [id number] [place] [phone] Sep, [id number] [place] [id number] Mar, [facility] [id number] [place] [phone] Mar, [id number] [place] [id number] Mar, [facility] [id number] [place] [phone] Mar, [facility] [id number] [place] [id number] Feb, [id number] [place] [id number] Feb, [facility] [id number] [place] [phone] Feb, [address] [id number] [id number] Jan, [facility] [address] [id number] [id number] Dec, [facility] [address] [id number] [id number] Dec, [facility] [address] [id number] [id number] October, [facility] [id number] [id number] October, [facility] [id number] [id number] Sep, [facility] [id number] [id number] Sep, [facility] [address] [place] [phone] Mar, [facility] [id number] [place] [phone] Mar, IMMUNIZATIONS No Known Immunizations SOCIAL HISTORY Never Assessed REASON FOR VISIT EMR-[facility] PLAN OF CARE VITAL SIGNS MEDICATIONS Unknown Medications RESULTS No Results PROCEDURES No Known procedures INSTRUCTIONS MEDICATIONS ADMINISTERED No Known Medications
--- OUTSIDE RECORDS SUMMARY | 2018-12-04 16:43 | XMS REPORT ---
Author Author Kam Bullock [facility] Address [address] [place], [place] [id number] Care Team Providers Care Library Manager Name Role Phone Kam Bullock PCP Allergies and Adverse Reactions Name Reaction Notes NO KNOWN DRUG ALLERGIES Plan of Treatment Planned Activity Comments Planned Date Planned Time Plan/Goal CBC W/ AUTO DIFF (RFLX MAN DIFF IF IND). 08/28/2016 12:00 AM CMP 08/28/2016 12:00 AM LIPID PANEL 08/28/2016 12:00 AM Screening mammography of both [...] Per 80 Mg [facility]#[address]-54 Reviewed 05/25/2015 12:00 AM Decadron, Per 1 Mg [facility]# [address]-62 Reviewed 09/12/2015 12:00 AM COMPLETE CBC W/AUTO [...] Per 1 Mg [facility]# [address]-56 Reviewed 11/15/2014 12:00 AM Depo-Medrol, Per 80 Mg [facility]#[address]-16 Reviewed 11/17/2014 12:00 AM MRI LUMBAR SPINE [...] Annual physical exam Aug 28 2016 10:30AM Payers Insurance Name Company Name Plan Name Plan Number Policy Number Policy Group Number Start Date [employer] [place] [id number] Saturday, 2014 [employer] [id number] N/A Pursuit [employer] Financial Assistance [employer] Tuesday, 2009 History of [...] 11/15/2014 Office visit Erica Cassidy APRN 09/08/2014 Hospital Bhavesh Grider MD 08/29/2014 Office visit Erica Cassidy CUT TO LENGTH OPERATOR 08/29/2014 Voided Bhavesh Grider MD 08/10/2014 Office visit Erica Cassidy CUT TO LENGTH OPERATOR 03/08/2010 Surgery Bhavesh Grider MD 03/05/2010 Surgery Bhavesh Grider MD 03/02/2010 Voided Bhavesh Grider MD 01/09/2010 Office visit Hardeep Tsang DO 06/05/2009 Laboratory Adriana Stuart MD
--- NOTE | 2018-12-04 18:00 | NUR ---
gave patient pain med at 1600 10ml of oxycodone
[2018-12-04 19:41] VITALS: BP 100/51
[2018-12-05] VITALS: BP 115/59
[2018-12-05] MEDS: oxyCODONE 5 MG/5 ML ORAL SOLN (roxiCODONE) 5 ML UDC PO PRN ×3 (00:44→09:34)
[2018-12-05] MEDS: RT-ALBUTEROL SULF 2.5 MG/3 ML PRE-MIX VIAL INH SCH ×3 (03:00→10:44)
[2018-12-05 03:50] VITALS: BP 112/57
[2018-12-05 08:00] VITALS: BP 90/53
[2018-12-05] MEDS: PANTOPRAZOLE 40 MG (PROTONIX) TAB PO SCH (08:34)
[2018-12-05] MEDS: SENNA W/DOCUSATE (SENOKOT S) TABLET PO SCH (08:34)
[2018-12-05] MEDS: ENOXAPARIN 40 MG/0.4 ML (LOVENOX) SYR SC SCH (08:34)
[2018-12-05] MEDS: PANTOPRAZOLE 40 MG (PROTONIX) VIAL IV SCH (08:35)
--- OUTSIDE RECORDS SUMMARY | 2018-12-08 15:58 | XMS REPORT | Continuity of Care Document ---
Demographics Preferred Language Unknown Marital Status Unknown Judaism Affiliation Unknown Race Unknown Ethnic Group Unknown Author Organization Unknown Address Unknown Allergies Active Description Code Type Severity Reaction Onset Reported/Identified Relationship to Patient Clinical Status Yes No Known Allergies [id number] N/A N/A Yes No Known Drug Allergies [id number] Drug Allergy Unknown N/A 11/30/2018 Medications There [...] S J189 Pneumonia, unspecified organism 10/02/2018 S [id number] Contact with and (suspected) exposure to other [...] resistant Staphylococcus aureus (MRSA) screening culture NEG [facility] Automated blood complete blood count (hemogram) panel [...] Status Pt. Type Provider Facility Loc./Unit Complaint [id number] 10/02/2018 16:08:33 Document Registration [id number] 05/06/2018 00:07:15 Document Registration [id number] 04/03/2018 11:35:44 Document Registration [id number] 12/08/2017 10:18:12 Document Registration [id number] 10/06/2017 13:40:48 Document Registration [id number] 10/02/2017 08:16:32 Document Registration [id number] 09/30/2017 09:56:13 Document Registration [id number] 04/16/2017 15:06:18 Document Registration [id number] 04/15/2017 14:55:16 Document Registration [id number] 04/11/2017 10:21:30 Document Registration [id number] 12/03/2018 14:01:00 12/05/2018 09:00:00 DIS Inpatient ELIDA FERNANDO MD [facility] 4TH MORBID OBESITY [id number] 11/30/2018 10:12:00 11/30/2018 23:59:59 CLS Outpatient ELIDA FERNANDO MD [facility] PREOP MORBID OBESITY [id number] 09/01/2015 09:55:00 09/01/2015 10:51:00 DIS Outpatient HOLDEN DE SANTIAGO MD [facility] CARD DISC DISORDER W/RADICULOPATHY LUMBAR [id number] 08/11/2015 11:09:00 08/11/2015 12:28:00 DIS Outpatient HOLDEN DE SANTIAGO MD [facility] CARD DISC DISORDER WITH LUMBAR RADICULOPATHY [id number] 01/30/2012 12:13:00 Document Registration [id number] 01/29/2012 07:29:00 Document Registration [id number] 11/11/2011 16:30:00 Document Registration [id number] 10/04/2011 12:10:00 Document Registration [id number] 11/13/2018 19:00:58 11/13/2018 23:59:59 CLS Outpatient Leanne Ellison [id number] 10/02/2018 10:34:57 10/02/2018 23:59:59 CLS Leanne Yoder [id number] 05/08/2018 09:35:00 05/08/2018 23:59:59 NATALI Outpatient Bhavesh Grider [id number] 05/04/2018 15:37:17 05/04/2018 23:59:59 CLS Outpatient Bhavesh Grider [id number] 04/28/2017 12:25:34 04/28/2017 23:59:59 CLS Outpatient Bhavesh Grider [id number] 04/21/2017 11:21:46 04/21/2017 23:59:59 CLS Outpatient Bhavesh Grider [id number] 04/15/2017 14:45:58 04/15/2017 23:59:59 CLS Outpatient Bhavesh Grider [id number] 11/26/2016 14:19:45 11/26/2016 23:59:59 CLS Outpatient Kam Bullock [id number] 10/22/2016 17:08:10 10/22/2016 23:59:59 CLS Outpatient Kam Bullock [id number] 08/29/2016 16:08:07 08/29/2016 23:59:59 CLS Outpatient Kam Bullock [id number] 06/21/2016 11:43:41 06/21/2016 23:59:59 CLS Outpatient Kam Bullock [id number] 03/16/2016 11:11:35 03/16/2016 23:59:59 CLS Outpatient Sidney Romero [id number] 02/08/2016 16:41:32 02/08/2016 23:59:59 CLS Outpatient Kam Bullock [id number] 12/27/2015 11:39:20 12/27/2015 23:59:59 CLS Outpatient Kam Bullock [id number] 09/12/2015 09:24:03 09/12/2015 23:59:59 CLS Outpatient Kam Bullock [id number] 07/18/2015 15:25:15 07/18/2015 23:59:59 CLS Outpatient KhanhErica [id number] 05/25/2015 16:35:53 05/25/2015 23:59:59 CLS Outpatient Kobe Kam [id number] 01/30/2015 22:16:25 01/30/2015 23:59:59 CLS Outpatient KhanhErica [id number] 01/30/2015 22:10:55 01/30/2015 23:59:59 CLS Outpatient Kobe Kam [id number] 01/30/2015 21:50:08 01/30/2015 23:59:59 CLS Outpatient KhanhErica [id number] 01/30/2015 21:35:44 01/30/2015 23:59:59 CLS Outpatient KhanhErica [id number] 09/19/2014 16:31:06 09/19/2014 23:59:59 CLS Outpatient Bhavesh Grider [id number] 09/14/2014 17:47:59 09/14/2014 23:59:59 CLS Outpatient Bhavesh Grider [id number] 10/07/2018 08:09:00 Document Registration [id number] 11/18/2018 11:00:00 11/18/2018 23:59:59 CLS Outpatient [facility] [id number] 02/26/2012 13:41:00 02/26/2012 23:59:59 CLS Outpatient
== END 2018-12-05 09:00 | disposition home or self-care (01) | DRG 621 ==
LOC: SDC 08:55 → 4TH 08:55 → EDSTATUS 11:15 → 4TH 14:00 → SDC 14:00 → UNDOADMIN 14:01 → 4TH 14:01 → SDC 14:01 → 4TH 12-04 08:42 → UNDODISIN 12-05 09:00
PROVIDERS: ADMIT Surgery; ATTEND Surgery
PROC: 0DV Gastrointestinal System, Restriction (ICD-10-PCS; 2018-12-03)
PROC: 0DB64Z3 Excision of Stomach, Percutaneous Endoscopic Approach, Vertical (ICD-10-PCS; principal; 2018-12-03 12:09)
DX: E66.01 Morbid (severe) obesity due to excess calories (principal); Z68.36 Body mass index [BMI] 36.0-36.9, adult; K21.9 Gastro-esophageal reflux disease without esophagitis; K44.9 Diaphragmatic hernia without obstruction or gangrene; F32.9 Major depressive disorder, single episode, unspecified; M17.0 Bilateral primary osteoarthritis of knee; M19.011 Primary osteoarthritis, right shoulder; M19.012 Primary osteoarthritis, left shoulder
CPT/HCPCS: 36415; 80048; 85025; 85027; 87081; 88307; 94640; 94664; 94760

== ENCOUNTER 2019-01-05 09:09 | Outpatient (CLI) | payer MEDICARE ==
[~2019-01-05] VITALS: Ht 170.2 cm; Wt 104.4 kg
[~2019-01-05 09:09] MED LIST changes: +HYDR-34 PO; +ONDN4T PO
== END 2019-01-05 10:33 | disposition home or self-care (01) ==
LOC: PREOP 09:09
PROVIDERS: ATTEND Surgery
DX: Z01.818 Encounter for other preprocedural examination (principal)

== ENCOUNTER 2019-01-06 10:14 | Day surgery (SDC) | payer MEDICARE, OTHER ==
[~2019-01-06] VITALS: Ht 170.2 cm; Wt 104.4 kg
[2019-01-06] VITALS (15 sets, daily range): BP systolic 105–170; BP diastolic 50–85
[2019-01-06] MEDS ORDERED: NS IV 500 ML 500 ML ONE (10:45)
[2019-01-06] MEDS ORDERED: NS IV 500 ML 500 ML IV PRN (11:47)
[2019-01-06] MEDS ORDERED: LIDOCAINE JELLY 2% 6 ML SYRINGE ONE (11:56)
[2019-01-06] MEDS ORDERED: fentaNYL INJECTION 100 MCG/2 ML AMP ONE (11:57)
[2019-01-06] MEDS ORDERED: MIDAZOLAM 2 MG/2 ML (VERSED) VIAL ONE ×5 (11:57)
[2019-01-06] MEDS ORDERED: HURRICAINE EXT TUBE (BENZOCAINE) ONE (11:57)
[2019-01-06] MEDS ORDERED: HURRICAINE EXT TUBE (BENZOCAINE) XX PRN (12:00)
[2019-01-06] MEDS ORDERED: LIDOCAINE JELLY 2% 6 ML SYRINGE MM PRN (12:00)
[2019-01-06] MEDS ORDERED: ONDANSETRON 4 MG/2 ML (SDV) Z0FRAN ONE (12:19)
[2019-01-06] MEDS: MIDAZOLAM 2 MG/2 ML (VERSED) VIAL IVP ONE (12:30)
[2019-01-06] MEDS: fentaNYL INJECTION 100 MCG/2 ML AMP IVP ONE (12:32)
--- NOTE | 2019-01-06 13:06 | Conscious Sedation/ASA ---
Conscious Sedation Pre-Proced Time 12:00 ASA Score 2 For ASA 3 and 4: Consider anesthesia and medical clearance. Also, for patients with a history of failed moderate sedation consider anesthesia. Airway Lungs Heart ASA score ASA 1: a normal healthy patient ASA 2: a patient with a mild systemic disease (mid diabetes, controlled hypertension, obesity ASA 3: a patient with a severe systemic disease that limits activity (angina, COPD, prior Myocardial infarction) ASA 4: a patient with an incapacitating disease that is a constant threat to life (CHF, renal failure) ASA 5: a moribund patient not expected to survive 24 hrs. (ruptured aneurysm) ASA 6: a declared brain- patient whose organs are being harvested. For emergent operations, add the letter E after the classification Mallampati Classification Grade 2 Sedation Plan Analgesia, Amnesia, Plan communicated to team members, Discussed options with patient/fam, Discussed risks with patient/fam The patient is an appropriate candidate to undergo the planned procedure, sedation, and anesthesia. The patient immediately re-assessed prior to indication. ELIDA FERNANDO MD Jan 06, 2019 13:06
--- NOTE | 2019-01-06 13:07 | Progress Note-Pre Operative ---
Pre-Operative Progress Note H&P Reviewed The H&P was reviewed, patient examined and no changes noted. Date Seen by Provider: Jan 06, 2019 Time Seen by Provider: 12:00 Date H&P Reviewed: Jan 06, 2019 Time H&P Reviewed: 12:00 Pre-Operative Diagnosis: dysphagia ELIDA FERNANDO MD Jan 06, 2019 13:07
--- NOTE | 2019-01-06 13:09 | Progress Note-Post Operative ---
Post-Operative Progess Note Surgeon (s)/Utility Mechanic Supervisor (s) Surgeon ELIDA FERNANDO MD Utility Mechanic Supervisor: none Pre-Operative Diagnosis dysphagia Post-Operative Diagnosis reflux esophagitis(stage 2), no distal esoph stricture, mild stricture gastric pouch neara incisura angularis, mod-severe antritis. Procedure & Operative Findings Date of Procedure 01/06/19 Procedure Performed/Findings EGD with bx and balloon dilatation. Anesthesia Type cs Estimated Blood Loss Estimated blood loss (mL): minimal Specimens/Packing Specimens Removed antrum, ge jxn ELIDA FERNANDO MD Jan 06, 2019 13:09
--- NOTE | 2019-01-06 13:11 | Discharge Inst-Surgical ---
D/C Lap Instructions-ABDULLAHI Follow Up Appt in 6 weeks Activity as tolerated Phase 2 soft diet for next two weeks then regular diet. Avoid Alcohol, Caffeine, Spicy [place] and Acid foods. Drink 64 fluid oz or more of fluids per day. Symptoms to Report: Fever over 101 degree F, Nausea/Vomiting If any problems/questions: Contact your physician or go to Emergency Room ELIDA FERNANDO MD Jan 06, 2019 13:11
[2019-01-06] MEDS ORDERED: ONDANSETRON 4 MG/2 ML (SDV) Z0FRAN IVP PRN (13:15)
[2019-01-06] MEDS ORDERED: HYDROcodone/APAP 5 MG/325 MG (LORTAB) TAB PO PRN (13:15)
[2019-01-06] MEDS ORDERED: morphine INJ 10 MG/ML 1ML (SYR OR VIAL) IVP PRN ×2 (13:15)
[2019-01-06] MEDS ORDERED: ACETAMINOPHEN 325 MG TABLET PO PRN (13:15)
--- NOTE | 2019-01-06 20:41 | OPERATIVE REPORT ---
DATE OF SERVICE: 01/06/2019 ATTENDING PRIMARY GRIP ASSEMBLER: Verenice Ellison APRN. PREOPERATIVE DIAGNOSES: Dysphagia status post gastric sleeve resection and hiatal hernia repair. POSTOPERATIVE DIAGNOSES: Reflux esophagitis stage II, intact gastric pouch with a mild stricture at the staple line near the incisura angularis, moderate to severe gastritis of the stomach antrum. PROCEDURE: EGD with biopsy and balloon dilatation. SURGEON: Elida Fernando MD ANESTHESIA: Conscious sedation. ESTIMATED BLOOD LOSS: Minimal. FINDINGS: Reflux esophagitis stage II, intact gastric pouch with a mild stricture at the staple line near the incisura angularis, moderate to severe gastritis of the stomach antrum. DISPOSITION: The patient tolerated the procedure well. INDICATIONS: The patient is a 63-year-old female known to us. She has a history of morbid obesity and medical comorbidities including gastroesophageal reflux disease, depression and degenerative joint disease and status post laparoscopic gastric sleeve resection and hiatal hernia repair on 12/03/2018. She was seen at her 2-week postoperative visit and was doing well with clear liquid diet and was able to take in 64 fluid ounces of water daily. She then tried to introduce soft foods to her diet and has had increasingly difficult time keeping the food down and has developed reflux. Upon further questioning, she reports that she does not take her Protonix on everyday basis. DESCRIPTION OF PROCEDURE: The patient was brought to the endoscopy suite, laid in the left lateral decubitus position. After adequate IV pain and sedating medications and conscious sedation anesthesia, the mouthpiece was applied. Endoscope was placed in the mouth, visualizing the pharynx and hypopharyngeal region. Vocal cords, epiglottis and vallecula identified and appeared to be normal. The endoscope was then gently intubated in the esophageal opening and esophagus insufflated. The endoscope was then advanced to the first, second and third portion of the esophagus at the level of the GE junction, a reflux esophagitis stage II identified. There were also linear erosions consistent with acid reflux. A biopsy was taken of this region using forceps with visualization of good hemostasis. There did not appear to be any strictures in the GE junction region. The endoscope was then advanced into the stomach where the gastric pouch was intact. At the level of the incisura angularis staple line region, there appeared to be a mild stricture. The endoscope was able to pass through this region and at the stomach antrum, there was a moderate to severe gastritis; however, no formal ulcerations, polyps, or any neoplasms. A biopsy was taken of the antrum with forceps with visualization of good hemostasis. The endoscope was then advanced to the pylorus and the first and second portion of the duodenum, which appeared normal with no distal obstructions. We then proceeded with balloon dilatation of the area of the stricture of the incisura angularis using a balloon. The balloon was placed into the antrum and pulled back to the area of the stricture. We first proceeded to 2 atmospheres of pressure with no resistance. We then proceeded with 4 atmospheres of pressure, 19 mm in diameter with moderate resistance and left this in place for 60 seconds. The balloon was then desufflated and removed with visualization of good hemostasis as well as no mucosal tears. The endoscope was then slowly withdrawn while taking a second look and suctioning residual air with no additional findings. The patient tolerated the procedure well. We will recommend the necessary lifestyle and diet accommodation including for now a phase 2 soft diet and to take in very smaller more frequent meals. She also needs to take her Protonix 40 mg on every day regular basis. She may need further created dilatation. We will have her follow up in approximately 6 weeks and find out if she has any recurrence of symptoms of dysphagia with solids and if so, we will schedule her for graded dilatation. Job ID: [id number] DocumentID: [id number] Dictated Date: 01/06/2019 13:01:40 Quality Nurse Date: 01/06/2019 20:41:15 Dictated By: ELIDA FERNANDO MD
== END 2019-01-06 14:10 | disposition home or self-care (01) ==
LOC: ENDO 10:14
PROVIDERS: ATTEND Surgery
DX: K21.0 Gastro-esophageal reflux disease with esophagitis (principal); K95.89 Other complications of other bariatric procedure; K29.70 Gastritis, unspecified, without bleeding; M17.0 Bilateral primary osteoarthritis of knee; M19.019 Primary osteoarthritis, unspecified shoulder; F32.9 Major depressive disorder, single episode, unspecified; E66.01 Morbid (severe) obesity due to excess calories; Z79.899 Other long term (current) drug therapy; Z87.11 Personal history of peptic ulcer disease; Z90.49 Acquired absence of other specified parts of digestive tract; Z90.710 Acquired absence of both cervix and uterus; Z80.49 Family history of malignant neoplasm of other genital organs; Z82.49 Family history of ischemic heart disease and other diseases of the circulatory system; Z80.3 Family history of malignant neoplasm of breast; Z80.8 Family history of malignant neoplasm of other organs or systems; Z68.36 Body mass index [BMI] 36.0-36.9, adult
CPT/HCPCS: 88305